=== PATIENT | male | born 1940 | race Caucasian/White ===

== ENCOUNTER 2016-03-04 00:08 | Emergency (ER) ==
[2016-03-04 00:08] VITALS: BMI 28.2
[2016-03-04 00:17] VITALS: BP 132/75; TEMP 97.6
--- NOTE | 2016-03-04 01:05 | ED.PDOC ---
General ED Provider: Dr. BASILIO CHANDRA-ER Chief Complaint: Foreign Body in Ear Stated Complaint: i have a piece of paper stuck in my ear Time Seen by Physician: 00:10 Mode of Arrival: Walk-In Information Source: Patient, Family Exam Limitations: No limitations Primary Care Provider: HIRA PARKER Nursing and Triage Documentation Reviewed and Agree: Yes EENT Complaint Exam - Ear Complaint/Exam Onset/Duration: one hour Symptoms Are: Still present Timing: Constant Initial Severity: Mild Current Severity: Mild Character: Reports: Dull pain Aggravating: Reports: Foreign body Alleviating: Reports: None Associated Signs and Symptoms: Denies: Ear trauma, Ear swelling, Discharge, Fever, Hearing loss, Bleeding, Sore throat, Headache, URI symptoms, Foreign body sensation, Rash, Pain to external ear, Pain to external face Ear Surgical History: None Vesicles to External Pinna: No Vesicles to Tragus: No External Canal: Normal Material in Canal: Present: Foreign body Differential Diagnoses: Foreign Body Review of Systems - Review Of Systems Constitutional: Reports: No symptoms Eyes: Reports: No symptoms Ears, Nose, Mouth, Throat: Reports: Ear pain Respiratory: Reports: No symptoms Cardiac: Reports: No symptoms GI: Reports: No symptoms : Reports: No symptoms Musculoskeletal: Reports: No symptoms Skin: Reports: No symptoms Neurological: Reports: No symptoms Endocrine: Reports: No symptoms Hematologic/Lymphatic: Reports: No symptoms All Other Systems: Reviewed and Negative Past Medical History - Past Medical History Endocrine: Reports: DM 2, Dyslipidemia Cardiovascular: Reports: Hypertension, CHF, A-Fib Respiratory: Reports: COPD Hematological: Reports: Anemia Gastrointestinal: Reports: GERD Genitourinary: Reports: None Neuro/Psych: Reports: Depression Musculoskeletal: Reports: Arthritis, Joint Pain, Gout Cancer: Reports: None - Surgical History General Surgical History: Reports: None - Family History Family History: Reports: None - Social History Smoking Status: Former smoker Hx Substance Use: No Alcohol Screening: None Lives: With family - Immunizations Tetanus Shot up to Date: Yes Physical Exam - Physical Exam Appearance: Well-appearing, No pain distress, Well-nourished Eyes: VISHAL, EOMI, Conjunctiva clear ENT: Ears normal (noted paper f.b in left ext canal), Nose normal, Oropharynx normal Neck: Supple Respiratory: Airway patent, Breath sounds clear, Breath sounds equal, Respirations nonlabored Cardiovascular: RRR GI/: Soft, Nontender, No masses, Bowel sounds normal, No Organomegaly Musculoskeletal: Normal strength, ROM intact, No edema, No calf tenderness Skin: Warm, Dry, Normal color Neurological: Sensation intact, Motor intact, Reflexes intact, Cranial nerves intact, Alert, Oriented Psychiatric: Affect appropriate, Mood appropriate Procedures - Foreign Body Removal Location of Foreign Object: left ext canal Foreign Object: paper Type of Anesthesia: None Irrigation: No Skin Incised: No Instruments Used: Yes: Forceps Foreign Body Identified and Removed: Yes Re-Evaluation - Re-Evaluation Time of Re-Evaluation: 01:05 Status: Improved Vital Signs Stable: Yes Pain Level: 0 Appearance: NAD Lungs: Clear Skin: Warm and Dry Neuro: Alert and Oriented X3 CV: RRR Critical Care Note - Critical Care Note Total Time (mins): 0 Course - Course Vital Signs: Temp Pulse Resp BP Pulse Ox 03/04/16 00:09 97.6 F 71 16 132/75 96 Departure - Departure Time of Disposition: 01:05 Disposition: HOME SELF-CARE Discharge Problem: Foreign body in ear Instructions: Ear Foreign Body (ED) Condition: Good Pt referred to PMD for follow-up: Yes Additional Instructions: rtn prn Allergies/Adverse Reactions: Allergies No Known Allergies Allergy (Verified 03/04/16 00:17) Home Medications: Ambulatory Orders Atorvastatin Calcium 40 mg PO DAILY 10/08/12 Digoxin 0.125 mg PO DAILY 10/08/12 Pantoprazole Sodium [Protonix] 40 mg PO BID 10/08/12 Rivaroxaban [Xarelto] 20 mg PO DAILY 10/08/12 Sotalol HCl [Sotalol] 80 mg PO BID 10/08/12 Cetirizine HCl [Zyrtec] 10 mg PO DAILY 03/11/13 Sitagliptin Phos/Metformin HCl [Janumet 50-1,000 mg Tablet] 1 each PO BID Levothyroxine Sodium [Synthroid] 150 mcg PO DAILY 06/02/14 [place]-3 Acid Ethyl Esters [Lovaza] 1 cap PO BID 06/03/15 Allopurinol 100 mg PO DAILY #30 tablet 06/08/15 Alprazolam [Xanax] 0.5 mg PO BID #60 tablet 06/08/15 Diltiazem HCl [Cardizem] 60 mg PO Q8HR #90 tablet 06/08/15 Furosemide [Lasix Tab] 40 mg PO BIDAC #60 tablet 06/08/15 Disposition Discussed With: Patient, Family
== END 2016-03-04 01:10 | disposition home or self-care (01) ==
LOC: ED 00:08
DX: T16.2XXA Foreign body in left ear, initial encounter (principal); X58.XXXA Exposure to other specified factors, initial encounter
CPT/HCPCS: 99282

== ENCOUNTER 2016-06-20 14:00 | Outpatient (RCR) ==
--- NOTE | 2016-06-07 15:51 | RS.OPPTEV2 ---
Date of Note: 06/07/16 Visit #: 1 Date of Evaluation: 06/07/16 Payer Source: MEDICARE Treatment Diagnosis: Low back pain, Degenerative Disc Disease, Sciatica History of Condition/Mechanism of Injury:: Patient reports a history of back problems for over twenty years. States this year pain has been worse. Reports no known injuries or reason for increased pain. Prior Level of Function.....Patient was independent with: ADL's, Self Care, Work /Vocation, Caregiving, Ambulation/Mobility, Community Integration/Access Functional Limitations: Sleep, ADL's, Reaching, Pushing, Pulling, Lifting, Carrying, Standing, Bending, Ambulation, Community Access/Integration Current Subjective/complaints:: Patient reports having a long history of low back pain. States for some reason, it has been worse this year. States he received an injection in the arm and just finished a steroid pack. Reports the injection and the steroid have helped decrease his pain. States pain has been in across the low back, into the buttocks, sides of the legs, and down. States pain never goes past the knees. He denies any weakness of numbness in the LE' s. Reports walking and standing causes him the most pain. He has been walking with a walking stick, which he feels helps him. Reports when he sits, he has to change positions frequently. States he gets a little relief when sitting in a recliner with his legs elevated. States he was told years ago that his back is a mess. He wants to avoid surgery. 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 States he has difficulty working with the horses. Reports having to lift 50# bags of feed. Medical History Medical History: Diabetes, Arthritis Smoking Status: Never smoker Diagnostic Testing/Imaging:: none recent Hx Home Medications: not given Patient's Goals: His goal is to get relief of low back and LE pain. Pain Assessment - Pain Description Pain Location: low back and into bilateral LE's. Current Pain Intensity: 8/10 Worst Pain Intensity: 10/10 Functional Outcome Measure Oswestry LBP: 62 - G Codes & Severity Modifier G Codes & Modifier: Mobility current CL. Mobility goal CJ Source of G Code score: Oswestry LBP scale Observation - Observation Posture: Forward Head, Rounded Shoulders, Increased Thoracic Kyphosis, Decreased Lumbar Lordosis, Posterior Pelvic Tilt Gait - Gait Pattern Gait Comments: Ambulates independently with a walking stick, without significant gait deviation. - ROM Lumbar Flexion: Hand reach to patellae Sidebending to Left: Reach to Mid-thigh Sidebending to Right: Reach to Mid-thigh Lumbar Spine ROM Limitations: Soft Tissue Tightness Comments: Lumbar extension to ~20 degrees past neutral with increased reports of pain. Bilateral LE AROM is WFL's. - Strength Trunk Rotation: 4 Good Comments: Bilateral LE 4+ to 5/5 throughout. - Special Tests HARLAN Test: Negative Left, Negative Right SLR Test: Negative Left, Negative Right Seated Dural Stretch Test: Negative Right, Positive Left, Positive Right SI Joint Compression: Negative Palpation Comments:: Patient reports no significant tenderness along the lumbar paraspinals. Demonstrates moderate muscle guarding along the lumbar paraspinals. Sensation - Sensation Right Lower Extremity: Intact/Normal Left Lower Extremity: Intact/Normal Additional Comments: Additional Comments: Left leg longer in long sitting and supine. (Patient states as a child he would have to have one shoe built up). Right SLR to 35 degrees in supine, Left SLR to 40-45 degrees. Interventions - Exercise/Activities/Manual Therapy Exercises/Activities: NA Manual Therapy: NA - Charges Total Direct Minutes: 45 mins Total Treatment Time: 45 mins Procedures billed for this date of service:: STEVEN [facility] Assessment Assessment: Patient presents to therapy with a diagnosis of low back pain. He demonstrates moderate increased muscle tone along the lumbar paraspinals. Reports difficulty tolerating standing and walking due to pain. Reports back pain and LE radiating symptoms. Presents with possibly an actual leg length descrepancy and does demonstrate an imbalance of hamstring flexibility. He will benefit from stretching exercies and progressed stability exercises to reduce his pain and increase his level of function. Patient Education: Education of diagnosis, Body/Joint mechanics, Activity Modification, Education of Plan of Care Rehab Potential: Good Short Term Goals Goal #1: Pt independent in basic HEP. Goal to be met by: 06/21/16 Goal #2: SLR bilaterally to 50 degrees. Goal to be met by: 06/21/16 Goal #3: LE pain localized to the low back. Goal to be met by: 06/21/16 Assisted Goals Goal #1: Pt knows HEP and to continue ex's to maintain functional level at D/C. Goal to be met by: 07/07/16 Goal #2: Score on Oswestry LBP scale improved to 38. Goal to be met by: 07/07/16 Goal #3: Pt to tolerate standing and walking as needed with minimal low back pain. Goal to be met by: 07/07/16 Goal #4: Pt to demonstrate understanding of back safety and proper body mechanics. Goal to be met by: 07/07/16 Plan - Treatment to be Provided Procedures: Therapeutic Exercises, Therapeutic Activity, Patient Education Modalities: Electrical Stimulation, Ultrasound/Phonophoresis, Cryotherapy, Hot Packs - Treatment Plan Frequency: 3 X week Duration: 3 weeks ORDER # VISITS AND/OR THROUGH DATE: 07/07/16 - Treatment Code (1) Low back pain Qualifiers: Chronicity: unspecified Back pain laterality: unspecified Sciatica presence: with sciatica Sciatica laterality: bilateral sciatica Qualified Description: Low back pain with bilateral sciatica, unspecified back pain laterality, unspecified chronicity Qualifier Code(s): (M54.42) Lumbago with sciatica, left side, (M54.41) Lumbago with sciatica, right side (2) Lumbar degenerative disc disease Comments: M51.36
--- NOTE | 2016-06-09 13:10 | RS.OPPTDN ---
Subjective Date of Note: 06/09/16 Visit #: 2 Date of Evaluation: 06/07/16 Payer Source: MEDICARE Treatment Diagnosis: Low back pain, Degenerative Disc Disease, Sciatica Current Subjective/complaints:: Patient reports pain across S-I joint with left side greater than right. Reports pain radiates at times from left S-I joint around to the left hip. Pain Assessment - Pain Description Pain Location: low back and into bilateral LE's. Current Pain Intensity: 8/10 Other Comments regarding Pain:: Reports pain decreased following treatment in mild to mod range. - Treatment Modality: US with ES (Comb.) Parameters/Method Applied: [id number] with US at 1.5w/cm2 and Estim to 18p.v. to the bilateral lumbar paraspinals and S-I joints. Patient Position: Right Sidelying - Heat/Cryotherapy Treatment: Hot Pack ([id number] to the low back and hips prior to USCOM and EX. Patient in supine. ) Interventions - Exercise/Activities/Manual Therapy Exercises/Activities: [id number] Assisted stretching of the bilateral hamstrings, SKTC, and piriformis. Reveiwed dx, body mechanics, safety, and HEP. Patient given copies of exercises. Total minutes of Exercise: 15mins Manual Therapy: NA HOME EXERCISE PROGRAM: HS, piriformis, and SKTC stretching. - Charges Total Direct Minutes: 29mins Total Treatment Time: 49mins Procedures billed for this date of service:: HP, USCOM, EX Assessment: Patient responded well to treamtent and appears motivated to progress with HEP. Patient Education: Education of diagnosis, Body/Joint mechanics, Home Exercise Program Patient demonstrates compliance with HEP?: Yes Short Term Goals Goal #1: Pt independent in basic HEP. Goal to be met by: 06/21/16 Progress towards Goal:: Progressing Goal #2: SLR bilaterally to 50 degrees. Goal to be met by: 06/21/16 Goal #3: LE pain localized to the low back. Goal to be met by: 06/21/16 Fdc Goals Goal #1: Pt knows HEP and to continue ex's to maintain functional level at D/C. Goal to be met by: 07/07/16 Progress towards goal: Progressing Goal #2: Score on Oswestry LBP scale improved to 38. Goal to be met by: 07/07/16 Goal #3: Pt to tolerate standing and walking as needed with minimal low back pain. Goal to be met by: 07/07/16 Progress towards goal: Progressing Goal #4: Pt to demonstrate understanding of back safety and proper body mechanics. Goal to be met by: 07/07/16 Plan PLAN OF CARE EXPIRES ON:: 07/07/16 ORDER # VISITS AND/OR THROUGH DATE: 07/07/16 PLAN: Continue Plan of Care
--- NOTE | 2016-06-12 13:18 | RS.OPPTDN ---
Subjective Date of Note: 06/12/16 Visit #: 3 Date of Evaluation: 06/07/16 Payer Source: MEDICARE Treatment Diagnosis: Low back pain, Degenerative Disc Disease, Sciatica Current Subjective/complaints:: Patient reports last treatment reduced pain and he was able to be more mobilie around his home. States he has some muscle soreness in LE's which he believes is due to starting exercise. Pain Assessment - Pain Description Pain Location: low back and into bilateral LE's. Current Pain Intensity: moderate, does not rate on 0-10 scale - Treatment Modality: US with ES (Comb.) Parameters/Method Applied: [id number] with US at 1.5w/cm2 and Estim to 18-19 p.v. to the bilateral lower lumbar paraspinals and S-I joints. Patient Position: Right Sidelying - Heat/Cryotherapy Treatment: Hot Pack ([id number] to lowback and hips prior to USCOM and EX. Patient in supine with LE's elevated. ) Interventions - Exercise/Activities/Manual Therapy Exercises/Activities: [id number] Assisted stretching of the bilateral hamstrings, SKTC, and piriformis. Reveiwed HEP and advised patient to continue stretching exercise with no additions. Total minutes of Exercise: 10mins Manual Therapy: NA HOME EXERCISE PROGRAM: HS, piriformis, and SKTC stretching. - Charges Total Direct Minutes: 24mins Total Treatment Time: 44mins Procedures billed for this date of service:: HP, USCOM, EX Assessment: Patient reporting good response to treatment. He will need to continue flexibility exercises and progress to trunk stability when tolerated. Patient Education: Body/Joint mechanics, Home Exercise Program, Activity Modification Patient demonstrates compliance with HEP?: Yes Short Term Goals Goal #1: Pt independent in basic HEP. Goal to be met by: 06/21/16 Progress towards Goal:: Progressing Goal #2: SLR bilaterally to 50 degrees. Goal to be met by: 06/21/16 Goal #3: LE pain localized to the low back. Goal to be met by: 06/21/16 Malt House Operator Goals Goal #1: Pt knows HEP and to continue ex's to maintain functional level at D/C. Goal to be met by: 07/07/16 Progress towards goal: Progressing Goal #2: Score on Oswestry LBP scale improved to 38. Goal to be met by: 07/07/16 Goal #3: Pt to tolerate standing and walking as needed with minimal low back pain. Goal to be met by: 07/07/16 Progress towards goal: Progressing Goal #4: Pt to demonstrate understanding of back safety and proper body mechanics. Goal to be met by: 07/07/16 Progress towards goal: Progressing Plan PLAN OF CARE EXPIRES ON:: 07/07/16 ORDER # VISITS AND/OR THROUGH DATE: 07/07/16 PLAN: Continue Plan of Care (Continue modalities and progressive exercise to reduce pain and increase functional activity level.)
--- NOTE | 2016-06-14 14:32 | RS.OPPTDN ---
Subjective Date of Note: 06/14/16 Visit #: 4 Date of Evaluation: 06/07/16 Payer Source: MEDICARE Treatment Diagnosis: Low back pain, Degenerative Disc Disease, Sciatica Current Subjective/complaints:: Patient reports lowback and S-I region pain continues to improve. Now reports discomfort at lateral hip joints. States he is working on HEP and continues to walk with cane. Pain Assessment - Pain Description Pain Location: low back and into bilateral LE's. Current Pain Intensity: moderate, does not rate on 0-10 scale - Treatment Modality: US with ES (Comb.) Parameters/Method Applied: [id number] US at 1.5w/cm2 and Estim at 17p.v. to the bilateral lower lumbar paraspinals, S-I joints, and out to piriformis insertion at lateral hips. Patient in side-lying and changes sides midway through treatment. - Heat/Cryotherapy Treatment: Hot Pack ([id number] to the lowback and hips prior to USCOM and EX. Patient in supine. ) Interventions - Exercise/Activities/Manual Therapy Exercises/Activities: Discussed HEP. Advised patient to rest when he gets home and resume exercise in the afternoon. Manual Therapy: NA HOME EXERCISE PROGRAM: HS, piriformis, and SKTC stretching. - Charges Total Direct Minutes: 14mins Total Treatment Time: 34mins Procedures billed for this date of service:: HP, USCOM Assessment: Patient with increased discomfort at the lateral hips. He will need to rest and resume gentle stretching in afternoon. Patient Education: Home Exercise Program Patient demonstrates compliance with HEP?: Yes Short Term Goals Goal #1: Pt independent in basic HEP. Goal to be met by: 06/21/16 Progress towards Goal:: Progressing Goal #2: SLR bilaterally to 50 degrees. Goal to be met by: 06/21/16 Goal #3: LE pain localized to the low back. Goal to be met by: 06/21/16 Title Curator Goals Goal #1: Pt knows HEP and to continue ex's to maintain functional level at D/C. Goal to be met by: 07/07/16 Progress towards goal: Progressing Goal #2: Score on Oswestry LBP scale improved to 38. Goal to be met by: 07/07/16 Goal #3: Pt to tolerate standing and walking as needed with minimal low back pain. Goal to be met by: 07/07/16 Progress towards goal: Progressing Goal #4: Pt to demonstrate understanding of back safety and proper body mechanics. Goal to be met by: 07/07/16 Progress towards goal: Progressing Plan PLAN OF CARE EXPIRES ON:: 07/07/16 ORDER # VISITS AND/OR THROUGH DATE: 07/07/16 PLAN: Continue Plan of Care (Continue modalities and progress exercise next session as tolerated.)
--- NOTE | 2016-06-16 12:09 | RS.OPPTDN ---
Subjective Date of Note: 06/16/16 Visit #: 5 Date of Evaluation: 06/07/16 Payer Source: MEDICARE Treatment Diagnosis: Low back pain, Degenerative Disc Disease, Sciatica Current Subjective/complaints:: Patient reports the muscle soreness in his legs from exercising is improving.He also reports doing his stretches 3x/day. Pain Assessment - Pain Description Pain Location: low back and into bilateral LE's. Current Pain Intensity: /10 - Treatment Modality: US with ES (Comb.) Parameters/Method Applied: US @ 1.5 w/cm2,e-stim @ 15-16pv x 20 mins. total,(10 mins. each side). Treatment Area: lumbar/lateral aspect of each hip - Heat/Cryotherapy Treatment: Hot Pack (20 mins. prior to USCOM,and exercises) Interventions - Exercise/Activities/Manual Therapy Exercises/Activities: 20 mins.SKTC,hamstring stretches,piriformis stretches,HEP review/body mechanics education. Total minutes of Exercise: 20 Manual Therapy: NA Total minutes of Manual Therapy: 0 HOME EXERCISE PROGRAM: HS, piriformis, and SKTC stretching. - Charges Total Direct Minutes: 20 Total Treatment Time: 40 Procedures billed for this date of service:: hp,USCOM,ex 1 Assessment: Patient reports relief after treatment today,has improved rolling to L and R with les report of back pain.He reports relief when sleeping on his back if knees are supported/flexed on pillow.He is compliant to HEP.He enters / exits clinic today without assistive device. Patient Education: Education of diagnosis, Body/Joint mechanics, Home Exercise Program, Home Safety, Activity Modification, Education of Plan of Care Patient demonstrates compliance with HEP?: Yes Short Term Goals Goal #1: Pt independent in basic HEP. Goal to be met by: 06/21/16 Progress towards Goal:: Progressing Goal #2: SLR bilaterally to 50 degrees. Goal to be met by: 06/21/16 Progress towards Goal:: Progressing Goal #3: LE pain localized to the low back. Goal to be met by: 06/21/16 (still in hips,thighs today) Icer Hand Goals Goal #1: Pt knows HEP and to continue ex's to maintain functional level at D/C. Goal to be met by: 07/07/16 Progress towards goal: Progressing Goal #2: Score on Oswestry LBP scale improved to 38. Goal to be met by: 07/07/16 Goal #3: Pt to tolerate standing and walking as needed with minimal low back pain. Goal to be met by: 07/07/16 Progress towards goal: Progressing Goal #4: Pt to demonstrate understanding of back safety and proper body mechanics. Goal to be met by: 07/07/16 Progress towards goal: Progressing Plan PLAN OF CARE EXPIRES ON:: 07/07/16 ORDER # VISITS AND/OR THROUGH DATE: 07/07/16 PLAN: Continue Plan of Care
--- NOTE | 2016-06-20 15:02 | RS.OPPTDN ---
Subjective Date of Note: 06/20/16 Visit #: 6 Date of Evaluation: 06/07/16 Payer Source: MEDICARE Treatment Diagnosis: Low back pain, Degenerative Disc Disease, Sciatica Current Subjective/complaints:: Patient reports he is sleeping better,but his legs and hips are bothering him more today. Pain Assessment - Pain Description Pain Location: low back and into bilateral LE's. Current Pain Intensity: 7/10 - Heat/Cryotherapy Treatment: Hot Pack (20 mins. to lumbar prior to manual therapy.) Interventions - Exercise/Activities/Manual Therapy Exercises/Activities: HEP review while on moist heat. Total minutes of Exercise: 0 Manual Therapy: 30 mins. deep tissue massage to paraspinals. Total minutes of Manual Therapy: 30 HOME EXERCISE PROGRAM: HS, piriformis, and SKTC stretching. - Charges Total Direct Minutes: 30 Total Treatment Time: 50 Procedures billed for this date of service:: hp,manual therapy 2 Assessment: Reports relief after manual therapy today.He continues to be complaint to HEP 3x/day.He reports no tenderness upon deep pressure application to the paraspinals today. Patient Education: Education of diagnosis, Body/Joint mechanics, Home Exercise Program, Home Safety, Activity Modification, Education of Plan of Care Patient demonstrates compliance with HEP?: Yes Short Term Goals Goal #1: Pt independent in basic HEP. Goal to be met by: 06/21/16 Progress towards Goal:: Progressing Goal #2: SLR bilaterally to 50 degrees. Goal to be met by: 06/21/16 Progress towards Goal:: Progressing Goal #3: LE pain localized to the low back. Goal to be met by: 06/21/16 (still in hips,thighs today) Supervisor [employer] Assembly Goals Goal #1: Pt knows HEP and to continue ex's to maintain functional level at D/C. Goal to be met by: 07/07/16 Progress towards goal: Partially Met Goal #2: Score on Oswestry LBP scale improved to 38. Goal to be met by: 07/07/16 Goal #3: Pt to tolerate standing and walking as needed with minimal low back pain. Goal to be met by: 07/07/16 Progress towards goal: Progressing Goal #4: Pt to demonstrate understanding of back safety and proper body mechanics. Goal to be met by: 07/07/16 Progress towards goal: Progressing Plan PLAN OF CARE EXPIRES ON:: 07/07/16 ORDER # VISITS AND/OR THROUGH DATE: 07/07/16 PLAN: Continue Plan of Care
== END 2016-06-25 ==
PROVIDERS: ATTEND Orthopaedic Surgery
DX: M51.16 Intervertebral disc disorders with radiculopathy, lumbar region (principal)

== ENCOUNTER 2016-07-06 09:00 | Outpatient (RCR) ==
--- NOTE | 2016-06-27 14:18 | RS.OPPTDN ---
Subjective Date of Note: 06/27/16 Visit #: 7 Date of Evaluation: 06/07/16 Payer Source: MEDICARE Treatment Diagnosis: Low back pain, Degenerative Disc Disease, Sciatica Current Subjective/complaints:: Patient admits pain to both hips and low back at the spine. He says he is faithful with performing stretches 3 times per day. He says he believes PT is helping. Pain Assessment - Pain Description Pain Location: low back and into bilateral LE's. Current Pain Intensity: "not too bad" - Treatment Modality: US with ES (Comb.) Parameters/Method Applied: continuous @1.5 w/cm2 and 15-17 pk volts x 10 mins to the R hip and 10 to the bilateral lumbar paraspinals Patient Position: Left Sidelying - Heat/Cryotherapy Treatment: Hot Pack (mid to low back in supine x 20) Interventions - Exercise/Activities/Manual Therapy Exercises/Activities: Passive stretching of SKTC, Piriformis, Fig 4, HS, Lower trunk rotation x 4 bilaterally. Total minutes of Exercise: 16 Manual Therapy: na HOME EXERCISE PROGRAM: HS, piriformis, and SKTC stretching. - Charges Total Direct Minutes: 36 Total Treatment Time: 56 Procedures billed for this date of service:: hp, u/s with estim, ex Assessment: Patient is improving with less back and hip pain and pain that is localizing to the lumbar spine. No pain exists beyond the hips distally. He is consistent with HEP and able to eleanor increased stretching in the department. Limitation seen with hip ER bilaterally. Patient Education: Education of diagnosis, Body/Joint mechanics, Home Exercise Program, Home Safety, Activity Modification, Education of Plan of Care Patient demonstrates compliance with HEP?: Yes Short Term Goals Goal #1: Pt independent in basic HEP. Goal to be met by: 06/21/16 Progress towards Goal:: Progressing Goal #2: SLR bilaterally to 50 degrees. Goal to be met by: 06/21/16 Progress towards Goal:: Progressing Goal #3: LE pain localized to the low back. Goal to be met by: 06/21/16 (still in hips,thighs today) Progress towards Goal:: Progressing Inspector Hairspring Goals Goal #1: Pt knows HEP and to continue ex's to maintain functional level at D/C. Goal to be met by: 07/07/16 Progress towards goal: Partially Met Goal #2: Score on Oswestry LBP scale improved to 38. Goal to be met by: 07/07/16 Goal #3: Pt to tolerate standing and walking as needed with minimal low back pain. Goal to be met by: 07/07/16 Progress towards goal: Progressing Goal #4: Pt to demonstrate understanding of back safety and proper body mechanics. Goal to be met by: 07/07/16 Progress towards goal: Progressing Plan PLAN OF CARE EXPIRES ON:: 07/07/16 ORDER # VISITS AND/OR THROUGH DATE: 07/07/16 PLAN: Progress Exercises
--- NOTE | 2016-06-30 12:04 | RS.OPPTDN ---
Subjective Date of Note: 06/30/16 Visit #: 8 Date of Evaluation: 06/07/16 Payer Source: MEDICARE Treatment Diagnosis: Low back pain, Degenerative Disc Disease, Sciatica Current Subjective/complaints:: Patient says that his back has been feeling better with therapy, but c/o stiffness today related to the damp, cool weather. States he had severe cramping to both legs last night (hamstrings) that awakened him. Pain Assessment - Pain Description Pain Location: low back and into bilateral LE's. Current Pain Intensity: "not too bad" - Treatment Modality: US with ES (Comb.) Parameters/Method Applied: continuous @ 1.5 w/cm2 and 13 pk volts x 16 mins bilateral lumbar paraspinals and hips Patient Position: Right Sidelying - Heat/Cryotherapy Treatment: Hot Pack (mid to low back in supine x 20 mins) Interventions - Exercise/Activities/Manual Therapy Exercises/Activities: Passive stretching of SKTC, Piriformis, Fig 4, HS, Lower trunk rotation x 3 bilaterally. Pillow squeezes, isometric hip abd/flexion, and bridging 2/10. Total minutes of Exercise: 17 Manual Therapy: na HOME EXERCISE PROGRAM: HS, piriformis, and SKTC stretching. - Charges Total Direct Minutes: 33 Total Treatment Time: 53 Procedures billed for this date of service:: hp, u/s with estim, ex Assessment: Patient has been having less pain to his hips and back pain is centralized to the lumbar spine, however, he continues with bilateral hamstring cramping. Patient Education: Education of diagnosis, Body/Joint mechanics, Home Exercise Program, Home Safety, Activity Modification, Education of Plan of Care Patient demonstrates compliance with HEP?: Yes Short Term Goals Goal #1: Pt independent in basic HEP. Goal to be met by: 06/21/16 Progress towards Goal:: Progressing Goal #2: SLR bilaterally to 50 degrees. Goal to be met by: 06/21/16 Progress towards Goal:: Progressing Goal #3: LE pain localized to the low back. Goal to be met by: 06/21/16 (still in hips,thighs today) Progress towards Goal:: Progressing Marketing Communications Manager Goals Goal #1: Pt knows HEP and to continue ex's to maintain functional level at D/C. Goal to be met by: 07/07/16 Progress towards goal: Partially Met Goal #2: Score on Oswestry LBP scale improved to 38. Goal to be met by: 07/07/16 Goal #3: Pt to tolerate standing and walking as needed with minimal low back pain. Goal to be met by: 07/07/16 Progress towards goal: Progressing Goal #4: Pt to demonstrate understanding of back safety and proper body mechanics. Goal to be met by: 07/07/16 Progress towards goal: Progressing Plan PLAN OF CARE EXPIRES ON:: 07/07/16 ORDER # VISITS AND/OR THROUGH DATE: 07/07/16 PLAN: Progress Exercises
--- NOTE | 2016-07-04 11:53 | RS.OPPTDN ---
Subjective Date of Note: 07/04/16 Visit #: 9 Date of Evaluation: 06/07/16 Payer Source: MEDICARE Treatment Diagnosis: Low back pain, Degenerative Disc Disease, Sciatica Current Subjective/complaints:: Patient reports the pain is elevated in the low back today,none in the hips at this time. Pain Assessment - Pain Description Pain Location: low back and into bilateral LE's. Pain Description: Tightness, Dull, Aching Current Pain Intensity: 10 - Treatment Modality: US with ES (Comb.) Parameters/Method Applied: 15 mins. with US @ 1.5 w/cm2,continuous @ 13 pv to lumbar/SI borders. Patient Position: Left Sidelying (20 mins. prior to US/combo and exercises) - Heat/Cryotherapy Treatment: Hot Pack (20 mins.in supine prior to US/combo and exercises) Interventions - Exercise/Activities/Manual Therapy Exercises/Activities: Passive stretching of SKTC, Piriformis, Fig 4, HS.HEP review. Total minutes of Exercise: 15 Manual Therapy: na Total minutes of Manual Therapy: 0 HOME EXERCISE PROGRAM: HS, piriformis, and SKTC stretching. - Charges Total Direct Minutes: 30 Total Treatment Time: 50 Procedures billed for this date of service:: hp,US/combo,ex 1 Assessment: Patient reports relief immediately after treatment with initial standing.We discussed removing the L orthotic in his shoe for short durations due to leg length discrepancy (L LE is longer then R LE) to see if this affects his back pain.He understands if this elevates his pain ,return to using the orthotics in both shoes. Patient Education: Education of diagnosis, Body/Joint mechanics, Home Exercise Program, Home Safety, Activity Modification, Education of Plan of Care Short Term Goals Goal #1: Pt independent in basic HEP. Goal to be met by: 06/21/16 Progress towards Goal:: Progressing Goal #2: SLR bilaterally to 50 degrees. Goal to be met by: 06/21/16 Progress towards Goal:: Progressing Goal #3: LE pain localized to the low back. 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 Goal to be met by: 07/07/16 Progress towards goal: Partially Met Goal #2: Score on Oswestry LBP scale improved to 38. Goal to be met by: 07/07/16 Goal #3: Pt to tolerate standing and walking as needed with minimal low back pain. Goal to be met by: 07/07/16 Progress towards goal: Progressing Goal #4: Pt to demonstrate understanding of back safety and proper body mechanics. Goal to be met by: 07/07/16 Progress towards goal: Progressing Plan PLAN OF CARE EXPIRES ON:: 07/07/16 ORDER # VISITS AND/OR THROUGH DATE: 07/07/16 PLAN: Continue Plan of Care
--- NOTE | 2016-07-06 10:55 | RS.OPPTDN ---
Subjective Date of Note: 07/06/16 Date of Evaluation: 06/07/16 Payer Source: MEDICARE Treatment Diagnosis: Low back pain, Degenerative Disc Disease, Sciatica Current Subjective/complaints:: Patient reports sleeping better,but feels the PT sessions are only giving him temporary relief.He understands to continue HEP and is aware of D/C plan. Pain Assessment - Pain Description Pain Location: low back and into bilateral LE's. Pain Description: Tightness, Dull, Aching Current Pain Intensity: 09/04 - Treatment Modality: US with ES (Comb.) Parameters/Method Applied: 15 mins. @1.5 w/cm2,continuous mode,and 13 pv of e- stim to lumbar. Patient Position: Right Sidelying - Heat/Cryotherapy Treatment: Hot Pack (20 mins. prior to modalities.) Interventions - Exercise/Activities/Manual Therapy Exercises/Activities: HEP review while receiving modalities. Total minutes of Exercise: 0 Manual Therapy: na Total minutes of Manual Therapy: 0 HOME EXERCISE PROGRAM: HS, piriformis, and SKTC stretching. - Charges Total Direct Minutes: 15 Total Treatment Time: 35 Procedures billed for this date of service:: hp,us/combo Assessment: Patient has no significant change,reports the low back pain seems to be slightly better,but the hips are still rather painful.He understands the D /C plan due to no significant change.He has an appt. @ pain management clinic on 07-07-16. Patient Education: Body/Joint mechanics, Home Exercise Program, Home Safety, Activity Modification, Education of Plan of Care Short Term Goals Goal #1: Pt independent in basic HEP. Goal to be met by: 06/21/16 Progress towards Goal:: Progressing Goal #2: SLR bilaterally to 50 degrees. Goal to be met by: 06/21/16 Progress towards Goal:: No Change Goal #3: LE pain localized to the low back. Goal to be met by: 06/21/16 (localized today,but inconsistent) Progress towards Goal:: Progressing Custodial Goals Goal #1: Pt knows HEP and to continue ex's to maintain functional level at D/C. Goal to be met by: 07/07/16 Progress towards goal: Partially Met Goal #2: Score on Oswestry LBP scale improved to 38. Goal to be met by: 07/07/16 Progress towards goal: No Change Goal #3: Pt to tolerate standing and walking as needed with minimal low back pain. Goal to be met by: 07/07/16 Progress towards goal: Progressing Goal #4: Pt to demonstrate understanding of back safety and proper body mechanics. Goal to be met by: 07/07/16 Progress towards goal: Progressing Plan PLAN OF CARE EXPIRES ON:: 07/07/16 ORDER # VISITS AND/OR THROUGH DATE: 07/07/16 PLAN: Plan for Discharge
--- NOTE | 2016-08-08 14:40 | RS.OPPTDC ---
Date of Discharge: 07/04/16 Date of Evaluation: 06/07/16 Number of Visits: 9 Treatment Diagnosis: Low back pain, Degenerative Disc Disease, Sciatica Current Complaints/Gains: Patient reports sleeping better, but feels the therapy is temporary relief only. Pain Assessment - Pain Description Pain Location: low back and into bilateral LE's. Pain Description: Tightness, Dull, Aching Current Pain Intensity: 7/10 Functional Outcome Measure Oswestry LBP: 62 - G Codes & Severity Modifier G Codes & Modifier: Mob goal CJ. Mob D/C CL Source of G Code score: Oswestry LBP scale Interventions - Exercise/Activities/Manual Therapy Exercises/Activities: NA Manual Therapy: na HOME EXERCISE PROGRAM: HS, piriformis, and SKTC stretching. - Objective Findings Observations,measurements,etc.: SLR 45 degrees bilaterally. LE strength 4+ to 5/ 5. - Charges Total Direct Minutes: NA Total Treatment Time: NA Procedures billed for this date of service:: NA Assessment Assessment: Patient with reports of improved sleeping, but feels therapy has only provided temporary relief of symptoms. He continues to rate pain 7/10 on last visit. Further therapy not indicated as no lasting benefits are reported. Short Term Goals Goal #1: Pt independent in basic HEP. Goal to be met by: 06/21/16 Progress towards Goal:: Met Goal #2: SLR bilaterally to 50 degrees. Goal to be met by: 06/21/16 Progress towards Goal:: Not Met Goal #3: LE pain localized to the low back. Goal to be met by: 06/21/16 (localized today,but inconsistent) Progress towards Goal:: Not Met Comments:: not consistently localized [facility] Goals Goal #1: Pt knows HEP and to continue ex's to maintain functional level at D/C. Goal to be met by: 07/07/16 Progress towards goal: Partially Met Goal #2: Score on Oswestry LBP scale improved to 38. Goal to be met by: 07/07/16 Progress towards goal: Not Met Goal #3: Pt to tolerate standing and walking as needed with minimal low back pain. Goal to be met by: 07/07/16 Progress towards goal: Not Met Goal #4: Pt to demonstrate understanding of back safety and proper body mechanics. Goal to be met by: 07/07/16 Progress towards goal: Met Plan Reason for Discharge:: Lack of Progress
== END 2016-07-26 ==
PROVIDERS: ATTEND Orthopaedic Surgery
DX: M51.36 Other intervertebral disc degeneration, lumbar region (principal); M54.40 Lumbago with sciatica, unspecified side; G89.29 Other chronic pain

== ENCOUNTER 2016-07-31 14:20 | Emergency (ER) ==
[2016-07-31 14:20] VITALS: BMI 28.2
[2016-07-31 14:23] VITALS: BP 154/96; TEMP 98.8
[2016-07-31] MEDS ORDERED: CARDIZEM PO STA (14:32)
--- NOTE | 2016-07-31 14:40 | ED.PDOC ---
General ED Provider: Dr. JENNIFER HERNANDEZ JR Chief Complaint: Hypertension Stated Complaint: had bp at pain management of 132/108 and they told him to come be seen. also complains of shortness of air and nosebleeds[ End ]98.8 20 94 154/96 10/10 CONGESTED HAVING CRYING SPELLS Time Seen by Physician: 14:40 Mode of Arrival: Walk-In Information Source: Patient Exam Limitations: No limitations Primary Care Provider: HIRA PARKER Nursing and Triage Documentation Reviewed and Agree: No Review of Systems - Review Of Systems Constitutional: Reports: Malaise, Weakness Eyes: Reports: No symptoms Ears, Nose, Mouth, Throat: Reports: No symptoms Respiratory: Reports: Cough, Short of air Cardiac: Reports: Lightheadedness GI: Reports: No symptoms : Reports: No symptoms Musculoskeletal: Reports: Back pain Skin: Reports: No symptoms Neurological: Reports: Emotional problems (CRYING SPELLS) Endocrine: Reports: No symptoms Hematologic/Lymphatic: Reports: No symptoms All Other Systems: Other Past Medical History - Past Medical History Endocrine: Reports: DM 2, Dyslipidemia, Other (GOUT) Cardiovascular: Reports: CAD, Hypertension, CHF, A-Fib Respiratory: Reports: COPD Hematological: Reports: Anemia Gastrointestinal: Reports: GERD Genitourinary: Reports: None Neuro/Psych: Reports: Anxiety, Depression Musculoskeletal: Reports: Arthritis, Joint Pain, Gout Cancer: Reports: None - Surgical History General Surgical History: Reports: None, Cholecystectomy, Orthopedic (LEFT knee replacement, 2 broken arms), Other ( RIGHT CAROTID) - Family History Family History: Reports: None - Social History Smoking Status: Former smoker Hx Substance Use: No Alcohol Screening: None Physical Exam - Physical Exam Appearance: Well-appearing Ill-appearing: Mild Pain Distress: Mild Eyes: VISHAL, EOMI, Conjunctiva clear ENT: Ears normal, Nose normal, Oropharynx normal Neck: Supple Respiratory: Airway patent, Breath sounds diminished Cardiovascular: RRR, Pulses normal, No rub, No murmur GI/: Soft, Nontender, No masses, Bowel sounds normal, No Organomegaly Musculoskeletal: Normal strength, ROM intact, No edema, No calf tenderness (LOW BACK TNDERNESS COMPLAINS OF DECREASSED STRENGHTH) Critical Care Note - Critical Care Note Total Time (mins): 0 Course - Course Orders, Labs, Meds: Orders Category Date Time Status Diltiazem HCl [Cardizem] MEDS 07/31/16 14:32 Discontinued 60 mg PO ONCE STA CHEST, 2 VIEWS PA & LAT Stat RADS 07/31/16 14:48 Completed Medications Discontinued Medications Generic Name Dose Route Start Last Admin Trade Name Huong PRN Reason Stop Dose Admin Diltiazem HCl 60 mg 07/31/16 14:32 07/31/16 14:47 Cardizem PO 07/31/16 14:33 60 mg ONCE STA Administration Vital Signs: Temp Pulse Resp BP Pulse Ox 07/31/16 14:20 98.8 F 111 H 20 154/96 H 94 L EFRA Risk Score EFRA Risk Score: Risk Score Odds of by 30D 0 0.1 (0.1-0.2) 1 0.3 (0.2-0.3) 2 0.4 (0.3-0.5) 3 0.7 (0.6-0.9) 4 1.2 (1.0-1.5) 5 2.2 (1.9-2.6) 6 3.0 (2.5-3.6) 7 4.8 (3.8-6.1) Departure - Departure Time of Disposition: 15:28 Disposition: HOME SELF-CARE Discharge Problem: Pneumonia Qualifiers: Pneumonia type: due to unspecified organism Laterality: unspecified laterality Lung location: unspecified part of lung Qualifier Code: (J18.9) Pneumonia, unspecified organism Instructions: Pneumonia (ED) Condition: Good Pt referred to PMD for follow-up: Yes Additional Instructions: ANTIBIOTIC UNTIL GONE CALL PMD TOMORROW FOR FOLLOW UP RETURN IF SHORT OF BREATH, IF FEVER OVER 101.0, IF WORSENING DISCUSS CRYING SPELLS WITH PMD REVIEW BLOOD PRESSURE TAKE FOUR CARDIZEM A DAY AND CHECK YOUR BLOOD PRESSURE TWICE A DAY AND RECORD LEVELS Prescriptions: Diltiazem HCl [Cardizem] 60 mg PO QID #120 tablet Doxycycline Monohydrate [Monodox] 100 mg PO BID #20 capsule Allergies/Adverse Reactions: Allergies acetaminophen [From [place]] Adverse Reaction (Verified 07/31/16 14:23) hydrocodone [From [place]] Adverse Reaction (Verified 07/31/16 14:23) Home Medications: Ambulatory Orders Atorvastatin Calcium 40 mg PO DAILY 10/08/12 Digoxin 0.125 mg PO DAILY 10/08/12 Pantoprazole Sodium [Protonix] 40 mg PO BID 10/08/12 Rivaroxaban [Xarelto] 20 mg PO DAILY 10/08/12 Sotalol HCl [Sotalol] 80 mg PO BID 10/08/12 Cetirizine HCl [Zyrtec] 10 mg PO DAILY 03/11/13 Sitagliptin Phos/Metformin HCl [Janumet 50-1,000 mg Tablet] 1 each PO BID Levothyroxine Sodium [Synthroid] 150 mcg PO DAILY 06/02/14 Rhododendron-3 Acid Ethyl Esters [Lovaza] 1 cap PO BID 06/03/15 Allopurinol 100 mg PO DAILY #30 tablet 06/08/15 Alprazolam [Xanax] 0.5 mg PO BID #60 tablet 06/08/15 Diltiazem HCl [Cardizem] 60 mg PO Q8HR #90 tablet 06/08/15 Furosemide [Lasix Tab] 40 mg PO BIDAC #60 tablet 06/08/15 Diltiazem HCl [Cardizem] 60 mg PO QID #120 tablet 07/31/16 Doxycycline Monohydrate [Monodox] 100 mg PO BID #20 capsule 07/31/16
--- NOTE | 2016-07-31 15:20 | DI ---
EXAM: Two views of the chest. History: Cough and congestion. Comparison: Chest radiograph 07/10/2015 Findings: Heart size is normal. Interval development of interstitial thickening. No definite pleu ral fluid and no pneumothorax. No acute osseous abnormalities. Impression: Interval development of interstitial thickening could represent edema and/or pneumonia.
== END 2016-07-31 16:51 | disposition home or self-care (01) ==
LOC: ED 14:20
DX: J18.9 Pneumonia, unspecified organism (principal); I10 Essential (primary) hypertension; R45.83 Excessive crying of child, adolescent or adult; Z79.899 Other long term (current) drug therapy
CPT/HCPCS: 99283

== ENCOUNTER 2017-01-21 15:52 | Inpatient (IN) ==
[2017-01-21 16:12] LABS: BASOPHILS # (AUTO) 0.1 K/uL (0-0.2); BASOPHILS % (AUTO) 0.4 % (0.0-3.0); EOSINOPHILS # (AUTO) 0.1 K/ul (0.0-0.7); EOSINOPHILS % (AUTO) 0.8 % (0.0-7.0); HEMATOCRIT 37.6 % (42.0-52.0); HEMOGLOBIN 12.4 g/dl (14.0-18.0); IMMATURE GRANULOCYTE % (AUTO) 1.2 % (0.0-5.0); LYMPHOCYTES # (AUTO) 3.7 K/uL (0.60-3.4); MEAN CORPUSCULAR HEMOGLOBIN 27.7 pg (27.0-31.0); MEAN CORPUSCULAR VOLUME 83.9 fl (80.0-94.0); MONOCYTES # (AUTO) 1.2 K/uL (0.4-2.0); MONOCYTES % (AUTO) 10.3 (0-10); NEUTROPHILS # (AUTO) 6.5 K/ul (2.0-6.9); NEUTROPHILS % (AUTO) 55.3; PLATELET COUNT 305 10^3/uL (140-440); RED BLOOD COUNT 4.48 10^6/ul (4.70-6.10); WHITE BLOOD COUNT 11.68 K/ul (4.2-10.2)
--- NOTE | 2017-01-21 16:42 | CT ---
EXAM: CT Head HISTORY: Facial numbness COMPARISON: 04/15/2012 TECHNIQUE: CT head performed without contrast FINDINGS: There is no mass effect, midline shift, or intracranial hemmorhage. Moreau white differenti ation is preserved. There is no extra-axial collection. The ventricles, sulci, and basal cisterns a re patent and symmetric. Small focus of encephalomalacia right parietal region. There is chronic isch emic disease of the white matter and cerebral volume loss. There is no depressed calvarial fracture. The mastoid air cells are clear. The visualized paranasal sinuses are clear. There are intracranial atherosclerotic calcifications. IMPRESSION: 1. No acute intracranial abnormality. 2. 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 Small focus of encephaloma lacia right parietal region.
[2017-01-21 16:49] LABS: ALANINE AMINOTRANSFERASE 16 U/L (12-78); ALBUMIN 3.9 g/dL (3.4-5.0); ALBUMIN/GLOBULIN RATIO 0.91; ALKALINE PHOSPHATASE 115 U/L (56-119); ANION GAP 21.4; ASPARTATE AMINO TRANSFERASE 21 U/L (15-37); BILIRUBIN,TOTAL 0.72 mg/dL (0.00-1.20); BLOOD UREA NITROGEN 24 mg/dL (7-18); BUN/CREATININE RATIO 19.35; CALCIUM 7.4 mg/dL (8.2-10.2); CARBON DIOXIDE 21 mmol/L (23-31); CHLORIDE 101 mmol/L (98-107); CREATINE KINASE 282 U/L; CREATININE 1.24 mg/dL (0.60-1.10); GLUCOSE 137 mg/dL (82-115); POTASSIUM 4.4 mmol/L (3.5-5.1); SODIUM 139 mmol/L (136-145); TOTAL PROTEIN 8.2 g/dL (5.8-8.1)
[2017-01-21 16:51] LABS: CREATINE KINASE MB 3.1 ng/ml (0.0-3.6)
[2017-01-21] MEDS ORDERED: DECADRON 4 MG/ML SDV IM STA (16:56)
[2017-01-21] MEDS ORDERED: DUONEB NEB STA (17:29)
--- NOTE | 2017-01-21 17:33 | ED.PDOC ---
General ED Provider: Dr. ALANA ESPARZA Chief Complaint: Non-specific Complaint Stated Complaint: Came with , says his ears are numb, feels like closed. says ever since he is been diagnosed with CHF , he feels like this on and off. no chest pain, has some shortness of breath. Time Seen by Physician: 17:31 Mode of Arrival: Walk-In Information Source: Patient Primary Care Provider: HIRA HERRERA Nursing and Triage Documentation Reviewed and Agree: Yes Neurological Complaint Exam - Weakness Complaint/Exam Last Known Well: ears numb Onset: Gradual Symptoms Are: Still present Timing: Constant Episodes Lasting: Days Initial Severity: Mild Current Severity: Moderate Character: Reports: Weak Aggravating: Reports: None Alleviating: Reports: None Associated Signs and Symptoms: Denies: Nausea, Vomiting, Diaphoresis, Tinnitus, Chest pain, Short of air, Palpitations, Unsteady gait, GI blood loss, Visual changes, Decreased oral intake, Change in medication, Change in diet, OTC meds, Loss of balance Related History: Similar episode Cardiac Risk Factors: Reports: Hypertension, CHF, CAD CVA Risk Factors: Reports: Hypertension, CAD Related Surgical History: Reports: None JVD Present: No Carotid Bruit Present: No Rectal Heme Positive: No Nystagmus Present: No Gag Reflex Present: Yes Meningeal Signs Positive: No Focal Weakness: Present: None Focal Sensory Loss: Present: None Gait: Normal [id number]: Normal Findings Romberg Test Positive: No Babinski Sign: Negative Right, Negative Left Differential Diagnoses: Metabolic abnormalities, Other (Tia.) Quality Indicators for AMI: EKG in 10min. Review of Systems - Review Of Systems Constitutional: Reports: Malaise, Weakness Eyes: Reports: No symptoms Ears, Nose, Mouth, Throat: Reports: No symptoms Respiratory: Reports: Short of air Cardiac: Reports: No symptoms GI: Reports: No symptoms : Reports: No symptoms Musculoskeletal: Reports: No symptoms Skin: Reports: No symptoms Neurological: Reports: No symptoms Endocrine: Reports: No symptoms Hematologic/Lymphatic: Reports: No symptoms All Other Systems: Reviewed and Negative Past Medical History - Past Medical History Previously Healthy: Yes Endocrine: Reports: DM 2, Dyslipidemia, Other (GOUT) Cardiovascular: Reports: CAD, Hypertension, CHF, A-Fib Respiratory: Reports: COPD Hematological: Reports: Anemia Gastrointestinal: Reports: GERD Genitourinary: Reports: None Neuro/Psych: Reports: Anxiety, Depression Musculoskeletal: Reports: Arthritis, Joint Pain, Gout Cancer: Reports: None - Surgical History General Surgical History: Reports: None, Cholecystectomy, Orthopedic (LEFT knee replacement, 2 broken arms), Other ( RIGHT CAROTID) - Family History Family History: Reports: None - Social History Smoking Status: Former smoker Hx Substance Use: No Alcohol Screening: None Physical Exam - Physical Exam Appearance: Well-appearing, No pain distress, Well-nourished Eyes: VISHAL, EOMI, Conjunctiva clear ENT: Ears normal, Nose normal, Oropharynx normal Respiratory: Airway patent, Breath sounds clear, Breath sounds equal, Respirations nonlabored Cardiovascular: RRR, Pulses normal, No rub, No murmur GI/: Soft, Nontender, No masses, Bowel sounds normal, No Organomegaly Musculoskeletal: Normal strength, ROM intact, No edema, No calf tenderness Skin: Warm, Dry, Normal color Neurological: Sensation intact, Motor intact, Reflexes intact, Cranial nerves intact, Alert, Oriented Psychiatric: Affect appropriate, Mood appropriate Interpretation - Radiology Interpretation Radiology Interpretation By: Radiologist Radiology Results: Negative Exam Interpreted: CT Scan Physician Notification - Case Discussed Time of Notification: 18:38 (Dr herrera) Critical Care Note - Critical Care Note Total Time (mins): 0 Course - Course Hematology/Chemistry: 01/21/17 16:00 01/21/17 16:00 Orders, Labs, Meds: Lab Review 01/21/17 01/21/17 01/21/17 16:00 16:00 16:00 WBC 11.68 H RBC 4.48 L Hgb 12.4 L Hct 37.6 L MCV 83.9 MCH 27.7 MCHC 33.0 RDW Coeff of Jennifer 16.6 H Plt Count 305 Immature Gran % (Auto) 1.2 Neut % (Auto) 55.3 Lymph % (Auto) 32.0 [place] % (Auto) 10.3 H Eos % (Auto) 0.8 Baso % (Auto) 0.4 Immature Gran # (Auto) 0.1 Neut # 6.5 Lymph # 3.7 H [place] # 1.2 Eos # 0.1 Baso # 0.1 Puncture Site O2 Saturation ABG pH ABG pCO2 ABG pO2 ABG HCO3 ABG Total CO2 ABG Base Excess Stuart Test FiO2 % Sodium 139 Potassium 4.4 Chloride 101 Carbon Dioxide 21 L Anion Gap 21.4 BUN 24 H Creatinine 1.24 H Estimated GFR (MDRD) 57.00 BUN/Creatinine Ratio 19.35 Glucose 137 H Calcium 7.4 L Total Bilirubin 0.72 AST 21 ALT 16 Alkaline Phosphatase 115 Total Creatine Kinase 282 CK-MB (CK-2) 3.1 CK-MB (CK-2) % 1.88408 Troponin I < 0.0100 B-Natriuretic Peptide 209 H Total Protein 8.2 H Albumin 3.9 Globulin 4.3 Albumin/Globulin Ratio 0.91 Digoxin 01/21/17 01/21/17 16:00 17:29 WBC RBC Hgb Hct MCV MCH MCHC RDW Coeff of Jennifer Plt Count Immature Gran % (Auto) Neut % (Auto) Lymph % (Auto) [place] % (Auto) Eos % (Auto) Baso % (Auto) Immature Gran # (Auto) Neut # Lymph # [place] # Eos # Baso # Puncture Site Rrad O2 Saturation 96.0 ABG pH 7.474 H ABG pCO2 31.5 L ABG pO2 74.0 L ABG HCO3 23.2 ABG Total CO2 24 ABG Base Excess 0 Stuart Test + FiO2 % 21.0 Sodium Potassium Chloride Carbon Dioxide Anion Gap BUN Creatinine Estimated GFR (MDRD) BUN/Creatinine Ratio Glucose Calcium Total Bilirubin AST ALT Alkaline Phosphatase Total Creatine Kinase CK-MB (CK-2) CK-MB (CK-2) % Troponin I B-Natriuretic Peptide Total Protein Albumin Globulin Albumin/Globulin Ratio Digoxin 0.45 L Orders Category Date Time Status ABG DRAW REQUEST Stat CARDIO 01/21/17 17:29 Completed EKG-(ED ONLY) Stat CARDIO 01/21/17 16:07 Completed NEBULIZER TREATMENT Stat CARDIO 01/21/17 17:29 Completed ABG Stat LAB 01/21/17 17:29 Completed B-TYPE NATRIURETIC PEPTIDE Stat LAB 01/21/17 16:00 Completed CBC W/ AUTO DIFF Stat LAB 01/21/17 16:00 Completed COMPREHENSIVE METABOLIC PANEL Stat LAB 01/21/17 16:00 Completed CREATINE KINASE Stat LAB 01/21/17 16:00 Completed DIGOXIN Stat LAB 01/21/17 16:00 Completed TROPONIN I Stat LAB 01/21/17 16:00 Completed UA [URINALYSIS C & S IF INDICATED] Stat LAB 01/21/17 18:35 Uncollected Dexamethasone 4 mg/ml Inj [Decadron 4 mg/ml Sdv] MEDS 01/21/17 16:56 Discontinued 4 mg IM ONCE STA Ipratropium/Albuterol Neb [Duoneb] MEDS 01/21/17 17:29 Discontinued 1 vial NEB ONCE STA CT HEAD W/O CONTRAST Stat RADS 01/21/17 16:07 Completed CXR [CHEST, 1V AP ONLY] Stat RADS 01/21/17 17:23 Taken Medications Discontinued Medications Generic Name Dose Route Start Last Admin Trade Name Huong MOSQUERAN Reason Stop Dose Admin Albuterol/Ipratropium 1 vial 01/21/17 17:29 01/21/17 17:55 Duoneb NEB 01/21/17 17:30 1 vial ONCE STA Administration Dexamethasone Sodium Phosphate 4 mg 01/21/17 16:56 01/21/17 17:09 Decadron 4 Mg/Ml Sdv IM 01/21/17 16:57 4 mg ONCE STA Administration Vital Signs: Temp Pulse Resp BP Pulse Ox 01/21/17 15:54 98.6 F 87 20 134/98 H 93 L Departure - Departure Time of Disposition: 18:38 Disposition: PLACED OBSERVATION Discharge Problem: Acute on chronic heart failure Qualifiers: Heart failure type: systolic Qualified Code(s): I50.23 - Acute on chronic systolic (congestive) heart failure Instructions: Heart Failure (ED) Condition: Stable Pt referred to PMD for follow-up: No Allergies/Adverse Reactions: Allergies hydrocodone [From [place]] Adverse Reaction (Verified 01/21/17 16:02) Home Medications: Ambulatory Orders Allopurinol 100 mg PO DAILY 10/10/16 Alprazolam [Xanax] 0.5 mg PO BID 10/10/16 Aspirin [Aspirin EC] 81 mg PO BEDTIME 10/10/16 Atorvastatin Calcium [Lipitor] 40 mg PO DAILY 10/10/16 Cetirizine HCl [Zyrtec] 10 mg PO DAILY 10/10/16 Digoxin 125 mcg PO DAILY 10/10/16 Furosemide [Lasix Tab] 40 mg PO QDAC 10/10/16 Hydroxyzine HCl [Atarax] 25 mg PO TID 10/10/16 Levothyroxine Sodium [Synthroid] 125 mcg PO DAILY 10/10/16 Lisinopril [Zestril] 5 mg PO DAILY 10/10/16 Metformin HCl 500 mg PO BEDTIME 10/10/16 Pantoprazole Sodium [Protonix] 40 mg PO BIDAC 10/10/16 Potassium Chloride [K-Dur] 20 meq PO DAILY 10/10/16 Rivaroxaban [Xarelto] 20 mg PO DAILY 10/10/16 Sitagliptin Phosphate [Januvia] 100 mg PO DAILY 10/10/16 Metoprolol Tartrate [Lopressor] 50 mg PO BID #60 tablet 10/12/16 Ca/D3/Mag Ox/Zinc/Heading Matcher And Assembler/Fausto/Bor [Calcium 600+D3 Plus Caplet] 1 each PO DAILY Cholecalciferol (Vitamin D3) [Vitamin D3] 1,000 unit PO DAILY 01/21/17 Diltiazem HCl [Cardizem] 60 mg PO Q12HR 01/21/17 Doxycycline Monohydrate 100 mg PO BID 01/21/17 Gabapentin [Neurontin] 100 mg PO Q8HR PRN 01/21/17 Metronidazole [Flagyl] 500 mg PO TID 01/21/17 Disposition Discussed With: Patient, Family
[2017-01-21 18:06] LABS: ABG BASE EXCESS 0 (-2.0-2.0); ABG HCO3 23.2 (22.0-26.0); ABG PCO2 31.5 mmHg (35-45); ABG PH 7.474 (7.35-7.45); ABG TCO2 24 (22.0-28.0)
[2017-01-21] MEDS ORDERED: TYLENOL PO PRN (18:39)
[2017-01-21] MEDS ORDERED: NEURONTIN PO PRN (18:41)
[2017-01-21 20:42] VITALS: BMI 29.5
[2017-01-21] MEDS ORDERED: CARDIZEM ONE (20:55)
[2017-01-21] MEDS ORDERED: DOXYCYCLINE HYCLATE ONE (20:57)
[2017-01-21] MEDS ORDERED: NON-FORMULARY MEDICATION (Doxycycline Monohydrate [Doxycycline Monohydrate] 100 MG) PO SCH (21:00)
[2017-01-21] MEDS: ATARAX PO SCH (21:03)
[2017-01-21] MEDS: LOPRESSOR PO SCH (21:03)
[2017-01-21] MEDS: XANAX PO SCH (21:03)
[2017-01-21] MEDS: GLUCOPHAGE PO SCH (21:03)
[2017-01-21] MEDS: ASPIRIN EC PO SCH (21:04)
[2017-01-21] MEDS: SODIUM CHLORIDE 1,000 ML IV SCH (21:04)
[2017-01-21] MEDS: CARDIZEM PO SCH (21:12)
[2017-01-21] MEDS: DUONEB NEB SCH (23:07)
[2017-01-22 01:50] LABS: TROPONIN I 0.012 ng/ml (0.0000-0.4000)
[2017-01-22 01:53] LABS: CREATINE KINASE MB 2.6 ng/ml (0.0-3.6)
[2017-01-22] MEDS: DUONEB NEB SCH ×4 (05:12→23:27)
[2017-01-22 05:22] LABS: BASOPHILS % (AUTO) 0.2 % (0.0-3.0); HEMATOCRIT 33.2 % (42.0-52.0); IMMATURE GRANULOCYTE % (AUTO) 0.7 % (0.0-5.0); LYMPHOCYTES # (AUTO) 0.9 K/uL (0.60-3.4); LYMPHOCYTES % (AUTO) 9.4 (10.0-50.0); MEAN CORPUSCULAR HEMOGLOBIN 27.5 pg (27.0-31.0); MEAN CORPUSCULAR HGB CONC 33.1 (31.8-35.4); MONOCYTES # (AUTO) 0.3 K/uL (0.4-2.0); MONOCYTES % (AUTO) 3.4 (0-10); NEUTROPHILS # (AUTO) 8.2 K/ul (2.0-6.9); NEUTROPHILS % (AUTO) 86.3; PLATELET COUNT 273 10^3/uL (140-440); WHITE BLOOD COUNT 9.48 K/ul (4.2-10.2)
[2017-01-22 05:33] LABS: ALBUMIN 3.3 g/dL (3.4-5.0); ALBUMIN/GLOBULIN RATIO 0.94; ANION GAP 17.7; BILIRUBIN,TOTAL 0.42 mg/dL (0.00-1.20); BUN/CREATININE RATIO 21.78; CREATININE 1.01 mg/dL (0.60-1.10); POTASSIUM 3.7 mmol/L (3.5-5.1); TOTAL PROTEIN 6.8 g/dL (5.8-8.1)
[2017-01-22] MEDS: PROTONIX PO SCH ×2 (05:37→17:54)
[2017-01-22] MEDS: LASIX TAB PO SCH (05:37)
[2017-01-22 06:04] LABS: BILIRUBIN,URINE Negative (NEGATIVE); KETONES,URINE Negative (NEGATIVE); LEUKOCYTE ESTERASE ,URINE Negative (NEGATIVE); NITRITE,URINE Negative (NEGATIVE); PH,URINE 6.5 (5-9); PROTEIN,URINE Negative (NEGATIVE); URINE, BLOOD Negative (NEGATIVE)
[2017-01-22 06:07] LABS: ADD URINE MICROSCOPIC NO
--- NOTE | 2017-01-22 07:27 | DI ---
EXAM: CHEST FRONTAL VIEW HISTORY: Cough. COMPARISON: 07/31/2016 FINDINGS: Heart size and mediastinum remain within normal limits. Lungs are free of infiltrate. No consolidation or pleural fluid. There is no pneumothorax or acute bony finding. IMPRESSION: Findings within normal limits.
[2017-01-22] MEDS ORDERED: DECADRON 4 MG/ML SDV IM STA (08:02)
[2017-01-22] MEDS: KEFLEX PO SCH ×3 (08:46→20:53)
[2017-01-22] MEDS: SYNTHROID PO SCH ×2 (08:46)
[2017-01-22] MEDS: XARELTO PO SCH (08:47)
[2017-01-22] MEDS: LOPRESSOR PO SCH ×2 (08:47→20:53)
[2017-01-22] MEDS: K-DUR PO SCH (08:47)
[2017-01-22] MEDS: ATARAX PO SCH ×3 (08:47→20:54)
[2017-01-22] MEDS: ZYLOPRIM PO SCH (08:47)
[2017-01-22] MEDS: VITAMIN D PO SCH (08:47)
[2017-01-22] MEDS: ZESTRIL PO SCH (08:48)
[2017-01-22] MEDS: ZYRTEC PO SCH (08:48)
[2017-01-22] MEDS: CARDIZEM PO SCH ×2 (08:48→20:53)
[2017-01-22] MEDS: JANUVIA PO SCH (08:48)
[2017-01-22] MEDS: LIPITOR PO SCH (08:48)
[2017-01-22] MEDS: LANOXIN PO SCH (08:48)
[2017-01-22] MEDS: XANAX PO SCH ×2 (08:57→20:53)
[2017-01-22] MEDS: CALCIUM 500 + VIT D 200 MG TABLET PO SCH (08:57)
[2017-01-22] MEDS ORDERED: NON-FORMULARY MEDICATION (Atorvastatin Calcium [Lipitor] 40 MG) PO SCH ×22 (09:00)
[2017-01-22] MEDS ORDERED: DOXYCYCLINE HYCLATE PO SCH (09:00)
[2017-01-22] MEDS ORDERED: NON-FORMULARY MEDICATION (Cholecalciferol (Vitamin D3) [Vitamin D3] 1,000 UNIT) PO SCH ×22 (09:00)
[2017-01-22] MEDS ORDERED: NON-FORMULARY MEDICATION (Rivaroxaban [Xarelto] 20 MG) PO SCH (09:00)
[2017-01-22] MEDS ORDERED: NON-FORMULARY MEDICATION (Sitagliptin Phosphate 100 MG) PO SCH (09:00)
[2017-01-22] MEDS ORDERED: NON-FORMULARY MEDICATION (Levothyroxine Sodium [Synthroid] 125 MCG) PO SCH ×22 (09:00)
[2017-01-22] MEDS ORDERED: [UNRECOGNIZED DRUG - OTHER] PO SCH (09:00)
[2017-01-22 10:11] LABS: CREATINE KINASE 296 U/L
[2017-01-22 10:16] LABS: CREATINE KINASE MB 3.1 ng/ml (0.0-3.6)
--- NOTE | 2017-01-22 10:39 | PN ---
DATE OF SERVICE: 01/21/17 ADMIT NOTE SUBJECTIVE: Herman came to the Emergency Room with complaint of bilateral ear numbness and nonspecific complaint. While he was coming he was on the phone and something made him very angry. He was mildly short of breath according to him. He denied any exertional chest discomfort and there was no symptoms of CHF. REVIEW OF SYSTEMS: CONSTITUTIONAL: No night sweats. No fatigue, malaise, lethargy. No fever or chills. HEENT: Eyes: No visual changes. No eye pain. No eye discharge. ENT: No runny nose. No epistaxis. No sinus pain. No sore throat. No odynophagia. No congestion. RESPIRATORY: No cough, no congestion. No hemoptysis. Mild shortness of breath. CARDIOVASCULAR: No angina symptoms. No CHF symptoms. No atypical chest pain for CAD. No palpitations. No orthopnea. GASTROINTESTINAL: No abdominal pain. No nausea or vomiting. No diarrhea or constipation. No hematemesis. No hematochezia. GENITOURINARY: No urgency. No frequency. No dysuria. No hematuria. No obstructive symptoms. No discharge. No pain. No significant abnormal bleeding. MUSCULOSKELETAL: No musculoskeletal pain; no joint swelling. NEUROLOGICAL: No headache. No neck pain. No syncope. No seizures. No dizziness. PSYCHIATRIC: Not anxious. No depression. No suicidal thoughts. No homicidal thoughts. SKIN: No rash. No lesions. No wounds. ENDOCRINE: No unexplained weight loss. No weight gain. HEMATOLOGIC/LYMPHATIC: No anemia. No purpura. No petechiae. No prolonged or excessive bleeding. No palpable lymph nodes. PHYSICAL EXAMINATION: GENERAL: The patient is oriented to time, place and person. HEENT: Head normocephalic, atraumatic. Eyes: Extraocular muscles are intact. Pupils are equal, round and reactive to light and accommodation. Ears: No lesions. Nose appeared normal. Throat: No exudate or erythema. NECK: Supple. No JVD, no carotid bruit. No lymphadenopathy or thyromegaly. LUNGS: Clear to auscultation. Percussion note normal. Chest symmetrical. HEART: S1, S2, no S3. No murmurs. No cyanosis or clubbing. No ascites. Pulses: Dorsalis pedis and posterior tibial pulses +1 to +2 both sides. ABDOMEN: Soft. Nontender. Bowel sounds active. No CVA tenderness. No mass felt. EXTREMITIES: No edema. Full range of motion of all extremities, equal. NEUROLOGIC: No focal deficit. Cranial nerves II through XII are grossly intact. No headache, no double vision or headache. SKIN: Not dry. Intact. Turgor - normal. LYMPHATIC: No palpable lymph nodes/no lymphedema. MUSCULOSKELETAL: Normal joints with no swelling. Muscle tone is normal. LABS: ABG, CMP and CBC all within acceptable range. BNP was close to 200. PLAN: 1. The patient wanted to come home. Was admitted to observation 2. Telemetry 3. Continuation of all his medications. CONDITION: Stable. TIME SPENT: More than 30 minutes. Plan and coordination of the patient's care discussed in the presence of nurse. LAYLA
--- NOTE | 2017-01-22 11:03 | PCM.PROG ---
Attending Provider: ATTENDING PROVIDER: Dr. HIRA PARKER This patient is seen with Aurelia Shirley, Nurse Practitioner. DATE OF SERVICE: 01/22/17 SUBJECTIVE: This 77 year old WHITE/ M was hospitalized 01/21/17. The patient is sitting on the side of the bed, is alert and in no distress. No facial tingling today. REVIEW OF SYSTEMS: CONSTITUTIONAL: No night sweats. No fatigue, malaise, lethargy. No fever or chills. HEENT: Eyes: No visual changes. No eye pain. No eye discharge. ENT: No runny nose. No epistaxis. No sinus pain. No odynophagia. No congestion. RESPIRATORY: Cough. No congestion. No hemoptysis. No shortness of breath. CARDIOVASCULAR: No angina symptoms. No CHF symptoms. No atypical chest pain for CAD. No palpitations. No orthopnea.. GASTROINTESTINAL: No abdominal pain. No nausea or vomiting. No diarrhea or constipation. No hematemesis. No hematochezia. GENITOURINARY: No urgency. No frequency. No dysuria. No hematuria. No obstructive symptoms. No discharge. No pain. No significant abnormal bleeding. MUSCULOSKELETAL: No musculoskeletal pain; no joint swelling. NEUROLOGICAL: Awake, alert, oriented to time, place and person. No headache. No neck pain. No syncope. No seizures. No dizziness. PSYCHIATRIC: Not anxious. No depression. No suicidal thoughts. No homicidal thoughts. SKIN: No rash. No lesions. No wounds. ENDOCRINE: No unexplained weight loss. No weight gain. HEMATOLOGIC/LYMPHATIC: No anemia. No purpura. No petechiae. No prolonged or excessive bleeding. No palpable lymph nodes. PHYSICAL EXAMINATION: GENERAL: The patient is awake, alert and oriented, sitting in bed in no distress. VITAL SIGNS: Temperature 97.8 F, Pulse 74, Respiratory Rate 16, BP 121/76, Pulse Ox 91% HEENT: Head normocephalic, atraumatic. Eyes: Extraocular muscles are intact. Pupils are equal, round and reactive to light and accommodation. Ears: No lesions. Nose appeared normal. Throat: No exudate or erythema. NECK: Supple. No JVD, no carotid bruit. No lymphadenopathy or thyromegaly. LUNGS: Diminished breath sounds bilaterally. Clear to auscultation. Percussion note normal. Chest symmetrical. HEART: Irregular heart rate. S1, S2, no S3. No murmurs. No cyanosis or clubbing. No ascites. Pulses: Dorsalis pedis and posterior tibial pulses +1 to +2 both sides. ABDOMEN: Soft. Non-tender. Bowel sounds active. No CVA tenderness. No mass felt. EXTREMITIES: No edema. Full range of motion of all extremities, equal. NEUROLOGIC: No focal deficit. Cranial nerves II through XII are grossly intact. No headache, no double vision or headache. SKIN: Not dry. Intact. Turgor-normal. LYMPHATIC: No palpable lymph nodes/no lymphedema. MUSCULOSKELETAL: Normal joints with no swelling. Muscle tone is normal. LAB REVIEW: 01/22/17 04:37 01/22/17 04:37 01/22/17 05:30: Urine Color Yellow, Urine Clarity Clear, Urine pH 6.5, Ur Specific [place] 1.010, Urine Protein Negative, Urine Glucose (UA) 2+, Urine Ketones Negative, Urine Blood Negative, Urine Nitrite Negative, Urine Bilirubin Negative, Urine Urobilinogen 0.2, Ur Leukocyte Esterase Negative 01/22/17 04:37: Sodium 139, Potassium 3.7, Chloride 103, Carbon Dioxide 22 L, Anion Gap 17.7, BUN 22 H, Creatinine 1.01, Estimated GFR (MDRD) 72.00, BUN/ Creatinine Ratio 21.78, Glucose 255 H D, Calcium 7.0 L, Total Bilirubin 0.42, AST 14 L, ALT 15, Alkaline Phosphatase 104, Total Protein 6.8, Albumin 3.3 L, Globulin 3.5, Albumin/Globulin Ratio 0.94 01/22/17 04:37: WBC 9.48, RBC 4.00 L, Hgb 11.0 L, Hct 33.2 L, MCV 83.0, MCH 27.5 , MCHC 33.1, RDW Coeff of Jennifer 16.0 H, Plt Count 273, Immature Gran % (Auto) 0.7 , Neut % (Auto) 86.3, Lymph % (Auto) 9.4 L, [place] % (Auto) 3.4, Eos % (Auto) 0.0 , Baso % (Auto) 0.2, Immature Gran # (Auto) 0.1, Neut # 8.2 H, Lymph # 0.9, [place] # 0.3 L, Eos # 0.0, Baso # 0.0 01/22/17 01:12: Total Creatine Kinase 273, CK-MB (CK-2) 2.6, CK-MB (CK-2) % 0.57926, Troponin I 0.0120 ASSESSMENT: 1. Acute bronchitis 2. COPD 3. Congestive heart failure 4. Atrial fibrillation PLAN: 1. Check to see when patient had last carotid scan 2. Check to see when last echo was done 3. 1 cc Decadron today 4. Hold Doxycycline 5. Keflex 500 mg t.i.d. Plan and coordination of the patient's care discussed in the presence of [place] Superintendent and nurse. CONDITION: Stable SCRIBED BY: KE HOOD Label Sewer scribed while in presence of service performed by Dr. Parker/Aurelia Shirley APRN on 01/22/17 ([id number])
[2017-01-22] MEDS: GLUCOPHAGE PO SCH (20:53)
[2017-01-22] MEDS: ASPIRIN EC PO SCH (20:53)
[2017-01-23 04:51] LABS: BASOPHILS % (AUTO) 0.2 % (0.0-3.0); EOSINOPHILS % (AUTO) 0.1 % (0.0-7.0); HEMATOCRIT 32.6 % (42.0-52.0); HEMOGLOBIN 10.8 g/dl (14.0-18.0); IMMATURE GRANULOCYTE % (AUTO) 0.8 % (0.0-5.0); LYMPHOCYTES # (AUTO) 1.2 K/uL (0.60-3.4); LYMPHOCYTES % (AUTO) 8.7 (10.0-50.0); MEAN CORPUSCULAR HEMOGLOBIN 27.9 pg (27.0-31.0); MEAN CORPUSCULAR HGB CONC 33.1 (31.8-35.4); MEAN CORPUSCULAR VOLUME 84.2 fl (80.0-94.0); MONOCYTES # (AUTO) 1.1 K/uL (0.4-2.0); MONOCYTES % (AUTO) 7.8 (0-10); NEUTROPHILS # (AUTO) 11.3 K/ul (2.0-6.9); NEUTROPHILS % (AUTO) 82.4; PLATELET COUNT 273 10^3/uL (140-440); RED BLOOD COUNT 3.87 10^6/ul (4.70-6.10); WHITE BLOOD COUNT 13.71 K/ul (4.2-10.2)
[2017-01-23] MEDS: DUONEB NEB SCH ×2 (05:01→11:17)
[2017-01-23 05:15] LABS: ALBUMIN 3.4 g/dL (3.4-5.0); ALBUMIN/GLOBULIN RATIO 1.03; ANION GAP 18.7; BILIRUBIN,TOTAL 0.23 mg/dL (0.00-1.20); CALCIUM 7.5 mg/dL (8.2-10.2); POTASSIUM 3.7 mmol/L (3.5-5.1); TOTAL PROTEIN 6.7 g/dL (5.8-8.1)
[2017-01-23] MEDS: SYNTHROID PO SCH ×2 (05:52)
[2017-01-23] MEDS: LASIX TAB PO SCH (05:52)
[2017-01-23] MEDS: PROTONIX PO SCH (05:52)
[2017-01-23] MEDS: KEFLEX PO SCH (05:52)
[2017-01-23] MEDS: SODIUM CHLORIDE 1,000 ML IV SCH (05:53)
[2017-01-23] MEDS ORDERED: DECADRON 4 MG/ML SDV IM STA (07:57)
--- NOTE | 2017-01-23 09:22 | CM.DICTOOL ---
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 MARVIN LAST VITALS Temp Pulse Resp BP Pulse Ox 97.5 F L 89 17 136/83 96 01/23/17 05:40 01/23/17 05:40 01/23/17 05:40 01/23/17 05:40 01/23/17 05:40 ACTIVE MEDICATIONS Allopurinol (Zyloprim) 100 mg PO DAILY [facility] Last Admin: 01/22/17 08:47 Dose: 100 mg Alprazolam (Xanax) 0.5 mg PO BID [facility] Last Admin: 01/22/17 20:53 Dose: 0.5 mg Aspirin (Aspirin Ec) 81 mg PO BEDTIME [facility] Last Admin: 01/22/17 20:53 Dose: 81 mg Atorvastatin Calcium (Lipitor) 40 mg PO DAILY [facility] Last Admin: 01/22/17 08:48 Dose: 40 mg Calcium/Vitamin D (Calcium 500 + Vit D 200 Mg Tablet) 1 each PO DAILY [facility] Last Admin: 01/22/17 08:57 Dose: 1 each Cetirizine HCl (Zyrtec) 10 mg PO DAILY [facility] Last Admin: 01/22/17 08:48 Dose: 10 mg Cholecalciferol (Vitamin D) 1,000 unit PO DAILY [facility] Last Admin: 01/22/17 08:47 Dose: 1,000 unit Digoxin (Lanoxin) 125 mcg PO DAILY [facility] Last Admin: 01/22/17 08:48 Dose: 125 mcg Diltiazem HCl (Cardizem) 60 mg PO Q12HR [facility] Last Admin: 01/22/17 20:53 Dose: 60 mg Doxycycline Hyclate (Doxycycline Hyclate) 100 mg PO BID [facility] Furosemide (Lasix Tab) 40 mg PO QDAC [facility] Last Admin: 01/23/17 05:52 Dose: 40 mg Gabapentin (Neurontin) 100 mg PO Q8HR PRN PRN Reason: Joint Pain Hydroxyzine HCl (Atarax) 25 mg PO TID [facility] Last Admin: 01/22/17 20:54 Dose: 25 mg Levothyroxine Sodium (Synthroid) 125 mcg PO QDAC [facility] Last Admin: 01/23/17 05:52 Dose: 125 mcg Lisinopril (Zestril) 5 mg PO DAILY [facility] Last Admin: 01/22/17 08:48 Dose: 5 mg Metformin HCl (Glucophage) 500 mg PO BEDTIME [facility] Last Admin: 01/22/17 20:53 Dose: 500 mg Metoprolol Tartrate (Lopressor) 50 mg PO BID [facility] Last Admin: 01/22/17 20:53 Dose: 50 mg Pantoprazole Sodium (Protonix) 40 mg PO BIDAC [facility] Last Admin: 01/23/17 05:52 Dose: 40 mg Potassium Chloride (K-Dur) 20 meq PO DAILY [facility] Last Admin: 01/22/17 08:47 Dose: 20 meq Rivaroxaban (Xarelto) 20 mg PO DAILY [facility] Last Admin: 01/22/17 08:47 Dose: 20 mg Sitagliptin Phosphate (Januvia) 100 mg PO DAILY [facility] Last Admin: 01/22/17 08:48 Dose: 100 mg ALLERGIES hydrocodone [From [place]] Adverse Reaction (Verified 01/21/17 16:02) NEW PRESCRIPTIONS: PHENERGAN WITH CODEINE 6.25/10/5 TAKE 5 ML BY MOUTH EVERY 6 HOURS NEEDED-- COUGH KEFLEX 500 MG, TAKE ONE CAPSULE BY MOUTH EVERY 8 HOURS FOR 7 DAYS PREDNISONE 10 MG, TAKE ONE TABLET BY MOUTH TWICE DAILY WITH FOOD FOR 5 DAYS SMOKING: FORMER SMOKER DISEASE SPECIFIC EDUCATION: CONGESTIVE HEART FAILURE BRONCHITIS HOME MEDICATIONS NEW PRESCRIPTIONS FOLLOW UP LAB REVIEW: 01/23/17 04:45 01/23/17 04:45 01/23/17 04:45: Sodium 143, Potassium 3.7, Chloride 105, Carbon Dioxide 23, Anion Gap 18.7, BUN 22 H, Creatinine 1.00, Estimated GFR (MDRD) 73.00, BUN/ Creatinine Ratio 22.00, Glucose 223 H, Calcium 7.5 L, Total Bilirubin 0.23, AST 11 L, ALT 13, Alkaline Phosphatase 106, Total Protein 6.7, Albumin 3.4, Globulin 3.3, Albumin/Globulin Ratio 1.03 01/23/17 04:45: WBC 13.71 H, RBC 3.87 L, Hgb 10.8 L, Hct 32.6 L, MCV 84.2, MCH 27.9, MCHC 33.1, RDW Coeff of Jennifer 16.5 H, Plt Count 273, Immature Gran % (Auto) 0.8, Neut % (Auto) 82.4, Lymph % (Auto) 8.7 L, [place] % (Auto) 7.8, Eos % (Auto) 0.1, Baso % (Auto) 0.2, Immature Gran # (Auto) 0.1, Neut # 11.3 H, Lymph # 1.2, [place] # 1.1, Eos # 0.0, Baso # 0.0 01/22/17 09:18: Total Creatine Kinase 296, CK-MB (CK-2) 3.1, CK-MB (CK-2) % 1.85860, Troponin I < 0.0100 PLAN: DISCHARGE HOME TODAY RETURN TO SEE DR. WIGGINS IN HIS OFFICE ON 01/30/17 AT 3:15 P.M. RESUME YOUR HOME MEDICATIONS PER LIST PROVIDED BY THE NURSING STAFF NEW PRESCRIPTIONS PHENERGAN WITH CODEINE 6./11/30 TAKE 5 ML BY MOUTH EVERY 6 HOURS NEEDED-- COUGH KEFLEX 500 MG, TAKE ONE CAPSULE BY MOUTH EVERY 8 HOURS FOR 7 DAYS PREDNISONE 10 MG, TAKE ONE TABLET BY MOUTH TWICE DAILY WITH FOOD FOR 5 DAYS ACTIVITY GET PLENTY OF REST AT HOME. GRADUALLY INCREASE YOUR ACTIVITY LEVEL ACCORDING TO YOUR TOLERATION DIET HEALTHY HEART SUMMARY THE PATIENT IS ALERT AND ORIENTED X3. HE CURRENTLY RESIDES AT HOME WITH HIS SPOUSE. SHE AND HIS SON ARE SUPPORTIVE OF MR. STACK'S NEEDS WHEN NECESSARY. HOWEVER, HE IS INDEPENDENT WITH ADL'S. HE HAS EXISTING OXYGEN AT HOME FOR USE. HE DOES NOT REQUIRE ASSISTANCE WITH AMBULATING, HOMEMAKING OR HOME HEALTH CARE. HE DESIRES TO RETURN TO HIS HOME AT DISCHARGE. CURRENT CODE STATUS: FULL CODE ALICIA HOGAN APRN HIRA PARKER M.D.
[2017-01-23] MEDS: LANOXIN PO SCH (09:33)
[2017-01-23] MEDS: JANUVIA PO SCH (09:33)
[2017-01-23] MEDS: LIPITOR PO SCH (09:33)
[2017-01-23] MEDS: XARELTO PO SCH (09:33)
[2017-01-23] MEDS: LOPRESSOR PO SCH (09:33)
[2017-01-23] MEDS: K-DUR PO SCH (09:33)
[2017-01-23] MEDS: CARDIZEM PO SCH (09:33)
[2017-01-23] MEDS: ZESTRIL PO SCH (09:34)
[2017-01-23] MEDS: ZYLOPRIM PO SCH (09:34)
[2017-01-23] MEDS: CALCIUM 500 + VIT D 200 MG TABLET PO SCH (09:34)
[2017-01-23] MEDS: ZYRTEC PO SCH (09:34)
[2017-01-23] MEDS: VITAMIN D PO SCH (09:34)
[2017-01-23] MEDS: ATARAX PO SCH (09:34)
[2017-01-23] MEDS: XANAX PO SCH (09:40)
--- NOTE | 2017-01-23 10:31 | PCM.PROG ---
Attending Provider: ATTENDING PROVIDER: Dr. HIRA PARKER This patient is seen with Aurelia Shirley, Nurse Practitioner. DATE OF SERVICE: 01/23/17 SUBJECTIVE: This 77 year old WHITE/ M was hospitalized 01/21/17. The patient is sitting in bed, alert. He stated he did not sleep much and is ready to go home. REVIEW OF SYSTEMS: CONSTITUTIONAL: No night sweats. No fatigue, malaise, lethargy. No fever or chills. HEENT: Eyes: No visual changes. No eye pain. No eye discharge. ENT: No runny nose. No epistaxis. No sinus pain. No odynophagia. No congestion. RESPIRATORY: Cough with clear sputum. No congestion. No hemoptysis. No shortness of breath. CARDIOVASCULAR: No angina symptoms. No CHF symptoms. No atypical chest pain for CAD. No palpitations. No orthopnea.. GASTROINTESTINAL: No abdominal pain. No nausea or vomiting. No diarrhea or constipation. No hematemesis. No hematochezia. GENITOURINARY: No urgency. No frequency. No dysuria. No hematuria. No obstructive symptoms. No discharge. No pain. No significant abnormal bleeding. MUSCULOSKELETAL: No musculoskeletal pain; no joint swelling. NEUROLOGICAL: Awake, alert, oriented to time, place and person. No headache. No neck pain. No syncope. No seizures. No dizziness. PSYCHIATRIC: Not anxious. No depression. No suicidal thoughts. No homicidal thoughts. SKIN: No rash. No lesions. No wounds. ENDOCRINE: No unexplained weight loss. No weight gain. HEMATOLOGIC/LYMPHATIC: No anemia. No purpura. No petechiae. No prolonged or excessive bleeding. No palpable lymph nodes. PHYSICAL EXAMINATION: GENERAL: The patient is awake, alert and oriented, lying/sitting in bed in no distress. VITAL SIGNS: Temperature 97.5 F, Pulse 89, Respiratory Rate 17, BP 136/83, Pulse Ox 96% HEENT: Head normocephalic, atraumatic. Eyes: Extraocular muscles are intact. Pupils are equal, round and reactive to light and accommodation. Ears: No lesions. Nose appeared normal. Throat: No exudate or erythema. NECK: Supple. No JVD, no carotid bruit. No lymphadenopathy or thyromegaly. LUNGS: Diminished breath sounds, equal and clear. Percussion note normal. Chest symmetrical. HEART: Irregular heart rate. S1, S2, no S3. No murmurs. No cyanosis or clubbing. No ascites. Pulses: Dorsalis pedis and posterior tibial pulses +1 to +2 both sides. ABDOMEN: Soft. Non-tender. Bowel sounds active. No CVA tenderness. No mass felt. EXTREMITIES: No edema. Full range of motion of all extremities, equal. NEUROLOGIC: No focal deficit. Cranial nerves II through XII are grossly intact. No headache, no double vision or headache. SKIN: Not dry. Intact. Turgor-normal. LYMPHATIC: No palpable lymph nodes/no lymphedema. MUSCULOSKELETAL: Normal joints with no swelling. Muscle tone is normal. LAB REVIEW: 01/23/17 04:45 01/23/17 04:45 01/23/17 04:45: Sodium 143, Potassium 3.7, Chloride 105, Carbon Dioxide 23, Anion Gap 18.7, BUN 22 H, Creatinine 1.00, Estimated GFR (MDRD) 73.00, BUN/ Creatinine Ratio 22.00, Glucose 223 H, Calcium 7.5 L, Total Bilirubin 0.23, AST 11 L, ALT 13, Alkaline Phosphatase 106, Total Protein 6.7, Albumin 3.4, Globulin 3.3, Albumin/Globulin Ratio 1.03 01/23/17 04:45: WBC 13.71 H, RBC 3.87 L, Hgb 10.8 L, Hct 32.6 L, MCV 84.2, MCH 27.9, MCHC 33.1, RDW Coeff of Jennifer 16.5 H, Plt Count 273, Immature Gran % (Auto) 0.8, Neut % (Auto) 82.4, Lymph % (Auto) 8.7 L, [place] % (Auto) 7.8, Eos % (Auto) 0.1, Baso % (Auto) 0.2, Immature Gran # (Auto) 0.1, Neut # 11.3 H, Lymph # 1.2, [place] # 1.1, Eos # 0.0, Baso # 0.0 01/22/17 09:18: Total Creatine Kinase 296, CK-MB (CK-2) 3.1, CK-MB (CK-2) % 1.27129, Troponin I < 0.0100 ASSESSMENT: 1. Acute bronchitis 2. COPD 3. Congestive heart failure 4. Atrial fibrillation PLAN: 1. 1 cc Decadron before discharge 2. Keflex 500 mg t.i.d. for 7 days 3. Prednisone 10 mg b.i.d. 4. Discharge home today 5. Will see in office next week with Dr. Parker/Aurelia Shirley APRN 6. D/C IV fluids 7. D/C telemetry Plan and coordination of the patient's care discussed in the presence of [employer] and nurse. CONDITION: Stable SCRIBED BY: KE HOOD Operator Helper scribed while in presence of service performed by Dr. Parker/Aurelia Shirley APRN on 01/23/17 ([id number])
[2017-01-23 11:18] VITALS: BP 110/66; TEMP 97.4
--- NOTE | 2017-01-23 14:37 | PN ---
DATE OF SERVICE: 01/23/17 SUBJECTIVE: The patient was hospitalized with acute bronchitis/sinusitis. The patient has nonspecific complaints. He was ruled out to have any neurological problems. CT scan was normal. The patient is up and about feeling a lot better. He has been coughing dry cough. The patient is going to be discharged on antibiotics and steroids. His cardiovascular status is stable. The patient was seen and examined with Nurse Practitioner. TIME SPENT: More than 30 minutes. Plan and coordination of the patient's care discussed in the presence of nurse. LAYLA
--- NOTE | 2017-01-23 14:38 | PN ---
The patient admitted on 01/21/17: Level 5 01/22/17: Intermediate 01/23/17: D as in discharge MTDD
--- NOTE | 2017-01-23 14:49 | HP ---
DATE OF SERVICE: 01/22/17 (ADMITTED 01/21) HISTORY OF PRESENT ILLNESS: This is a 77-year-old white male who came into the emergency room complaining of his ears feeling numb, his face tingling. He has been short of breath off and on but has not had any chest pain. He does have a history of atrial fibrillation and CHF. PAST MEDICAL HISTORY: Degenerative joint disease sees Dr. Valerio every 1 to 2 months for pain management Right sciatica History of CHF Atrial fibrillation on Xarelto Restless leg disease Diabetes mellitus Type 2 Anxiety disorder Atherosclerotic heart disease Dyslipidemia Obesity History of gout PAST SURGICAL HISTORY: Right carotid endarterectomy 09/2015 Left knee replacement Cholecystectomy REVIEW OF SYSTEMS: CONSTITUTIONAL: Positive for malaise and weakness. No night sweats. No fever or chills. HEENT: Eyes: No visual changes. No eye pain. No eye redness. No eye discharge. ENT: No runny nose. No epistaxis. No sinus pain. No sore throat. No odynophagia. No ear pain. No congestion. RESPIRATORY: Mild cough, no congestion. No hemoptysis. Mild shortness of breath in no distress. CARDIOVASCULAR: No angina symptoms. No CHF symptoms. No atypical chest pain for CAD. No palpitations. No orthopnea. No leg edema. GASTROINTESTINAL: No abdominal pain. No nausea or vomiting. No diarrhea or constipation. No hematemesis. No hematochezia. GENITOURINARY: No urgency. No frequency. No dysuria. No hematuria. No obstructive symptoms. No discharge. No pain. No significant abnormal bleeding. MUSCULOSKELETAL: No joint swelling or redness. Positive for chronic back pain. NEUROLOGICAL: Positive for facial tingling and numbness. No headache. No neck pain. No syncope. No seizures. No dizziness. PSYCHIATRIC: Not anxious. No depression. No suicidal thoughts. No homicidal thoughts. SKIN: Rash on back currently taking Doxycycline from Dr. Zuñiga. No lesions. No wounds. ENDOCRINE: No unexplained weight loss. No weight gain. HEMATOLOGIC/LYMPHATIC: No anemia. No purpura. No petechiae. No prolonged or excessive bleeding. No palpable lymph nodes. PERSONAL/FAMILY/SOCIAL HISTORY: The patient is a nonsmoker, denies any alcohol or illicit drug use, lives with his [place]. He is retired. MEDICATIONS: Allopurinol 100 mg daily Xanax 0.4 b.i.d. Aspirin 81 mg daily Lipitor 40 mg daily Zyrtec 10 mg daily Digoxin 125 mcg daily Lasix 40 mg daily Atarax 25 mg p.o. t.i.d. p.r.n. Synthroid 125 mcg daily Zestril 5 mg daily Metformin 500 mg at bedtime Protonix 40 mg b.i.d. Potassium 20 mEq daily Xarelto 20 mg daily Januvia 100 mg daily Lopressor 50 mg b.i.d. Cardizem 60 mg b.i.d. Doxycycline for rash 100 mg b.i.d. Neurontin 100 mg q.8hr Flagyl 500 mg t.i.d. for rash ALLERGIES: HYDROCODONE PHYSICAL EXAMINATION: HEENT: Head normocephalic, atraumatic. Eyes: Extraocular muscles are intact. Pupils are equal, round and reactive to light and accommodation. Ears: No lesions. Nose appeared normal. Throat: No exudate or erythema. NECK: Supple. No JVD, no carotid bruit. No lymphadenopathy or thyromegaly. LUNGS: Clear to auscultation. Percussion note normal. Chest symmetrical. HEART: Regular rate and rhythm. S1, S2, no S3. No murmurs, clicks or rubs. No cyanosis or clubbing. No ascites. Pulses: Dorsalis pedis and posterior tibial pulses +1 to +2 both sides. ABDOMEN: Soft. Nontender. Bowel sounds active times four quadrants. No CVA tenderness. No hepatosplenomegaly. EXTREMITIES: No edema. Full range of motion of all extremities, equal. NEUROLOGIC: No focal deficit. Cranial nerves II through XII are grossly intact. No headache, no double vision or headache. SKIN: [place], warm and dry. Intact. Turgor - normal. LYMPHATIC: No palpable lymph nodes/no lymphedema. MUSCULOSKELETAL: No edema. No calf tenderness. Normal joints with no swelling. Muscle tone is normal. Negative Desi's sign. LABS: White count 11.68, hemoglobin 12.4, hematocrit 37.6, platelets 305. Sodium 139, potassium 4.4, chloride 101, BUN 24, creatinine 1.24, calcium 7.4, AST 21, ALT 16, alkaline phosphatase 115, total CK 282. Troponin less than 0.01, BNP 209, total protein 8.2. ABGs 02 saturation 96, pH 7.474, pc02 31.5, p02 74, bicarb 23.2, total c02 24, base excess of 0. FI02 of 21%. Digoxin 0.45. CT scan showed normal pulmonary changes, cardiomegaly. ASSESSMENT: 1. POSSIBLE ACUTE ON CHRONIC HEART FAILURE 2. COPD WITH ACUTE BRONCHITIS 3. HISTORY OF ATRIAL FIBRILLATION 4. CORONARY ARTERY DISEASE 5. DYSLIPIDEMIA PLAN: 1. Will admit 2. Continue home medications 3. NS at 30 cc/hr 4. Continue Lasix 5. Routine telemetry 6. CBC, CMP daily 7. Pulse ox 8. Oxygen as needed 9. Chest x-ray TIME SPENT: More than 70 minutes. MTDD
--- NOTE | 2017-01-23 15:23 | PN ---
DATE OF SERVICE: 01/22/17 SUBJECTIVE: 77 year old white male hospitalized with possibility of upper respiratory tract infection with nonspecific complaints. The patient's cardiovascular status seems to be stable. That was what he was worried about. REVIEW OF SYSTEMS: CONSTITUTIONAL: No night sweats. No fatigue, malaise, lethargy. No fever or chills. HEENT: Eyes: No visual changes. No eye pain. No eye discharge. ENT: No runny nose. No epistaxis. No sinus pain. No sore throat. No odynophagia. No congestion. RESPIRATORY: No cough, no congestion. No hemoptysis. No shortness of breath. CARDIOVASCULAR: No angina symptoms. No CHF symptoms. No atypical chest pain for CAD. No palpitations. No orthopnea. GASTROINTESTINAL: No abdominal pain. No nausea or vomiting. No diarrhea or constipation. No hematemesis. No hematochezia. GENITOURINARY: No urgency. No frequency. No dysuria. No hematuria. No obstructive symptoms. No discharge. No pain. No significant abnormal bleeding. MUSCULOSKELETAL: No musculoskeletal pain; no joint swelling. NEUROLOGICAL: No headache. No neck pain. No syncope. No seizures. No dizziness. PSYCHIATRIC: Not anxious. No depression. No suicidal thoughts. No homicidal thoughts. SKIN: No rash. No lesions. No wounds. ENDOCRINE: No unexplained weight loss. No weight gain. HEMATOLOGIC/LYMPHATIC: No anemia. No purpura. No petechiae. No prolonged or excessive bleeding. No palpable lymph nodes. PHYSICAL EXAMINATION: VITAL SIGNS: Temperature 97.8, pulse 74, respiratory rate 16, blood pressure 120 /76, oxygen saturation 91. HEENT: Head normocephalic, atraumatic. Eyes: Extraocular muscles are intact. Pupils are equal, round and reactive to light and accommodation. Ears: No lesions. Nose appeared normal. Throat: No exudate or erythema. NECK: Supple. No JVD, no carotid bruit. No lymphadenopathy or thyromegaly. LUNGS: Clear to auscultation. Percussion note normal. Chest symmetrical. HEART: S1, S2, no S3. No murmurs. No cyanosis or clubbing. No ascites. Pulses: Dorsalis pedis and posterior tibial pulses +1 to +2 both sides. ABDOMEN: Soft. Nontender. Bowel sounds active. No CVA tenderness. No mass felt. EXTREMITIES: No edema. Full range of motion of all extremities, equal. NEUROLOGIC: No focal deficit. Cranial nerves II through XII are grossly intact. No headache, no double vision or headache. SKIN: Not dry. Intact. Turgor - normal. LYMPHATIC: No palpable lymph nodes/no lymphedema. MUSCULOSKELETAL: Normal joints with no swelling. Muscle tone is normal. ASSESSMENT: 1. Bronchitis/sinusitis type of clinically picture seems to be resolving. 2. Cardiovascular status stable. CONDITION: Stable. TIME SPENT: More than 30 minutes. Plan and coordination of the patient's care discussed in the presence of nurse. LAYLA
--- NOTE | 2017-01-25 10:49 | DS ---
DATE OF SERVICE: 01/23/17 FINAL DIAGNOSIS: 1. ACUTE ON CHRONIC CHF 2. ACUTE BRONCHITIS 3. COPD 4. LVEF 25%, ECHO 10/12/16 5. ATRIAL FIBRILLATION ON XARELTO 6. CAD 7. 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 HYPERTENSION 9. DYSLIPIDEMIA 10. COPD 11. DIABETES MELLITUS, TYPE 2 12. HYPOTHYROIDISM 13. GOUTY 14. CHRONIC BACK PAIN/SCIATICA 15. DEGENERATIVE DISC DISEASE - LUMBAR 16. GERD 17. ANXIETY/DEPRESSION 18. ARTHRITIS 19. LEFT FOREARM FRACTURE AND PINNING 20. TOTAL LEFT KNEE ARTHROPLASTY 21. CHOLECYSTECTOMY 22. RIGHT CAROTID ENDARTERECTOMY, DR. MARVIN DISCHARGE INSTRUCTIONS: Followup appointment: Return to see Dr. Ferguson in his office on 01/30/17 at 3:15 p.m. Resume your home medications as per list provided by nursing staff. MEDICATIONS AT DISCHARGE: Allopurinol 100 mg p.o. daily SANDIE Xanax 0.5 mg p.o. b.i.d. SANDIE Aspirin 81 mg p.o. bedtime SANDIE Lipitor 40 mg p.o. daily [facility] Calcium/Vitamin D one each p.o. daily SANDIE Zyrtec 10 mg p.o. daily SANDIE Vitamin D 1000 unit p.o. daily SANDIE Lanoxin 325 mcg p.o. daily SANDIE Cardizem 60 mg p.o. q.12hr SANDIE Doxycycline 100 mg p.o. b.i.d. SANDIE Lasix 40 mg p.o. q.d a.c. SNADIE Neurontin 100 mg p.o. q.8hr p.r.n. Atarax 25 mg p.o. t.i.d. SANDIE Synthroid 125 mcg p.o. q.d a.c. SANDIE Zestril 5 mg p.o. daily SANDIE Glucophage 500 mg p.o. bedtime SANDIE Lopressor 50 mg p.o. b.i.d. SANDIE Protonix 40 mg p.o. b.i.d. a.c. SANDIE K-Dur 20 mEq p.o. daily SANDIE Xarelto 20 mg p.o. daily SANDIE Januvia 100 mg p.o. daily [facility] NEW PRESCRIPTIONS: Phenergan with Codeine 6.25/10/5 take 5 mL by mouth every 6 hours as needed - cough Keflex 500 mg take one capsule by mouth every 8 hours for 7 days Prednisone 10 mg take one tablet by mouth twice daily with food for 5 days DIET INSTRUCTIONS: Healthy Heart ACTIVITY: Get plenty of rest at home. Gradually increase your activity level according to your toleration. SMOKING: Former smoker DISEASE SPECIFIC EDUCATION: Congestive heart failure Bronchitis Home medications New prescriptions Follow up HOSPITAL COURSE: This 77-year-old white male presented to the emergency room. He had been experiencing a worsening cough for the past couple of days, mild shortness of breath which is chronic for him. He stated he had went to [employer] on Sunday, was feeling fine and while eating lunch after [employer] started experiencing some facial numbness and tingling. He then came to the emergency room. CT of the brain was normal with changes associated with aging. Chest x- ray showed COPD and possible bronchitis. There was no signs or symptoms of CHF. He had no leg edema. He does have poor cardiac output with an ejection fraction of 25%. Carotid ultrasound was done during his hospital stay for which showed less than 50% stenosis bilaterally. He is currently on Xarelto for his history of atrial fib. He was admitted, placed on routine telemetry orders, given Keflex p.o. and Decadron for his bronchitis type symptoms. His labs and vital signs have been fine. Today, on day of discharge, temperature 97.5, heart rate 89, respirations 17, BP 136/83, pulse ox 96%. Labs have also been steady. He does have chronic anemia with hemoglobin of 10.8, hematocrit 32.6, white count 13 due to steroids, BUN 22, creatinine 1.0, sodium 143, potassium 3.7. Telemetry did show consistent atrial fibrillation off and on which is a normal finding for him. He had no medication changes except with the addition of Keflex and Prednisone for the bronchitis. His rate is controlled with Digoxin and Cardizem. He last had an echo in September of 2016. He has not experienced any facial numbness or tingling since after admission. Anxiety was discussed with him in detail. He does have some anxiety about his poor cardiac output. This was discussed with him. Again, he is in stable condition and will be discharged home on antibiotics. We will followup with him in the office. TIME SPENT: More than 60 minutes. LAYLA
== END 2017-01-23 12:35 | disposition home or self-care (01) | DRG 292 ==
LOC: ED 15:52 → MEDSURG B 19:41
PROVIDERS: ADMIT Internal Medicine; ATTEND Internal Medicine
DX: I50.23 Acute on chronic systolic (congestive) heart failure (principal); J44.0 Chronic obstructive pulmonary disease with (acute) lower respiratory infection; J20.9 Acute bronchitis, unspecified; R20.0 Anesthesia of skin; R53.1 Weakness; R06.02 Shortness of breath; I48.91 Unspecified atrial fibrillation; E11.9 Type 2 diabetes mellitus without complications; I10 Essential (primary) hypertension; R93.1 Abnormal findings on diagnostic imaging of heart and coronary circulation; I25.10 Atherosclerotic heart disease of native coronary artery without angina pectoris; I65.22 Occlusion and stenosis of left carotid artery; E78.5 Hyperlipidemia, unspecified; E03.9 Hypothyroidism, unspecified; M10.9 Gout, unspecified; M54.30 Sciatica, unspecified side; G89.29 Other chronic pain; M51.36 Other intervertebral disc degeneration, lumbar region; K21.9 Gastro-esophageal reflux disease without esophagitis; F41.8 Other specified anxiety disorders; M19.90 Unspecified osteoarthritis, unspecified site; Z79.01 Long term (current) use of anticoagulants; Z79.84 Long term (current) use of oral hypoglycemic drugs
CPT/HCPCS: 36415; 80053; 80162; 81001; 82550; 82553; 82803; 83880; 84484; 85025; 93005; 93010; 94640; 96374; 99284

== ENCOUNTER 2017-01-27 02:12 | Emergency (ER) ==
[2017-01-27 02:23] VITALS: BMI 26.9
[2017-01-27] MEDS ORDERED: XOPENEX 0.63 MG NEB STA (02:43)
[2017-01-27 02:45] LABS: BASOPHILS # (AUTO) 0.1 K/uL (0-0.2); BASOPHILS % (AUTO) 0.3 % (0.0-3.0); EOSINOPHILS # (AUTO) 0.1 K/ul (0.0-0.7); EOSINOPHILS % (AUTO) 0.4 % (0.0-7.0); HEMATOCRIT 37.1 % (42.0-52.0); HEMOGLOBIN 12.3 g/dl (14.0-18.0); IMMATURE GRANULOCYTE % (AUTO) 2.1 % (0.0-5.0); LYMPHOCYTES # (AUTO) 2.1 K/uL (0.60-3.4); LYMPHOCYTES % (AUTO) 11.5 (10.0-50.0); MEAN CORPUSCULAR HEMOGLOBIN 27.8 pg (27.0-31.0); MEAN CORPUSCULAR HGB CONC 33.2 (31.8-35.4); MEAN CORPUSCULAR VOLUME 83.9 fl (80.0-94.0); MONOCYTES % (AUTO) 5.5 (0-10); NEUTROPHILS # (AUTO) 14.7 K/ul (2.0-6.9); NEUTROPHILS % (AUTO) 80.2; PLATELET COUNT 345 10^3/uL (140-440); RED BLOOD COUNT 4.42 10^6/ul (4.70-6.10); WHITE BLOOD COUNT 18.31 K/ul (4.2-10.2)
[2017-01-27 02:57] LABS: ABG BASE EXCESS -4 (-2.0-2.0); ABG HCO3 20 (22.0-26.0); ABG PCO2 29.1 mmHg (35-45); ABG PH 7.445 (7.35-7.45); ABG TCO2 21 (22.0-28.0)
[2017-01-27] MEDS ORDERED: ALBUTEROL 0.042% NEB NEB STA (02:57)
[2017-01-27 03:03] LABS: ALBUMIN 3.4 g/dL (3.4-5.0); ALBUMIN/GLOBULIN RATIO 0.92; ANION GAP 20.7; BILIRUBIN,TOTAL 0.62 mg/dL (0.00-1.20); CALCIUM 7.7 mg/dL (8.2-10.2); CREATININE 1.2 mg/dL (0.60-1.10); POTASSIUM 4.7 mmol/L (3.5-5.1); TOTAL PROTEIN 7.1 g/dL (5.8-8.1)
[2017-01-27] MEDS ORDERED: SOLU-MEDROL 40 MG IVP STA (03:12)
[2017-01-27 03:39] LABS: TROPONIN I 1.127 ng/ml (0.0000-0.4000)
--- NOTE | 2017-01-27 03:39 | CT ---
Exam: CT of the chest without contrast History: Shortness of breath Technique: [address] of the chest without intravenous contrast FINDINGS: The lung windows show bilateral multilobar central ground-glass opacity with superimposed interlobular septal thickening. No consolidative opacities. Small right and trace left pleural flui d. Atherosclerotic calcification of the aorta and coronary arteries. No pathologic lymph node enlar gement or abundance. No acute findings of the chest wall soft tissues or bony thorax. No acute find ings of the upper abdomen. Impression: 1. Ground-glass infiltrates and interlobular septal thickening are nonspecific but usually represent edema. There are no consolidative opacities.
[2017-01-27 03:40] LABS: CREATINE KINASE MB 11.4 ng/ml (0.0-3.6)
--- NOTE | 2017-01-27 03:51 | ED.PDOC ---
General ED Provider: Dr. BASILIO CHANDRA-ER Chief Complaint: Shortness of Air Stated Complaint: im sob and im coughing up blood Time Seen by Physician: 02:20 Mode of Arrival: Wheelchair Information Source: Patient, Family Exam Limitations: No limitations Primary Care Provider: HIRA HERRERA Nursing and Triage Documentation Reviewed and Agree: Yes Respiratory Complaint Exam - Shortness of Air Complaint/Exam Onset/Duration: 24 hrs Symptoms Are: Still present Timing: Constant Initial Severity: Mild Current Severity: Moderate Aggravating: Reports: None Alleviating: Reports: Oxygen Associated Signs and Symptoms: Reports: Cough, Labored breathing. Denies: Wheezing, Chest pain with cough, Chest pain, Fever, Chills, Diaphoresis, Nasal congestion, Dizziness, Calf pain, Calf swelling, Edema, Rapid breathing, Decreased intake Related History: Reports: Similar episode History of Healthcare-Acquired Pneumonia: No Cardiac Risk Factors: Reports: CAD, Diabetes, Hypertension, CHF Pseudomonas Risk Factors: Reports: Chronic Lung Disease Tuberculosis Risk Factors: Reports: Chronic Resp. Faliure Recent Stress Test: No Recent Echo/LV Function: Yes Respiratory Distress: Mild Stridor Present: No Tracheal Deviation: No Subcutaneous Emphysema: No Accessory Muscle Use: No Retractions: Not Present Diminished Breath Sounds: No Prolonged Expiratory Phase: No Unable to Speak Full Sentences: No Fatigue: Yes Leg Swelling: No Desi's Sign Present: No Grunting Respirations: No Kussmaul Respirations: No Differential Diagnoses: CHF, Pulmonary Edema, COPD Exacerbation, SC, Pneumonia Quality Indicator For Non-Traumatic Chest Pain/Syncope: EKG Performed Review of Systems - Review Of Systems Constitutional: Reports: No symptoms Eyes: Reports: No symptoms Ears, Nose, Mouth, Throat: Reports: No symptoms Respiratory: Reports: Cough, Short of air Cardiac: Reports: No symptoms GI: Reports: No symptoms : Reports: No symptoms Musculoskeletal: Reports: No symptoms Skin: Reports: No symptoms Neurological: Reports: No symptoms Endocrine: Reports: No symptoms Hematologic/Lymphatic: Reports: No symptoms All Other Systems: Reviewed and Negative Past Medical History - Past Medical History Previously Healthy: Yes Endocrine: Reports: DM 2, Dyslipidemia, Other (GOUT) Cardiovascular: Reports: CAD, Hypertension, CHF, A-Fib Respiratory: Reports: COPD Hematological: Reports: Anemia Gastrointestinal: Reports: GERD Genitourinary: Reports: None Neuro/Psych: Reports: Anxiety, Depression Musculoskeletal: Reports: Arthritis, Joint Pain, Gout Cancer: Reports: None - Surgical History General Surgical History: Reports: None, Cholecystectomy, Orthopedic (LEFT knee replacement, 2 broken arms), Other ( RIGHT CAROTID) - Family History Family History: Reports: None - Social History Smoking Status: Former smoker Hx Substance Use: No Alcohol Screening: None - Immunizations Tetanus Shot up to Date: Yes Physical Exam - Physical Exam Appearance: Well-appearing, No pain distress, Well-nourished Eyes: VISHAL, EOMI, Conjunctiva clear ENT: Ears normal, Nose normal, Oropharynx normal Neck: Supple Respiratory: Crackles Cardiovascular: RRR, Pulses normal, No rub, No murmur GI/: Soft Musculoskeletal: Normal strength, ROM intact, No edema, No calf tenderness Skin: Warm Neurological: Sensation intact Psychiatric: Affect appropriate, Mood appropriate, Anxious Interpretation - Radiology Interpretation Radiology Interpretation By: Radiologist Radiology Results: Positive Exam Interpreted: CT Scan - EKG Interpretation Time of EKG #1: 03:51 Rate: Normal Rhythm: Sinus Ectopy: None Sanderson: Left Re-Evaluation - Re-Evaluation Time of Re-Evaluation: 04:03 Status: Unchanged Vital Signs Stable: Yes Pain Level: 0 Appearance: NAD Lungs: Clear Skin: Warm and Dry Neuro: Alert and Oriented X3 CV: RRR Physician Notification - Case Discussed Physician Notified: dr herrera--notified--asked for transfer to [facility] Time of Notification: 03:58 Physician Notified: dr novak accepted in transfer to [facility] Time of Notification: 04:04 Critical Care Note - Critical Care Note Total Time (mins): 30 Course - Course Hematology/Chemistry: 01/27/17 02:35 01/27/17 02:35 Orders, Labs, Meds: Lab Review 01/27/17 01/27/17 01/27/17 02:03 02:35 02:35 WBC 18.31 H RBC 4.42 L Hgb 12.3 L Hct 37.1 L MCV 83.9 MCH 27.8 MCHC 33.2 RDW Coeff of Jennifer 16.7 H Plt Count 345 Immature Gran % (Auto) 2.1 Neut % (Auto) 80.2 Lymph % (Auto) 11.5 Fleming % (Auto) 5.5 Eos % (Auto) 0.4 Baso % (Auto) 0.3 Immature Gran # (Auto) 0.4 Neut # 14.7 H Lymph # 2.1 Fleming # 1.0 Eos # 0.1 Baso # 0.1 D-Dimer (Manual) Puncture Site O2 Saturation ABG pH ABG pCO2 ABG pO2 ABG HCO3 ABG Total CO2 ABG Base Excess Stuart Test FiO2 % Sodium 137 Potassium 4.7 Chloride 104 Carbon Dioxide 17 L Anion Gap 20.7 BUN 30 H Creatinine 1.20 H Estimated GFR (MDRD) 59.00 BUN/Creatinine Ratio 25.00 Glucose 242 H Calcium 7.7 L Total Bilirubin 0.62 AST 42 H ALT 63 Alkaline Phosphatase 119 Total Creatine Kinase 191 CK-MB (CK-2) 11.4 H* CK-MB (CK-2) % 5.60555 Troponin I 1.1270 H* B-Natriuretic Peptide Total Protein 7.1 Albumin 3.4 Globulin 3.7 Albumin/Globulin Ratio 0.92 TSH 01/27/17 01/27/17 01/27/17 02:35 02:35 02:35 WBC RBC Hgb Hct MCV MCH MCHC RDW Coeff of Jennifer Plt Count Immature Gran % (Auto) Neut % (Auto) Lymph % (Auto) Fleming % (Auto) Eos % (Auto) Baso % (Auto) Immature Gran # (Auto) Neut # Lymph # Fleming # Eos # Baso # D-Dimer (Manual) 389.40 Puncture Site O2 Saturation ABG pH ABG pCO2 ABG pO2 ABG HCO3 ABG Total CO2 ABG Base Excess Stuart Test FiO2 % Sodium Potassium Chloride Carbon Dioxide Anion Gap BUN Creatinine Estimated GFR (MDRD) BUN/Creatinine Ratio Glucose Calcium Total Bilirubin AST ALT Alkaline Phosphatase Total Creatine Kinase CK-MB (CK-2) CK-MB (CK-2) % Troponin I B-Natriuretic Peptide 1216 H Total Protein Albumin Globulin Albumin/Globulin Ratio TSH 1.530 01/27/17 02:41 WBC RBC Hgb Hct MCV MCH MCHC RDW Coeff of Jennifer Plt Count Immature Gran % (Auto) Neut % (Auto) Lymph % (Auto) Fleming % (Auto) Eos % (Auto) Baso % (Auto) Immature Gran # (Auto) Neut # Lymph # Fleming # Eos # Baso # D-Dimer (Manual) Puncture Site Lb O2 Saturation 99.0 ABG pH 7.445 ABG pCO2 29.1 L ABG pO2 111.0 H ABG HCO3 20 L ABG Total CO2 21 L ABG Base Excess -4 L Stuart Test + FiO2 % 21.0 Sodium Potassium Chloride Carbon Dioxide Anion Gap BUN Creatinine Estimated GFR (MDRD) BUN/Creatinine Ratio Glucose Calcium Total Bilirubin AST ALT Alkaline Phosphatase Total Creatine Kinase CK-MB (CK-2) CK-MB (CK-2) % Troponin I B-Natriuretic Peptide Total Protein Albumin Globulin Albumin/Globulin Ratio TSH Orders Category Date Time Status ABG DRAW REQUEST Stat CARDIO 01/27/17 02:41 Ordered EKG-(ED ONLY) Stat CARDIO 01/27/17 02:39 Ordered NEBULIZER TREATMENT Stat CARDIO 01/27/17 02:43 Ordered NEBULIZER TREATMENT Stat CARDIO 01/27/17 02:58 Ordered IV [ED IV/MEDIPORT/POWERPORT] .ONCE EMERGENCY 01/27/17 02:57 Active ARTERIAL BLOOD GAS [ABG] Stat LAB 01/27/17 02:41 Completed BLOOD CULTURE (ED ONLY) Stat LAB 01/27/17 03:52 Received BNP [B-TYPE NATRIURETIC PEPTIDE] Stat LAB 01/27/17 02:35 Completed CBC W/ AUTO DIFF Stat LAB 01/27/17 02:35 Completed CK [CREATINE KINASE] Stat LAB 01/27/17 02:03 Completed CMP [COMPREHENSIVE METABOLIC PANEL] Stat LAB 01/27/17 02:35 Completed D-DIMER Stat LAB 01/27/17 02:35 Completed FLU A & B RAPID TEST [RAPID FLU A/B] Stat LAB 01/27/17 03:35 Ordered TROPONIN I Stat LAB 01/27/17 02:03 Completed TSH [THYROID STIMULATING HORMONE] Stat LAB 01/27/17 02:35 Completed 0.9 % Sodium Chloride [Saline Flush] MEDS 01/27/17 02:57 Ordered 1 syr IVF PRN PRN Albuterol Sulfate 0.042% Neb [Albuterol 0.042% Neb] MEDS 01/27/17 02:57 Discontinued 1 vial NEB ONCE STA Levalbuterol HCl [Xopenex 0.63 mg] MEDS 01/27/17 02:43 Discontinued 1 vial NEB ONCE STA Methylprednisolone Sod Succ/Pf [Solu-Medrol 40 mg] MEDS 01/27/17 03:12 Discontinued [address]P ONCE STA CT CHEST W/O CONTRAST Stat RADS 01/27/17 02:41 Completed Medications Generic Name Dose Route Start Last Admin Trade Name Freq PRN Reason Stop Dose Admin Sodium Chloride 1 syr 01/27/17 02:57 01/27/17 03:43 Saline Flush IVF 1 syr PRN PRN Administration To flush IV Discontinued Medications Generic Name Dose Route Start Last Admin Trade Name Huong PRN Reason Stop Dose Admin Albuterol Sulfate 1 vial 01/27/17 02:57 01/27/17 03:25 Albuterol 0.042% Neb NEB 01/27/17 02:58 1 vial ONCE STA Administration Levalbuterol HCl 1 vial 01/27/17 02:43 01/27/17 03:12 Xopenex 0.63 Mg NEB 01/27/17 02:44 1 vial ONCE STA Administration Methylprednisolone Sodium Succinate 40 mg 01/27/17 03:12 01/27/17 03:43 Solu-Medrol 40 Mg IVP 01/27/17 03:13 40 mg ONCE STA Administration Vital Signs: Temp Pulse Resp BP Pulse Ox 01/27/17 03:53 94 H 23 112/80 91 L 01/27/17 02:15 97.8 F 92 H 24 104/67 88 L Departure - Departure Time of Disposition: 04:04 Disposition: TSF SHORT-TRM HOSP Discharge Problem: Congestive heart failure (CHF) Qualifiers: Congestive heart failure type: unspecified congestive heart failure type Congestive heart failure chronicity: acute on chronic Qualified Code(s): I50.9 - Heart failure, unspecified Instructions: Heart Failure (ED) Condition: Stable Pt referred to PMD for follow-up: Yes Allergies/Adverse Reactions: Allergies hydrocodone [From [place]] Adverse Reaction (Verified 01/27/17 02:23) Rash Home Medications: Ambulatory Orders Allopurinol 100 mg PO DAILY 10/10/16 Alprazolam [Xanax] 0.5 mg PO BID 10/10/16 Aspirin [Aspirin EC] 81 mg PO BEDTIME 10/10/16 Atorvastatin Calcium [Lipitor] 40 mg PO DAILY 10/10/16 Cetirizine HCl [Zyrtec] 10 mg PO DAILY 10/10/16 Digoxin 125 mcg PO DAILY 10/10/16 Furosemide [Lasix Tab] 40 mg PO QDAC 10/10/16 Hydroxyzine HCl [Atarax] 25 mg PO TID 10/10/16 Levothyroxine Sodium [Synthroid] 125 mcg PO DAILY 10/10/16 Lisinopril [Zestril] 5 mg PO DAILY 10/10/16 Metformin HCl 500 mg PO BEDTIME 10/10/16 Pantoprazole Sodium [Protonix] 40 mg PO BIDAC 10/10/16 Potassium Chloride [K-Dur] 20 meq PO DAILY 10/10/16 Rivaroxaban [Xarelto] 20 mg PO DAILY 10/10/16 Sitagliptin Phosphate [Januvia] 100 mg PO DAILY 10/10/16 Metoprolol Tartrate [Lopressor] 50 mg PO BID #60 tablet 10/12/16 Ca/D3/Mag Ox/Zinc/[employer]/Fausto/Bor [Calcium 600+D3 Plus Caplet] 1 each PO DAILY Cholecalciferol (Vitamin D3) [Vitamin D3] 1,000 unit PO DAILY 01/21/17 Diltiazem HCl [Cardizem] 60 mg PO Q12HR 01/21/17 Gabapentin [Neurontin] 100 mg PO Q8HR PRN 01/21/17 Albuterol Sulfate [Proventil Hfa] 6.7 gm IH Q6H PRN #1 hfa.aer.ad 01/23/17 Cephalexin [Keflex] 500 mg PO Q8HR #21 capsule 01/23/17 Prednisone 10 mg PO BIDWM #10 tablet 01/23/17 Transfer Form Completed: Yes Disposition Discussed With: Patient, Family
[2017-01-27] MEDS ORDERED: ROCEPHIN 1 GM in SODIUM CHLORIDE 50 ML IV STA (04:05)
[2017-01-27] MEDS ORDERED: ROCEPHIN ONE (04:08)
[2017-01-27 04:45] VITALS: BP 118/78; TEMP 98
== END 2017-01-27 04:40 | disposition short-term general hospital (02) ==
LOC: ED 02:12
DX: I50.9 Heart failure, unspecified (principal); I25.10 Atherosclerotic heart disease of native coronary artery without angina pectoris; I10 Essential (primary) hypertension; E11.9 Type 2 diabetes mellitus without complications; E78.5 Hyperlipidemia, unspecified; D64.9 Anemia, unspecified; J44.9 Chronic obstructive pulmonary disease, unspecified; R06.02 Shortness of breath; R04.2 Hemoptysis; Z79.899 Other long term (current) drug therapy
CPT/HCPCS: 36415; 80053; 82550; 82553; 82803; 83880; 84443; 84484; 85025; 85379; 87040; 93005; 93010; 94640; 96361; 96365; 96366; 96375; 99285

== ENCOUNTER 2017-02-21 11:01 | Outpatient (CLI) | END 2017-02-21 11:02 | disposition home or self-care (01) | LOC: AMBL 11:01 | PROVIDERS: ATTEND Internal Medicine | DX: R53.1 Weakness (principal); R20.0 Anesthesia of skin; R42 Dizziness and giddiness; I48.91 Unspecified atrial fibrillation; I50.9 Heart failure, unspecified; E11.9 Type 2 diabetes mellitus without complications ==

== ENCOUNTER 2017-02-22 19:52 | Outpatient (CLI) | END 2017-02-22 19:53 | disposition short-term general hospital (02) | LOC: AMBL 19:52 | PROVIDERS: ATTEND Family Medicine | DX: R20.0 Anesthesia of skin (principal); R25.1 Tremor, unspecified; R41.0 Disorientation, unspecified; I48.91 Unspecified atrial fibrillation ==

== ENCOUNTER 2017-03-27 21:52 | Inpatient (IN) ==
--- NOTE | 2017-03-27 22:35 | CT ---
EXAM: CT head without contrast. HISTORY: Dizziness. PROCEDURE: Contiguous axial CT images of the head without contrast with coronal and sagittal reforma ts. FINDINGS: Comparison made with CT of 01/21/2017. There is diffuse cerebral atrophy. The ventricles a nd basal cisterns are normal in size and configuration. No evidence of mass or midline shift. No in tracranial hemorrhage or evidence of new large vessel infarct. Redemonstrated is a small focal area o f encephalomalacia in the right parietal lobe. There are chronic small vessel ischemic changes in th e white matter. No extra-axial fluid collection. There is mucosal thickening in the right maxillary sinus. The mastoid air cells are well-aerated and normal in appearance. Impression: Stable CT head compared with CT of 01/21/2017. No intracranial hemorrhage or evidence of new large vessel infarct. Right parietal encephalomalacia. Chronic small vessel ischemic changes. Diffuse cerebral atrophy. Paranasal sinusitis.
--- NOTE | 2017-03-27 23:17 | ED.PDOC ---
General ED Provider: Dr. BASILIO CHANDRA-ER Chief Complaint: Dizziness Stated Complaint: had numbness and dizziness at home that resolved since he came here--had similar episode at [facility] and found mag to be low-- Time Seen by Physician: 21:55 Mode of Arrival: Wheelchair Information Source: Patient Exam Limitations: No limitations Primary Care Provider: HIRA HERRERA Nursing and Triage Documentation Reviewed and Agree: Yes Reviewed sepsis parameters & appropriate labs ordered?: Yes System Inflammatory Response Syndrome: Not Applicable Sepsis Protocol: For patient's 13 years and over: Temp is 96.8 and below OR 101 and greater Pulse >90 BPM Resp >20/minute Acutely Altered Mental Status Are patient's symptoms suggestive of a new infection, such as: -Pneumonia -Skin, Soft Tissue -Endocarditis -UTI -Bone, Joint Infection -Implantable Device -Acute Abdominal Infection -Wound Infection -Meningitis -Blood Stream Catheter Infection -Unknown Neurological Complaint Exam - Altered Mental Status Complaint/Exam Current Mental Status: Confusion Onset: Sudden Symptoms Are: Resolved Initial Severity: Mild Current Severity: Mild Eye Deviation Present: No Character: Reports: Lethargy Aggravating: Reports: None Alleviating: Reports: Spontaneous resolution Associated Signs and Symptoms: Reports: Dizziness Related History: Reports: Similar episode Cardiac Risk Factors: Reports: Hypertension, Diabetes CVA Risk Factors: Reports: Diabetes, Hypertension Related Surgical History: Reports: None Carotid Bruit Present: No Nystagmus Present: No Gag Reflex Present: Yes Meningeal Signs Positive: Yes Focal Weakness: Present: None Focal Sensory Loss: Present: None Gait: Normal [id number]: Normal Findings Romberg Test Positive: No Babinski Sign: Negative Right, Negative Left Heel to Toe Normal: Yes Signs of Injury: Present: Normal findings Thrombolytics Considered: No Differential Diagnoses: Metabolic Disorder Review of Systems - Review Of Systems Constitutional: Reports: No symptoms Eyes: Reports: No symptoms Ears, Nose, Mouth, Throat: Reports: No symptoms Respiratory: Reports: No symptoms Cardiac: Reports: No symptoms GI: Reports: No symptoms : Reports: No symptoms Musculoskeletal: Reports: No symptoms Skin: Reports: No symptoms Neurological: Reports: Tingling, Weakness Endocrine: Reports: No symptoms Hematologic/Lymphatic: Reports: No symptoms All Other Systems: Reviewed and Negative Past Medical History - Past Medical History Previously Healthy: Yes Endocrine: Reports: DM 2, Dyslipidemia, Other (GOUT) Cardiovascular: Reports: CAD, Hypertension, CHF, A-Fib Respiratory: Reports: COPD Hematological: Reports: Anemia Gastrointestinal: Reports: GERD Genitourinary: Reports: None Neuro/Psych: Reports: Anxiety, Depression Musculoskeletal: Reports: Arthritis, Joint Pain, Gout Cancer: Reports: None - Surgical History General Surgical History: Reports: None, Cholecystectomy, Orthopedic (LEFT knee replacement, 2 broken arms), Other ( RIGHT CAROTID) - Family History Family History: Reports: None - Social History Smoking Status: Former smoker Hx Substance Use: No Alcohol Screening: None - Immunizations Tetanus Shot up to Date: No (unsure) Physical Exam - Physical Exam Appearance: Well-appearing, No pain distress, Well-nourished Eyes: VISHAL, EOMI, Conjunctiva clear ENT: Ears normal, Nose normal, Oropharynx normal Neck: Supple Respiratory: Airway patent, Breath sounds clear, Breath sounds equal, Respirations nonlabored Cardiovascular: RRR, Pulses normal, No rub, No murmur GI/: Soft, Nontender, No masses, Bowel sounds normal, No Organomegaly Musculoskeletal: Normal strength, ROM intact, No edema, No calf tenderness Skin: Warm, Dry, Normal color Neurological: Sensation intact, Alert, Oriented Psychiatric: Affect appropriate Interpretation - Radiology Interpretation Radiology Interpretation By: Radiologist Radiology Results: Negative Exam Interpreted: CT Scan - EKG Interpretation Time of EKG #1: 23:17 Rate: Normal Rhythm: Other Ectopy: None Reddick: NL ST Segment: Normal Interpretation: afib Re-Evaluation - Re-Evaluation Time of Re-Evaluation: 23:19 Status: Improved Vital Signs Stable: Yes Pain Level: 0 Appearance: NAD Lungs: Clear Skin: Warm and Dry Neuro: Alert and Oriented X3 CV: RRR Physician Notification - Case Discussed Physician Notified: dr herrera Time of Notification: 23:19 Critical Care Note - Critical Care Note Total Time (mins): 0 Course - Course Hematology/Chemistry: 03/27/17 22:20 03/27/17 22:20 Orders, Labs, Meds: Lab Review 03/27/17 03/27/17 03/27/17 22:16 22:20 22:20 WBC 11.27 H RBC 3.66 L Hgb 10.4 L Hct 31.2 L MCV 85.2 MCH 28.4 MCHC 33.3 RDW Coeff of Jennifer 15.9 H Plt Count 261 Immature Gran % (Auto) 1.4 Neut % (Auto) 60.5 Lymph % (Auto) 23.7 Graves % (Auto) 10.9 H Eos % (Auto) 3.1 Baso % (Auto) 0.4 Immature Gran # (Auto) 0.2 Neut # 6.8 Lymph # 2.7 Graves # 1.2 Eos # 0.4 Baso # 0.0 Sodium 137 Potassium 3.6 Chloride 99 Carbon Dioxide 24 Anion Gap 17.6 BUN 14 Creatinine 1.11 H Estimated GFR (MDRD) 64.00 BUN/Creatinine Ratio 12.61 Glucose 120 H Calcium 6.9 L Magnesium < 0.7 L* Total Bilirubin 0.8 AST 17 ALT 12 Alkaline Phosphatase 115 Total Creatine Kinase 157 CK-MB (CK-2) 1.4 CK-MB (CK-2) % 0.48258 Troponin I < 0.0100 Total Protein 7.0 Albumin 3.2 L Globulin 3.8 Albumin/Globulin Ratio 0.84 TSH 2.672 Influenza A (Rapid) Negative by naat Influenza B (Rapid) Negative by naat Orders Category Date Time Status EKG-(ED ONLY) Stat CARDIO 03/27/17 22:11 Completed CBC W/ AUTO DIFF Stat LAB 03/27/17 22:20 Completed COMPREHENSIVE METABOLIC PANEL Stat LAB 03/27/17 22:20 Completed CREATINE KINASE Stat LAB 03/27/17 22:20 Completed FLU A/B MOLECULAR Stat LAB 03/27/17 22:16 Completed MAGNESIUM Stat LAB 03/27/17 22:20 Completed MOLECULAR GROUP A STREP Stat LAB 03/27/17 22:16 Completed THYROID STIMULATING HORMONE Stat LAB 03/27/17 22:20 Completed TROPONIN I Stat LAB 03/27/17 22:[address] HEAD W/O CONTRAST Stat RADS 03/27/17 22:11 Completed Vital Signs: Temp Pulse Resp BP Pulse Ox 03/27/17 21:54 98 F 109 H 20 112/62 96 Departure - Departure Time of Disposition: 23:19 Disposition: HOME SELF-CARE Discharge Problem: Hypomagnesemia Condition: Fair Pt referred to PMD for follow-up: Yes IPMP verified?: No Allergies/Adverse Reactions: Allergies hydrocodone [From [place]] Adverse Reaction (Verified 03/27/17 21:58) Rash Home Medications: Ambulatory Orders Allopurinol 100 mg PO DAILY 10/10/16 Alprazolam [Xanax] 0.5 mg PO BID 10/10/16 Aspirin [Aspirin EC] 81 mg PO BEDTIME 10/10/16 Atorvastatin Calcium [Lipitor] 40 mg PO DAILY 10/10/16 Cetirizine HCl [Zyrtec] 10 mg PO DAILY 10/10/16 Digoxin 125 mcg PO DAILY 10/10/16 Furosemide [Lasix Tab] 40 mg PO QDAC 10/10/16 Levothyroxine Sodium [Synthroid] 125 mcg PO DAILY 10/10/16 Lisinopril [Zestril] 5 mg PO DAILY 10/10/16 Metformin HCl 500 mg PO BEDTIME 10/10/16 Pantoprazole Sodium [Protonix] 40 mg PO BIDAC 10/10/16 Potassium Chloride [K-Dur] 20 meq PO DAILY 10/10/16 Rivaroxaban [Xarelto] 20 mg PO DAILY 10/10/16 Sitagliptin Phosphate [Januvia] 100 mg PO DAILY 10/10/16 Ca/D3/Mag Ox/Zinc/[employer]/Fausto/Bor [Calcium 600+D3 Plus Caplet] 1 each PO DAILY Cholecalciferol (Vitamin D3) [Vitamin D3] 1,000 unit PO DAILY 01/21/17 Diltiazem HCl [Cardizem] 60 mg PO Q12HR 01/21/17 Gabapentin [Neurontin] 100 mg PO Q8HR PRN 01/21/17 Albuterol Sulfate [Proventil Hfa] 6.7 gm IH Q6H PRN #1 hfa.aer.ad 01/23/17 Carvedilol [Coreg] 12.5 mg PO BID 03/27/17 Fluticasone Propionate [Flonase] 1 spray NS DAILY 03/27/17 Meclizine HCl 12.5 mg PO TID PRN 03/27/17 Metronidazole [Flagyl] 500 mg PO DIRECTED PRN 03/27/17 Mometasone/Formoterol [Dulera 200 Mcg/5 Mcg Inhaler] 2 puff INH BID 03/27/17 Olopatadine HCl 30.5 gm NS DAILY 03/27/17 Ondansetron HCl [Zofran] 4 mg PO Q8H PRN 03/27/17 Disposition Discussed With: Patient, Family
[2017-03-27] MEDS ORDERED: ANTIVERT PO PRN (23:23)
[2017-03-27] MEDS ORDERED: ZOFRAN TAB PO PRN (23:23)
[2017-03-27] MEDS ORDERED: PROAIR HFA IH PRN (23:23)
[2017-03-27] MEDS ORDERED: NEURONTIN PO PRN (23:23)
[2017-03-27] MEDS ORDERED: MAGNESIUM SULFATE 2 GM in PREMIX 100 ML D5W 2 BAG IV STA (23:28)
[2017-03-27] MEDS ORDERED: MAGNESIUM SULFATE 200 ML IV ONE (23:39)
[2017-03-28] MEDS: XANAX PO SCH ×3 (00:47→20:38)
[2017-03-28] MEDS: GLUCOPHAGE PO SCH ×2 (00:47→20:38)
[2017-03-28 01:37] VITALS: BMI 26.7
[2017-03-28] MEDS: PROTONIX PO SCH ×2 (05:49→16:57)
[2017-03-28] MEDS: SYNTHROID PO SCH ×2 (05:49)
[2017-03-28] MEDS: LASIX TAB PO SCH (05:49)
--- NOTE | 2017-03-28 08:22 | PCM.PROG ---
Attending Provider: ATTENDING PROVIDER: Dr. HIRA PARKER DATE OF SERVICE: 03/28/17 SUBJECTIVE: This 77 year old WHITE/ M was hospitalized 03/27/17 with low magnesium level with face numbness. Magnesium level has gone up to 1.1 Getting IV Magnesium. REVIEW OF SYSTEMS: CONSTITUTIONAL: No night sweats. No fatigue, malaise, lethargy. No fever or chills. HEENT: Eyes: No visual changes. No eye pain. No eye discharge. ENT: No runny nose. No epistaxis. No sinus pain. No odynophagia. No congestion. RESPIRATORY: No cough, no congestion. No hemoptysis. No shortness of breath. CARDIOVASCULAR: No angina symptoms. No CHF symptoms. No atypical chest pain for CAD. No palpitations. No orthopnea.. GASTROINTESTINAL: No abdominal pain. No nausea or vomiting. No diarrhea or constipation. No hematemesis. No hematochezia. GENITOURINARY: No urgency. No frequency. No dysuria. No hematuria. No obstructive symptoms. No discharge. No pain. No significant abnormal bleeding. MUSCULOSKELETAL: No musculoskeletal pain; no joint swelling. NEUROLOGICAL: Awake, alert, oriented to time, place and person. No headache. No neck pain. No syncope. No seizures. No dizziness. PSYCHIATRIC: Not anxious. No depression. No suicidal thoughts. No homicidal thoughts. SKIN: No rash. No lesions. No wounds. ENDOCRINE: No unexplained weight loss. No weight gain. HEMATOLOGIC/LYMPHATIC: No anemia. No purpura. No petechiae. No prolonged or excessive bleeding. No palpable lymph nodes. PHYSICAL EXAMINATION: GENERAL: The patient is awake, alert and oriented, lying/sitting in bed in no distress. VITAL SIGNS: Temperature 97.8 F, Pulse 98, Respiratory Rate 16, BP 120/68, Pulse Ox 97% HEENT: Head normocephalic, atraumatic. Eyes: Extraocular muscles are intact. Pupils are equal, round and reactive to light and accommodation. Ears: No lesions. Nose appeared normal. Throat: No exudate or erythema. NECK: Supple. No JVD, no carotid bruit. No lymphadenopathy or thyromegaly. LUNGS: Clear to auscultation. Percussion note normal. Chest symmetrical. HEART: S1, S2, no S3. No murmurs. No cyanosis or clubbing. No ascites. Pulses: Dorsalis pedis and posterior tibial pulses +1 to +2 both sides. ABDOMEN: Soft. Non-tender. Bowel sounds active. No CVA tenderness. No mass felt. EXTREMITIES: No edema. Full range of motion of all extremities, equal. NEUROLOGIC: No focal deficit. Cranial nerves II through XII are grossly intact. No headache, no double vision or headache. SKIN: Warm and dry. Intact. Turgor-normal. LYMPHATIC: No palpable lymph nodes/no lymphedema. MUSCULOSKELETAL: Normal joints with no swelling. Muscle tone is normal. LAB REVIEW: 03/28/17 04:00 03/28/17 04:00 03/28/17 04:00: Magnesium 1.1 L 03/28/17 04:00: Sodium 136, Potassium 3.1 L, Chloride 99, Carbon Dioxide 27, Anion Gap 13.1, BUN 12, Creatinine 0.89, Estimated GFR (MDRD) 83.00, BUN/ Creatinine Ratio 13.48, Glucose 107, Calcium 6.7 L, Total Bilirubin 0.8, AST 16 , ALT 10 L, Alkaline Phosphatase 116, Total Protein 7.1, Albumin 3.3 L, Globulin 3.8, Albumin/Globulin Ratio 0.87 03/28/17 04:00: WBC 10.31 H, RBC 3.55 L, Hgb 10.1 L, Hct 30.4 L, MCV 85.6, MCH 28.5, MCHC 33.2, RDW Coeff of Jennifer 15.8 H, Plt Count 253, Immature Gran % (Auto) 1.4, Neut % (Auto) 60.6, Lymph % (Auto) 22.3, [place] % (Auto) 10.9 H, Eos % (Auto ) 4.2, Baso % (Auto) 0.6, Immature Gran # (Auto) 0.1, Neut # 6.3, Lymph # 2.3, [place] # 1.1, Eos # 0.4, Baso # 0.1 ASSESSMENT: Please see below. Hypomagnesemia with symptoms History of atrial fibrillation Congestive heart failure Hypertension Dyslipidemia Anemia Low potassium level PLAN: Continue Magnesium supplement Potassium 20meq twice a day Plan and coordination of the patient's care discussed in the presence of Assessment Director and nurse. CONDITION: Stable SCRIBED BY: Giovanni BROUSSARD scribed while in presence of service performed by Dr. HIRA PARKER on 03/28/17 ([id number])
[2017-03-28] MEDS: FLONASE NAS SCH (08:42)
[2017-03-28] MEDS: JANUVIA PO SCH (08:42)
[2017-03-28] MEDS: ZYLOPRIM PO SCH (08:43)
[2017-03-28] MEDS: ZESTRIL PO SCH (08:43)
[2017-03-28] MEDS: ZYRTEC PO SCH (08:43)
[2017-03-28] MEDS: K-DUR PO SCH ×3 (08:43→16:57)
[2017-03-28] MEDS: CARDIZEM PO SCH ×2 (08:43→20:38)
[2017-03-28] MEDS: VITAMIN D PO SCH (08:43)
[2017-03-28] MEDS: LANOXIN PO SCH (08:44)
[2017-03-28] MEDS: OLOPATADINE HCL 30.5 GM NS SCH (08:44)
[2017-03-28] MEDS: COREG PO SCH ×2 (08:44→16:57)
[2017-03-28] MEDS ORDERED: NON-FORMULARY MEDICATION (Rivaroxaban [Xarelto] 20 MG) PO SCH (09:00)
[2017-03-28] MEDS ORDERED: K-DUR PO SCH (09:00)
[2017-03-28] MEDS ORDERED: MAG-OX PO SCH (09:00)
[2017-03-28] MEDS ORDERED: NON-FORMULARY MEDICATION (Sitagliptin Phosphate 100 MG) PO SCH (09:00)
[2017-03-28] MEDS ORDERED: NON-FORMULARY MEDICATION (Cholecalciferol (Vitamin D3) [Vitamin D3] 1,000 UNIT) PO SCH (09:00)
[2017-03-28] MEDS ORDERED: NON-FORMULARY MEDICATION (Atorvastatin Calcium [Lipitor] 40 MG) PO SCH (09:00)
[2017-03-28] MEDS ORDERED: NON-FORMULARY MEDICATION (Levothyroxine Sodium [Synthroid] 125 MCG) PO SCH (09:00)
[2017-03-28] MEDS ORDERED: XANAX PO SCH (09:00)
[2017-03-28] MEDS: NON-FORMULARY MEDICATION (Mometasone/Formoterol [Dulera 200 Mcg/5 Mcg Inhaler] 2 PUFF) INH SCH ×2 (09:28→20:37)
[2017-03-28] MEDS: ARTIFICIAL TEARS OPTH SOL OP PRN ×4 (09:28→20:37)
[2017-03-28] MEDS ORDERED: DECADRON 4 MG/ML SDV IM STA (11:47)
[2017-03-28] MEDS: HUMULIN R SUBCUT PRN ×3 (11:55→20:46)
[2017-03-28] MEDS: ZITHROMAX PO SCH (12:05)
--- NOTE | 2017-03-28 13:30 | RS.PTINEVL ---
Subjective - Patient information Date of Evaluation: 03/28/17 Date of Arrival on Unit: 03/27/17 Admitted From:: Home Diagnosis: hypomagnesium Usual Living Arrangement: With Spouse Living Arrangement Comments: pt states he has home health care at home Home Environment: House, Stairs (few), Rail Medical History: Hypertension, Diabetes, CHF, Arthritis Medical History Comments:: afib, gout, depression LATEX ALLERGY?: No Surgical History: Knee Replacement, Cholecystectomy Surgical History Comments:: R CEA Medications: see chart Subjective Information/ Patient Comments:: pt states his eyes feel like they have gravel in them. - Level of function Prior to this admission, the patient could do the following:: Independent ADL's , Independent Ambulation Abilities prior to this admission: pt amb with walking stick independently Current Level of Function: Partially Dependent Current Equipment Used at Home: glucometer, walking stick Interventions - Objective Patient Orientation: Person, Place, Time Current Interventions: Oxygen, Telemetry Range of Motion - ROM Right Upper Extremity AROM: WFL's Left Upper Extremity AROM: WFL's Right Lower Extremity AROM: WFL's Left Lower Extremity AROM: WFL's Muscle Strength - Muscle Strength Right Upper Extremity Strength: Mild Weakness (shld flex 4-/5, elbow flex/ext 4/ 5,) Left Upper Extremity Strength: Mild Weakness (shld flex 3+/5, elbow flex/ext 4-/ 5) Right Lower Extremity Strength: Mild Weakness (hip flex 4-/5, knee flex/ext 4/5 , ankle DF/PF 4/5) Left Lower Extremity Strength: Mild Weakness (hip flex 4-/5, knee flex/ext 4/5, ankle DF/PF 4/5) Sensation - Sensation Right Upper Extremity Sensation: Intact/Normal Left Upper Extremity Sensation: Intact/Normal Right Lower Extremity Sensation: Intact/Normal Left Lower Extremity Sensation: Intact/Normal Palpation Palpation Findings: None/Normal Balance - Sitting Balance and Reactions Static Sitting Balance: Normal Dynamic Sitting Balance: Good - Standing Balance and Reactions Static Standing Balance: Fair Dynamic Standing Balance: Poor Standing Equilibrium Reactions: Delayed Left, Delayed Right Standing Protective Reactions: Delayed Left, Delayed Right - Comments Balance Assessment Comments: Tinetti score 18/28 Functional Mobility - Bed Mobility Supine to Sit: Supervision Sit to Supine: Supervision - Transfers Sit to Stand: CGA Stand to Sit: CGA - Safety Awareness Safety Awareness: Fair Ambulation - Ambulation Assistive Device Used: Rolling Walker Orthotic/Prosthetic Device: No Distance: 80ft Assistance needed with Ambulation: CGA Quality of Ambulation: pt amb with O2 Gait Deviations: Forward posture, Short stride Ambulation Comments: pt amb with decreased step length, flexed posture, Factors Affecting Ambulation: Decreased Balance, Weakness, Limited Endurance, Limited Sensation Treatment time - Time with patient Total treatment time: 32 Patient Education - Education Patient Education: Activity Modification, Education of Plan of Care Teaching Recipient: Patient Teaching Methods: Discussion (Discussed with patient POC) Assessment - Assessment Problem List:: Decreased level of function, Requires training/education, Decreased safety/Risk of falls, Weakness, Pain limits previous level of function , Cognitive status limits abilities Rehab Potential: Good Further Therapy Indicated?: Yes Evaluation Complexity: HISTORY: Medium (chf, copd, dm, OA), EXAM OF BODY SYSTEMS : Medium (decreased strength, balance, endurance), CLINICAL PRESENTATION: Medium (evolving), CLINICAL DECISION MAKING: Medium Short Term Goals GOAL #1: pt demonstrate independence with bed mobility Goal to be met by: 03/30/17 GOAL #2: pt transfer sup to/from sit to/from stand SBA Goal to be met by: 03/30/17 GOAL #3: pt amb with rwx 100ft with CGA to SBA with no LOB Goal to be met by: 03/30/17 Gasket Inspector Goals GOAL #1: pt transfer sup to/from sit to/from stand independently Goal to be met by: 04/02/17 GOAL #2: pt amb with AAD functional household distances with supervision with no LOB Goal to be met by: 04/02/17 GOAL #3: pt with improved LE strength 4 to 4+/5 and independent with HEP Goal to be met by: 04/02/17 Plan Plan of Care: Therapeutic EX, Therapeutic Activity Other:: gait training Frequency of Treatment: 1-2 X day, as tolerated Duration of Treatment: 5 days Anticipated Discharge Destination: Home Has the Physician been added for Co-signature?: Yes
--- NOTE | 2017-03-28 15:29 | DI ---
EXAM: CHEST FRONTAL AND LATERAL VIEWS HISTORY: Congestive heart failure. COMPARISON: 01/21/2017 FINDINGS: Heart size within normal limits and stable. Lungs are mildly hyperinflated. Apical pleur al thickening is similar to that previously seen possibly related to apical fibrosis. No acute infilt rates are seen. No vascular congestion. There is no consolidation, visible pleural fluid or pneumot horax. Bones reveal no acute fracture. IMPRESSION: No acute cardiopulmonary process. Cannot exclude a component chronic obstructive pulm onary disease, correlate clinically.
[2017-03-28] MEDS: XARELTO PO SCH (16:56)
[2017-03-28] MEDS: LIPITOR PO SCH (20:37)
[2017-03-28] MEDS: ASPIRIN EC PO SCH (20:38)
[2017-03-29] MEDS: ARTIFICIAL TEARS OPTH SOL OP PRN ×2 (04:39→12:59)
[2017-03-29] MEDS: SYNTHROID PO SCH ×2 (05:49)
[2017-03-29] MEDS: LASIX TAB PO SCH (05:49)
[2017-03-29] MEDS: HUMULIN R SUBCUT PRN ×4 (05:49→21:53)
[2017-03-29] MEDS: PROTONIX PO SCH ×2 (05:49→17:17)
[2017-03-29] MEDS: TOBREX 0.3% OP SCH ×3 (08:35→20:21)
[2017-03-29] MEDS: DECADRON 4 MG/ML SDV IM SCH (08:36)
[2017-03-29] MEDS: CARDIZEM PO SCH ×2 (08:39→20:20)
[2017-03-29] MEDS: COREG PO SCH ×2 (08:39→17:17)
[2017-03-29] MEDS: FLONASE NAS SCH (08:40)
[2017-03-29] MEDS: JANUVIA PO SCH (08:41)
[2017-03-29] MEDS: K-DUR PO SCH ×3 (08:42→17:15)
[2017-03-29] MEDS: LANOXIN PO SCH (08:43)
[2017-03-29] MEDS: MAG-OX PO SCH ×3 (08:44→20:20)
[2017-03-29] MEDS: NON-FORMULARY MEDICATION (Mometasone/Formoterol [Dulera 200 Mcg/5 Mcg Inhaler] 2 PUFF) INH SCH ×2 (08:45→20:18)
[2017-03-29] MEDS: ZESTRIL PO SCH (08:46)
[2017-03-29] MEDS: VITAMIN D PO SCH (08:46)
[2017-03-29] MEDS: ZITHROMAX PO SCH (08:47)
[2017-03-29] MEDS: ZYRTEC PO SCH (08:48)
[2017-03-29] MEDS: ZYLOPRIM PO SCH (08:48)
[2017-03-29] MEDS ORDERED: ZITHROMAX PO SCH (09:00)
[2017-03-29] MEDS ORDERED: OLOPATADINE HCL 30.5 GM EACHEYE SCH (09:00)
[2017-03-29] MEDS: XANAX PO SCH ×2 (09:00→20:20)
[2017-03-29] MEDS: OLOPATADINE HCL 30.5 GM NS SCH ×2 (09:01→09:30)
--- NOTE | 2017-03-29 09:38 | PCM.PROG ---
Attending Provider: ATTENDING PROVIDER: Dr. HIRA PARKER This patient is seen with Aurelia Shirley, Nurse Practitioner. DATE OF SERVICE: 03/29/17 SUBJECTIVE: This 77 year old WHITE/ M was hospitalized 03/27/17. The patient is lying in bed, alert. The patient is still complaining of eye redness and drainage in the mornings. Magnesium has not increased from yesterday. REVIEW OF SYSTEMS: CONSTITUTIONAL: Weakness, No night sweats. No malaise, lethargy. No fever or chills. HEENT: Eyes: No visual changes. No eye pain. No eye discharge. ENT: No runny nose. No epistaxis. No sinus pain. No odynophagia. No congestion. RESPIRATORY: No cough, no congestion. No hemoptysis. Positive for shortness of breath as usual. CARDIOVASCULAR: No angina symptoms. No CHF symptoms. No atypical chest pain for CAD. No palpitations. No orthopnea.. GASTROINTESTINAL: No abdominal pain. No nausea or vomiting. No diarrhea or constipation. No hematemesis. No hematochezia. GENITOURINARY: No urgency. No frequency. No dysuria. No hematuria. No obstructive symptoms. No discharge. No pain. No significant abnormal bleeding. MUSCULOSKELETAL: No musculoskeletal pain; no joint swelling. NEUROLOGICAL: Awake, alert, oriented to time, place and person. No headache. No neck pain. No syncope. No seizures. No dizziness. PSYCHIATRIC: Not anxious. No depression. No suicidal thoughts. No homicidal thoughts. SKIN: No rash. No lesions. No wounds. ENDOCRINE: No unexplained weight loss. No weight gain. HEMATOLOGIC/LYMPHATIC: No anemia. No purpura. No petechiae. No prolonged or excessive bleeding. No palpable lymph nodes. PHYSICAL EXAMINATION: GENERAL: The patient is awake, alert and oriented, lying in bed in no distress. VITAL SIGNS: Temperature 97.1 F, Pulse 93, Respiratory Rate 20, BP 104/65, Pulse Ox 96% HEENT: Head normocephalic, atraumatic. Eyes: Extraocular muscles are intact. Pupils are equal, round and reactive to light and accommodation. Ears: No lesions. Nose appeared normal. Throat: No exudate or erythema. NECK: Supple. No JVD, no carotid bruit. No lymphadenopathy or thyromegaly. LUNGS: Diminished breath sounds with atrial fibrillation. Clear to auscultation. Percussion note normal. Chest symmetrical. HEART: Irregular heart rate consistent with atrial fibrillation. S1, S2, no S3. No murmurs. No cyanosis or clubbing. No ascites. Pulses: Dorsalis pedis and posterior tibial pulses +1 to +2 both sides. ABDOMEN: Soft. Non-tender. Bowel sounds active. No CVA tenderness. No mass felt. EXTREMITIES: No edema. Full range of motion of all extremities, equal. NEUROLOGIC: No focal deficit. Cranial nerves II through XII are grossly intact. No headache, no double vision or headache. SKIN: Not dry. Intact. Turgor-normal. LYMPHATIC: No palpable lymph nodes/no lymphedema. MUSCULOSKELETAL: Normal joints with no swelling. Muscle tone is normal. LAB REVIEW: 03/29/17 04:30 03/29/17 04:30 03/29/17 04:30: Magnesium 1.1 L 03/29/17 04:30: Sodium 137, Potassium 4.2, Chloride 101, Carbon Dioxide 22 L, Anion Gap 18.2, BUN 14, Creatinine 0.88, Estimated GFR (MDRD) 84.00, BUN/ Creatinine Ratio 15.90, Glucose 180 H, Calcium 7.2 L, Total Bilirubin 0.6, AST 14 L, ALT 11 L, Alkaline Phosphatase 118, Total Protein 7.0, Albumin 3.1 L, Globulin 3.9, Albumin/Globulin Ratio 0.79 03/29/17 04:30: WBC 9.35, RBC 3.62 L, Hgb 10.3 L, Hct 30.8 L, MCV 85.1, MCH 28.5 , MCHC 33.4, RDW Coeff of Jennifer 15.3 H, Plt Count 264, Immature Gran % (Auto) 1.0 , Neut % (Auto) 81.0, Lymph % (Auto) 11.0, [place] % (Auto) 6.8, Eos % (Auto) 0.1, Baso % (Auto) 0.1, Immature Gran # (Auto) 0.1, Neut # 7.6 H, Lymph # 1.0, [place] # 0.6, Eos # 0.0, Baso # 0.0 ASSESSMENT: Hypomagnesemia with symptoms History of atrial fibrillation Congestive heart failure Hypertension Dyslipidemia Anemia Low potassium level PLAN: 1. Tobramycin ophthalmic drops two drops t.i.d. 2. 1 cc Decadron daily 3. Mag Oxide 800 t.i.d. Plan and coordination of the patient's care discussed in the presence of Senior Research Fellow and nurse. CONDITION: Stable SCRIBED BY: KE HOOD National Coverage Specialist scribed while in presence of service performed by Dr. Parker/Aurelia Shirley APRN on 03/29/17 ([id number])
[2017-03-29] MEDS: XARELTO PO SCH (17:17)
[2017-03-29] MEDS: LIPITOR PO SCH (20:20)
[2017-03-29] MEDS: GLUCOPHAGE PO SCH (20:20)
[2017-03-29] MEDS: ASPIRIN EC PO SCH (20:20)
[2017-03-30 05:45] VITALS: BP 123/60; TEMP 97.8
[2017-03-30] MEDS: PROTONIX PO SCH (06:02)
[2017-03-30] MEDS: HUMULIN R SUBCUT PRN (06:02)
[2017-03-30] MEDS: SYNTHROID PO SCH ×2 (06:02)
[2017-03-30] MEDS: LASIX TAB PO SCH (06:02)
[2017-03-30] MEDS: COREG PO SCH (08:59)
[2017-03-30] MEDS: CARDIZEM PO SCH (08:59)
[2017-03-30] MEDS: XANAX PO SCH (08:59)
[2017-03-30] MEDS: K-DUR PO SCH ×2 (08:59→12:00)
[2017-03-30] MEDS: LANOXIN PO SCH (09:00)
[2017-03-30] MEDS: JANUVIA PO SCH (09:00)
[2017-03-30] MEDS: VITAMIN D PO SCH (09:01)
[2017-03-30] MEDS: ZYRTEC PO SCH (09:01)
[2017-03-30] MEDS: MAG-OX PO SCH (09:01)
[2017-03-30] MEDS: ZYLOPRIM PO SCH (09:02)
[2017-03-30] MEDS: ZESTRIL PO SCH (09:02)
[2017-03-30] MEDS: ZITHROMAX PO SCH (09:03)
[2017-03-30] MEDS: OLOPATADINE HCL 30.5 GM NS SCH (09:03)
[2017-03-30] MEDS: TOBREX 0.3% OP SCH (09:04)
[2017-03-30] MEDS: ARTIFICIAL TEARS OPTH SOL OP PRN (09:04)
[2017-03-30] MEDS: DECADRON 4 MG/ML SDV IM SCH (09:05)
[2017-03-30] MEDS: FLONASE NAS SCH (09:05)
[2017-03-30] MEDS: NON-FORMULARY MEDICATION (Mometasone/Formoterol [Dulera 200 Mcg/5 Mcg Inhaler] 2 PUFF) INH SCH (09:05)
--- NOTE | 2017-03-30 10:04 | PCM.PROG ---
Attending Provider: ATTENDING PROVIDER: Dr. HIRA PARKER This patient is seen with Aurelia Shirley, Nurse Practitioner. DATE OF SERVICE: 03/30/17 SUBJECTIVE: This 77 year old WHITE/ M was hospitalized 03/27/17. The patient is alert, lying in bed. Eye redness and drainage improved. No numbness or tingling. Magnesium level up to normal. The patient has been up and about and states he is ready to go home. REVIEW OF SYSTEMS: CONSTITUTIONAL: Weakness and fatigue. No night sweats. No malaise, lethargy. No fever or chills. HEENT: Eyes: No visual changes. No eye pain. No eye discharge. ENT: No runny nose. No epistaxis. No sinus pain. No odynophagia. No congestion. RESPIRATORY: No cough, no congestion. No hemoptysis. No shortness of breath. CARDIOVASCULAR: No angina symptoms. No CHF symptoms. No atypical chest pain for CAD. No palpitations. No orthopnea.. GASTROINTESTINAL: No abdominal pain. No nausea or vomiting. No diarrhea or constipation. No hematemesis. No hematochezia. GENITOURINARY: No urgency. No frequency. No dysuria. No hematuria. No obstructive symptoms. No discharge. No pain. No significant abnormal bleeding. MUSCULOSKELETAL: No musculoskeletal pain; no joint swelling. NEUROLOGICAL: Awake, alert, oriented to time, place and person. No headache. No neck pain. No syncope. No seizures. No dizziness. PSYCHIATRIC: Not anxious. No depression. No suicidal thoughts. No homicidal thoughts. SKIN: No rash. No lesions. No wounds. ENDOCRINE: No unexplained weight loss. No weight gain. HEMATOLOGIC/LYMPHATIC: No anemia. No purpura. No petechiae. No prolonged or excessive bleeding. No palpable lymph nodes. PHYSICAL EXAMINATION: GENERAL: The patient is awake, alert and oriented, lying in bed in no distress. VITAL SIGNS: Temperature 97.8 F, Pulse 80, Respiratory Rate 20, BP 123/60, Pulse Ox 99% HEENT: Head normocephalic, atraumatic. Eyes: Extraocular muscles are intact. Pupils are equal, round and reactive to light and accommodation. Ears: No lesions. Nose appeared normal. Throat: No exudate or erythema. NECK: Supple. No JVD, no carotid bruit. No lymphadenopathy or thyromegaly. LUNGS: Diminished breath sounds. Clear to auscultation. Percussion note normal. Chest symmetrical. HEART: Irregular heart rate. S1, S2, no S3. No murmurs. No cyanosis or clubbing. No ascites. Pulses: Dorsalis pedis and posterior tibial pulses +1 to +2 both sides. ABDOMEN: Soft. Non-tender. Bowel sounds active. No CVA tenderness. No mass felt. EXTREMITIES: No edema. Full range of motion of all extremities, equal. NEUROLOGIC: No focal deficit. Cranial nerves II through XII are grossly intact. No headache, no double vision or headache. SKIN: Not dry. Intact. Turgor-normal. LYMPHATIC: No palpable lymph nodes/no lymphedema. MUSCULOSKELETAL: Normal joints with no swelling. Muscle tone is normal. LAB REVIEW: 03/30/17 04:30 03/30/17 04:30 03/30/17 04:30: Sodium 139, Potassium 4.4, Chloride 103, Carbon Dioxide 21 L, Anion Gap 19.4, BUN 19 H, Creatinine 0.83, Estimated GFR (MDRD) 90.00, BUN/ Creatinine Ratio 22.89, Glucose 198 H, Calcium 7.8 L, Magnesium 1.6 L, Total Bilirubin 0.4, AST 13 L, ALT 12, Alkaline Phosphatase 109, Total Protein 7.1, Albumin 3.1 L, Globulin 4.0, Albumin/Globulin Ratio 0.78 03/30/17 04:30: WBC 15.24 H D, RBC 3.55 L, Hgb 10.1 L, Hct 30.4 L, MCV 85.6, MCH 28.5, MCHC 33.2, RDW Coeff of Jennifer 15.4 H, Plt Count 308, Immature Gran % ( Auto) 1.0, Neut % (Auto) 84.9, Lymph % (Auto) 9.3 L, [place] % (Auto) 4.6, Eos % ( Auto) 0.1, Baso % (Auto) 0.1, Immature Gran # (Auto) 0.2, Neut # 12.9 H, Lymph # 1.4, [place] # 0.7, Eos # 0.0, Baso # 0.0 ASSESSMENT: Hypomagnesemia with symptoms, resolved History of atrial fibrillation Congestive heart failure Hypertension Dyslipidemia Anemia Low potassium level, resolved Acute bilateral conjunctivitis, improving PLAN: 1. Discharge home. 2. Magnesium 800 mg daily. 3. Continue Tobramycin eye drops two drops t.i.d. times one week. 4. Home Health due to weakness. Plan and coordination of the patient's care discussed in the presence of Construction Project Manager and nurse. EDUCATION: The patient will have Home Health in the home setting for nursing assessment, PT /OT. The patient is agreeable. CONDITION: Stable SCRIBED BY: KE HOOD Kohinoor Operator scribed while in presence of service performed by Dr. Parker/Aurelia Shirley APRN on 03/30/17 ([id number])
--- NOTE | 2017-03-30 10:53 | CM.DICTOOL ---
ADMISSION: 03/27/17 23:27 DISCHARGE: 03/30/17 DATE OF SERVICE: 03/30/17 FINAL DIAGNOSIS HYPOMAGNESEMIA, REPLACED HYPOKALEMIA, REPLACED CONJUNCTIVITIS, TREATED COPD LVEF 25%, ECHO 10/12/16 ATRIAL FIBRILLATION, ON XARELTO CAD HYPERTENSION DYSLIPIDEMIA COPD ANEMIA DM, TYPE 2 HYPOTHYROIDISM GOUTY ARTHRITIS CHRONIC BACK PAIN/SCIATICA DEGENERATIVE DISC DISEASE - LUMBAR GERD ANXIETY/DEPRESSION ARTHRITIS LEFT FOREARM FRACTURE AND PINNING TOTAL LEFT KNEE ARTHROPLASTY CHOLECYSTECTOMY RIGHT CAROTID ENDARTERECTOMY, DR. MARVIN FORMER SMOKER NONE NOW LAST VITALS Temp Pulse Resp BP Pulse Ox 97.8 F 100 H 20 123/60 99 03/30/17 05:43 03/30/17 09:00 03/30/17 05:43 03/30/17 05:43 03/30/17 05:43 ACTIVE MEDICATIONS Albuterol Sulfate (Proventil Hfa) 6.7 gm IH Q6H PRN PRN Reason: Wheezing Allopurinol (Zyloprim) 100 mg PO DAILY [facility] Last Admin: 03/30/17 09:02 Dose: 100 mg Alprazolam (Xanax) 0.5 mg PO BID [facility] Last Admin: 03/30/17 08:59 Dose: 0.5 mg Aspirin (Aspirin Ec) 81 mg PO BEDTIME [facility] Last Admin: 03/29/17 20:20 Dose: 81 mg Atorvastatin Calcium (Lipitor) 40 mg PO BEDTIME [facility] Last Admin: 03/29/17 20:20 Dose: 40 mg Ca/D3/Mag Ox/Zinc/Wage Conciliator/Fausto/Bor (Calcium 60+D3 Plus Caplet 1 ea PO DAILY Carvedilol (Coreg) 12.5 mg PO BIDWM [facility] Last Admin: 03/30/17 08:59 Dose: 12.5 mg Cetirizine HCl (Zyrtec) 10 mg PO DAILY [facility] Last Admin: 03/30/17 09:01 Dose: 10 mg Cholecalciferol (Vitamin D) 1,000 unit PO DAILY [facility] Last Admin: 03/30/17 09:01 Dose: 1,000 unit Dexamethasone Sodium Phosphate (Decadron 4 Mg/Ml Sdv) 2 mg IM DAILY [facility] Last Admin: 03/30/17 09:05 Dose: 2 mg Digoxin (Lanoxin) 125 mcg PO DAILY [facility] Last Admin: 03/30/17 09:00 Dose: 125 mcg Diltiazem HCl (Cardizem) 60 mg PO Q12HR [facility] Last Admin: 03/30/17 08:59 Dose: 60 mg Fluticasone Propionate (Flonase) 1 spray RAO DAILY [facility] Last Admin: 03/30/17 09:05 Dose: 1 spray Furosemide (Lasix Tab) 40 mg PO QDAC [facility] Last Admin: 03/30/17 06:02 Dose: 40 mg Gabapentin (Neurontin) 100 mg PO Q8HR PRN PRN Reason: MODERATE PAIN Levothyroxine Sodium (Synthroid) 125 mcg PO QDAC [facility] Last Admin: 03/30/17 06:02 Dose: 125 mcg Lisinopril (Zestril) 5 mg PO DAILY [facility] Last Admin: 03/30/17 09:02 Dose: 5 mg Meclizine HCl (Antivert) 12.5 mg PO TID PRN PRN Reason: Dizziness Metformin HCl (Glucophage) 500 mg PO BEDTIME [facility] Last Admin: 03/29/17 20:20 Dose: 500 mg Mometasone/Formoterol [Dulera 200 Mcg/5 Mcg Inhaler] 2 puff INH BID [facility] Last Admin: 03/30/17 09:05 Dose: 2 puffs Olopatadine Hcl [Olopatadine Hcl] 30.5 gm NS DAILY [facility] Last Admin: 03/30/17 09:03 Dose: 30.5 gm Ondansetron HCl (Zofran Tab) 4 mg PO Q8H PRN PRN Reason: Nausea / Vomiting Pantoprazole Sodium (Protonix) 40 mg PO BIDAC [facility] Last Admin: 03/30/17 06:02 Dose: 40 mg Potassium Chloride (K-Dur) 20 meq PO TIDWM [facility] Last Admin: 03/30/17 08:59 Dose: 20 meq Rivaroxaban (Xarelto) 20 mg PO QPM [facility] Last Admin: 03/29/17 17:17 Dose: 20 mg Sitagliptin Phosphate (Januvia) 100 mg PO DAILY [facility] Last Admin: 03/30/17 09:00 Dose: 100 mg ALLERGIES hydrocodone [From [place]] Adverse Reaction (Verified 03/27/17 21:58) Rash NEW PRESCRIPTIONS: MAGNESIUM OXIDE 800 MG, TAKE ONE TABLET BY MOUTH DAILY FOR 30 DAYS TOBRAMYCIN (TOBREX 0.3%) APPLY TWO DROPS TO EACH EYE THREE TIMES DAILY FOR 7 DAYS SMOKING: FORMER SMOKER NONE NOW DISEASE SPECIFIC EDUCATION: HYPOMAGNESEMIA HYPOKALEMIA CONJUNCTIVITIS HOME MEDICATIONS NEW PRESCRIPTIONS PHYSICAL AND OCCUPATIONAL THERAPY IN THE OUTPATIENT SETTING USE OF ROLLING WALKER TO AMBULATE FOR SAFETY HOMEMAKING SERVICES FOLLOW UP LAB REVIEW: 03/30/17 04:30 03/30/17 04:30 03/30/17 04:30: Sodium 139, Potassium 4.4, Chloride 103, Carbon Dioxide 21 L, Anion Gap 19.4, BUN 19 H, Creatinine 0.83, Estimated GFR (MDRD) 90.00, BUN/ Creatinine Ratio 22.89, Glucose 198 H, Calcium 7.8 L, Magnesium 1.6 L, Total Bilirubin 0.4, AST 13 L, ALT 12, Alkaline Phosphatase 109, Total Protein 7.1, Albumin 3.1 L, Globulin 4.0, Albumin/Globulin Ratio 0.78 03/30/17 04:30: WBC 15.24 H D, RBC 3.55 L, Hgb 10.1 L, Hct 30.4 L, MCV 85.6, MCH 28.5, MCHC 33.2, RDW Coeff of Jennifer 15.4 H, Plt Count 308, Immature Gran % ( Auto) 1.0, Neut % (Auto) 84.9, Lymph % (Auto) 9.3 L, [place] % (Auto) 4.6, Eos % ( Auto) 0.1, Baso % (Auto) 0.1, Immature Gran # (Auto) 0.2, Neut # 12.9 H, Lymph # 1.4, [place] # 0.7, Eos # 0.0, Baso # 0.0 PLAN: DISCHARGE HOME TODAY RETURN TO SEE DR. PARKER IN HIS OFFICE ON 04/05/17 AT 10:30 A.M. COME TO OUTPATIENT PHYSICAL THERAPY AT [facility] ON 04/02/17 AT 1:30 P.M. RESUME YOUR HOME MEDICATIONS PER LIST PROVIDED BY THE NURSING STAFF NEW PRESCRIPTIONS MAGNESIUM OXIDE 800 MG, TAKE ONE TABLET BY MOUTH DAILY FOR 30 DAYS TOBRAMYCIN (TOBREX 0.3%) APPLY TWO DROPS TO EACH EYE THREE TIMES DAILY FOR 7 DAYS ACTIVITY GET PLENTY OF REST AT HOME. GRADUALLY INCREASE YOUR ACTIVITY LEVEL ACCORDING TO YOUR TOLERATION DIET CONSISTENT CARBS SUMMARY THE PATIENT IS ALERT AND ORIENTED X3. HE CURRENTLY RESIDES AT HOME WITH HIS SPOUSE. HIS SON IS SUPPORTIVE OF HIS NEEDS WHEN NECESSARY. HE HAS BEEN INDEPENDENT WITH ADL'S HE HAS RECENTLY BECOME MORE UNSTEADY ON HIS FEET AND IS MORE SAFE WITH USE OF A ROLLING WALKER. THE PATIENT REQUIRES ENCOURAGEMENT AND CONSTANT REMINDING TO USE HIS WALKER FOR SAFETY. HE WILL BENEFIT FROM HAVING PHYSICAL THERAPY/OCCUPATIONAL THERAPY IN THE OUTPATIENT SETTING. HE IS AGREEABLE TO RECEIVE THESE SERVICES. MR STACK HAS EXISTING OXYGEN AT HOME FOR USE AND A ROLLING WALKER MENTIONED ABOVE. HE DOES NOT QUALIFY FOR HOME HEALTH SINCE HE IS NOT HOME BOUND. HE HAS REQUESTED HOMEMAKING SERVICES BE CONTACTED, "[facility]LP AT HOME" TO ASSIST WITH WRAPPER STITCHER. HE HAS BEEN SCREENED FOR SERVICES BY [facility] BUT FOUND TO NOT QUALIFY FOR ASSISTANCE. HE TELLS US HE IS WILLING TO PRIVATE PAY FOR SERVICES. PER HIS REQUEST CASE MANAGEMENT HAS CONTACTED "[facility]LP AT HOME" TO GET IN TOUCH WITH MR. STACK FOR POSSIBLE SERVICES. THE SKIN TURGOR IS INTACT AND WITHOUT DECUBITUS ULCERS. HYDRATION AND NUTRITIONAL STATUS ARE VERY GOOD. MR. STACK HAS MADE GOOD CLINICAL PROGRESS DURING THIS HOSPITAL STAY. HE IS AWARE AND AGREEABLE FOR DISCHARGE PLANS TODAY. CURRENT CODE STATUS FULL CODE ALICIA HOGAN APRN HIRA PARKER M.D.
--- NOTE | 2017-04-03 14:35 | HP ---
DATE OF SERVICE: 03/27/17 REASON FOR HOSPITALIZATION/HISTORY OF PRESENT ILLNESS: Dizziness, numbness of the face. The patient had similar episode and went to [facility] and found magnesium level to be very low. The emergency room physician checked him out and didn't find anything much in the way of abnormality except for magnesium level less than 0.7. The patient was hospitalized with diagnosis of flu-type of symptoms with mild cough, congestion , tingling and numbness of the face. PAST MEDICAL HISTORY: Degenerative joint disease sees Dr. Valerio every 1 to 2 months for pain management Right sciatica History of CHF Atrial fibrillation on Xarelto Restless leg disease Diabetes mellitus Type 2 Anxiety disorder Atherosclerotic heart disease Dyslipidemia Obesity History of gout PAST SURGICAL HISTORY: Right carotid endarterectomy 09/2015 Left knee replacement Cholecystectomy REVIEW OF SYSTEMS: CONSTITUTIONAL: Weakness and fatigue. No night sweats. No malaise, lethargy. No fever or chills. HEENT: Eyes: No visual changes. No eye pain. No eye discharge. ENT: Nasal congestion. No epistaxis. No sinus pain. No sore throat. No odynophagia. No ear pain. No congestion. RESPIRATORY: Mild cough. No hemoptysis. Shortness of breath on exertion as usual. No PND. CARDIOVASCULAR: No angina symptoms. No CHF symptoms. No atypical chest pain for CAD. No palpitations. No orthopnea. GASTROINTESTINAL: No abdominal pain. No nausea or vomiting. No diarrhea or constipation. No hematemesis. No hematochezia. GENITOURINARY: No urgency. No frequency. No dysuria. No hematuria. No obstructive symptoms. No discharge. No pain. No significant abnormal bleeding. MUSCULOSKELETAL: No musculoskeletal pain. No joint swelling. No arthritis. NEUROLOGICAL: Numbness and tingling of the face. No weakness of the extremities. No problem with vision. No diplopia. No headache. No neck pain. No syncope. No seizures. No dizziness. PSYCHIATRIC: Not anxious. No depression. No suicidal thoughts. No homicidal thoughts. SKIN: No rash. No lesions. No wounds. ENDOCRINE: No unexplained weight loss. No weight gain. HEMATOLOGIC/LYMPHATIC: No anemia. No purpura. No petechiae. No prolonged or excessive bleeding. No palpable lymph nodes. PERSONAL/FAMILY/SOCIAL HISTORY: The patient is , lives with the . Nonsmoker. No alcohol abuse. He does all activities of daily living. MEDICATIONS: (HOME) K-Dur 20 mEq p.o. daily Januvia 100 mg p.o. daily Protonix 40 mg p.o. b.i.d. a.c. Zyrtec 10 mg p.o. daily Lasix 40 mg p.o. q.d a.c. Xarelto 20 mg p.o. daily Zestril 5 mg p.o. daily Metformin 500 mg p.o. bedtime Digoxin 125 mcg p.o. daily Synthroid 125 mcg p.o. daily Lipitor 40 mg p.o. daily Xanax 0.5 mg p.o. b.i.d. Allopurinol 100 mg p.o. daily Aspirin 81 mg p.o. bedtime Neurontin 100 mg p.o. q.8hr p.r.n. Cholecalciferol 1000 unit p.o. daily Ca/D3/Mag (x/Zinc/Caddy Packer/Fausto/Bor one each p.o. daily Cardizem 60 mg p.o. q.12hr Proventil Hfa 6.7 gm IH q.6h p.r.n. Flonase one spray NS daily Meclizine 12.5 mg p.o. t.i.d. p.r.n. Coreg 12.5 mg p.o. b.i.d. Zofran 4 mg p.o. q.8h p.r.n. Dulera 200 mcg/5 mcg inhaler two puff INH b.i.d. Olopatadine 30.5 gm NS daily Flagyl 500 mg p.o. as directed ALLERGIES: HYDROCODONE PHYSICAL EXAMINATION: GENERAL: The patient is oriented to time, place and person. Looks somewhat pale. VITAL SIGNS: Temperature 98, pulse 110/min, respiratory rate 20, BP 112/62, pulse ox 96%. HEENT: Head normocephalic, atraumatic. Face is symmetrical. Eyes: Extraocular muscles are intact. Pupils are equal, round and reactive to light and accommodation normally. Ears: No lesions. Nose appeared normal. Throat: No exudate or erythema. NECK: Supple. No JVD, no carotid bruit. No lymphadenopathy or thyromegaly. LUNGS: Decreased breath sounds but clear to auscultation. Percussion note normal. Chest symmetrical. HEART: S1, S2, no S3. No murmurs. No cyanosis or clubbing. No ascites. Pulses: Dorsalis pedis and posterior tibial pulses +1 bilaterally. ABDOMEN: Soft. Nontender. Bowel sounds active. No CVA tenderness. No mass felt. EXTREMITIES: No edema. Full range of motion of all extremities, equal. JUNIOR ESTIMATOR: Deep tendon reflexes, motor, sensory normal. Gait normal. Face is symmetrical. No neurological deficits noted. SKIN: Not dry. Intact. Turgor - normal. LYMPHATIC: No palpable lymph nodes/no lymphedema. MUSCULOSKELETAL: Normal joints with no swelling. Muscle tone is normal. LABS: Hemoglobin 10.4, hematocrit 31, WBC 11,000, normal differential. Creatinine 1.1 , BUN 14, magnesium less than 0.7. Troponin, CK all negative. Influenza A and B negative. ASSESSMENT: 1. SEVERE HYPOMAGNESEMIA 2. FLU TYPE OF SYMPTOMS 3. MILD LOW GRADE BRONCHITIS 4. NASAL CONGESTION 5. CONGESTIVE HEART FAILURE 6. ATRIAL FIBRILLATION 7. RIGHT CAROTID ENDARTERECTOMY 8. RIGHT SCIATICA 9. SEVERE DJD SPINE, FOLLOWED BY DR. VALERIO 10. CAROTID ENDARTERECTOMY WAS DONE IN SEPTEMBER 2015 11. DIABETES MELLITUS 12. BMI 28 13. RESTLESS LEG SYNDROME 14. GENERALIZED ANXIETY DISORDER 15. DYSLIPIDEMIA 16. HISTORY OF GOUT 17. GENERALIZED ATHEROSCLEROSIS PLAN: 1. Continue all medications that patient is on like, Lasix, Lanoxin, Allopurinol, Metoprolol, Lisinopril, Diltiazem, Levothyroxine, Xarelto, Januvia , Glucophage. 2. Will also give Magnesium IV supplement as ordered by the ER attending. 3. Telemetry. 4. Cardiac markers. 5. EKG. 6. Later on the patient was given Zithromax and steroids for his nasal congestion and bronchitis. CONDITION: Stable TIME SPENT: More than 70 minutes. [facility]
--- NOTE | 2017-04-03 14:39 | PN ---
DATE OF SERVICE: 03/29/17 SUBJECTIVE: The patient was seen and examined with the nurse practitioner 03/29/17. This is a 77-year-old white male hospitalized with hypomagnesemia. Still the level is 1.1, gave some more magnesium. We will give 800 mg three times a day. Also continue antibiotics and steroids. The patient is feeling a lot better. No evidence of CHF. CONDITION: Stable. TIME SPENT: More than 30 minutes. Plan and coordination of the patient's care discussed in the presence of nurse. LAYLA
--- NOTE | 2017-04-03 14:47 | PN ---
DATE OF SERVICE: 03/30/17 SUBJECTIVE: The patient is up and about. Magnesium level is acceptable. He will be discharged on magnesium supplements. He has no symptoms of CHF, CAD. His lungs are clear on auscultation. Hydration status is better. Arrhythmia is noted. CONDITION: Stable. The patient was seen and examined with nurse practitioner. TIME SPENT: More than 30 minutes. Plan and coordination of the patient's care discussed in the presence of nurse. LAYLA
--- NOTE | 2017-04-03 14:48 | PN ---
CODING FOR BILLING 03/27/17 LEVEL 5 03/28/17 INTERMEDIATE 03/29/17 INTERMEDIATE 03/30/17 DISCHARGE MTDD
--- NOTE | 2017-05-02 13:29 | DS ---
DATE OF SERVICE: 03/30/17 FINAL DIAGNOSIS: 1. HYPOMAGNESEMIA, REPLACED 2. HYPOKALEMIA, REPLACED 3. CONJUNCTIVITIS, TREATED 4. COPD 5. LVEF 25%, ECHO 10/12/16 6. ATRIAL FIBRILLATION, ON XARELTO 7. CAD 8. HYPERTENSION 9. DYSLIPIDEMIA 10. COPD 11. ANEMIA 12. DM, TYPE 2 13. HYPOTHYROIDISM 14. GOUTY ARTHRITIS 15. CHRONIC BACK PAIN/SCIATICA 16. DEGENERATIVE DISC DISEASE - LUMBAR 17. GERD 18. ANXIETY/DEPRESSION 19. ARTHRITIS 20. LEFT FOREARM FRACTURE AND PINNING 21. TOTAL LEFT KNEE ARTHROPLASTY 22. CHOLECYSTECTOMY 23. RIGHT CAROTID ENDARTERECTOMY, DR. MARVIN 24. FORMER SMOKER - NONE NOW DISCHARGE INSTRUCTIONS: Followup appointment with Dr. Ferguson in his office on 04/05/17 at 10:30 a.m. Come to outpatient physical therapy at [facility] for services on at 1:30 p.m. MEDICATIONS AT DISCHARGE: Proventil Hfa 6.7 gm IH q.6hr p.r.n. Zyloprim 100 mg p.o. daily SANDIE Xanax 0.5 mg p.o. b.i.d. SANDIE Aspirin 81 mg p.o.bedtime SANDIE Lipitor 40 mg p.o. bedtime SANDIE Ca/D3/Mag Ox/Zinc/Supervisor Composing Room/Fausto/Bor (calcium 60+D3 plus caplet one each p.o. daily Coreg 12.5 mg p.o. b.i.d. with meal SANDIE Zyrtec 10 mg p.o. daily SANDIE Vitamin D 1000 unit p.o. daily SANDIE Decadron 2 mg IM daily SANDIE Lanoxin 125 mcg p.o. daily SANDIE Cardizem 60 mg p.o. q.12hr SANDIE Flonase one spray RAO daily SANDIE Lasix 40 mg p.o. q.d a.c. SANDIE Neurontin 100 mg p.o. q.8hr p.r.n. Synthroid 125 mcg p.o. q.d a.c. SANDIE Zestril 5 mg p.o. daily SANDIE Antivert 12.5 mg p.o. t.i.d. p.r.n. Glucophage 500 mg p.o. bedtime SANDIE Mometasone/Formoterol two puff INH b.i.d. SANDIE Olopatadine HcI 30.5 gm NS daily [facility] Zofran 4 mg p.o. q.8h p.r.n. Protonix 40 mg p.o. b.i.d. a.c. SANDIE K-Dur 20 mEq p.o. t.i.d. with meal [facility] Xarelto 20 mg p.o. q.p.m. SANDIE Januvia 100 mg p.o. daily [facility] NEW PRESCRIPTIONS: Magnesium Oxide 800 mg take one tablet by mouth daily for 30 days Tobramycin apply two drops to each eye three times daily for 7 days DIET INSTRUCTIONS: Consistent carbs ACTIVITY: Get plenty of rest at home. Gradually increase your activity level according to your toleration. SMOKING: Former smoker None now DISEASE SPECIFIC EDUCATION: Hypomagnesemia Hypokalemia Conjunctivitis Home medications New prescriptions Physical and Occupational Therapy in the outpatient setting Use of rolling walker to ambulate for safety Homemaking services Follow Up HOSPITAL COURSE: This is a 77-year-old white male with a long history of CHF, COPD, atrial fibrillation, who has been in and out of the hospital in [place] several times recently. He has been home for approximately 2 weeks. He presented to the emergency room believing that his magnesium was low. He was having some numbness and tingling in his cheeks and his ears. His magnesium level was found to be 0.9. He was subsequently admitted, placed on mag-oxide 800 mg daily initially. His kidney function was normal. He was found to be anemic initially, which is normal for him. He did have some nasal congestion as well on admission and was given 1 cc of Decadron IM two days in a row and started on Zithromax 500 mg p.o. daily for three days. Over the course of a couple days his nasal congestion has improved. He did start complaining of some eye drainage and redness with yellow drainage from both eyes. His conjunctivae were both red so we started on Tobramycin ophthalmic drops two drops three times a day. These were started yesterday. Today, his eye redness has significantly improved. He did report a scant amount of drainage this morning although his eyes were not matted together as they had been the past several days. For the first two days he was on Mag-Oxide 800 mg p.o. daily. For 2 days in a row his levels stayed at 1.1. Yesterday we increased his Mag-Oxide level to 800 mg t.i.d. and his level jose to 1.6 today. He has been up and about on his own. He does wear oxygen at home and he has been up and about walking around with his oxygen. His shortness of breath is not a concern. He has no leg edema, no signs or symptoms of acute heart failure. He has been in atrial fib while he is here which is normal for him. He is on Xarelto. We will discharge him home in stable condition. Today his kidney function is good. His white count is slightly elevated at 15.24, this is thought to be due to 2 days of Decadron. Hemoglobin 10.1, hematocrit 30.4, platelets 308, sodium 139, potassium 4.4, magnesium 1.6, BUN 19, creatinine 0.83, glucose 198. Will discharge him home on Mag-Oxide 800 mg p.o. daily and continue the Tobramycin eyedrops t.i.d. for the next week. His vital signs have been stable today on day of discharge with 97.8 temperature , heart rate 80, respirations 20, BP 123/60, pulse ox 99% on 2L. His symptoms have resolved as he did present with symptomatic hypomagnesia. He seems to be significantly improved. Will follow him up in the office next week. The patient has exhibited some weakness especially due to recent hospitalization. He and his are both in poor health and live alone. We will try to get some assistance with Home Health through Case Management due to generalized weakness and chronic CHF. TIME SPENT: More than 60 minutes. LAYLA
== END 2017-03-30 12:50 | disposition home or self-care (01) | DRG 641 ==
LOC: ED 21:52 → MEDSURG B 23:27
PROVIDERS: ADMIT Internal Medicine; ATTEND Internal Medicine
DX: E83.42 Hypomagnesemia (principal); E87.6 Hypokalemia; H10.9 Unspecified conjunctivitis; J44.9 Chronic obstructive pulmonary disease, unspecified; I48.91 Unspecified atrial fibrillation; I25.10 Atherosclerotic heart disease of native coronary artery without angina pectoris; I10 Essential (primary) hypertension; E78.5 Hyperlipidemia, unspecified; D64.9 Anemia, unspecified; E11.9 Type 2 diabetes mellitus without complications; E03.9 Hypothyroidism, unspecified; M10.9 Gout, unspecified; M54.31 Sciatica, right side; M47.9 Spondylosis, unspecified; K21.9 Gastro-esophageal reflux disease without esophagitis; F41.1 Generalized anxiety disorder; J40 Bronchitis, not specified as acute or chronic; R09.81 Nasal congestion; I50.9 Heart failure, unspecified; G25.81 Restless legs syndrome; I70.91 Generalized atherosclerosis; Z87.891 Personal history of nicotine dependence
CPT/HCPCS: 36415; 80053; 82550; 82553; 82962; 83735; 84443; 84484; 85025; 87502; 87651; 93005; 93010; 96365; 96366; 99223; 99232; 99239; 99284

== ENCOUNTER 2017-04-02 13:36 | Outpatient (RCR) ==
--- NOTE | 2017-04-04 09:09 | RS.OPPTEV2 ---
Date of Note: 04/02/17 Visit #: 1 Date of Evaluation: 04/02/17 Payer Source: MEDICARE Surgery Performed?: No Treatment Diagnosis: gait disturbance, LBP, OA Prior Level of Function.....Patient was independent with: ADL's, Self Care, Work /Vocation, Caregiving, Ambulation/Mobility, Community Integration/Access Functional Limitations: Sleep, ADL's, Reaching, Pushing, Pulling, Lifting, Carrying, Standing, Bending, Ambulation, Community Access/Integration Current Subjective/complaints:: pt just dc from hospital last week. pt states he has been very weak due to recent illness and feels like he has been getting weaker over the last few months. pt states that he is exhausted just from getting here today. Treatment Side (optional): N/A *Precautions: fall precautions Medical History Medical History: Hypertension, COPD, Diabetes, CHF, Arthritis Medical History Comments:: afib, gout, depression Surgical History: Knee Replacement, Cholecystectomy Surgical History Comments:: R CEA Smoking Status: Never smoker Hx Home Medications: pt does not have a list of medications with him. pt states he was just dc from hospital. Patient's Goals: get stronger and be able to take care of self Pain Assessment - Pain Description Pain Location: low back pain Pain Description: Aching Current Pain Intensity: 1-2/10 Functional Outcome Measure Tinetti: 10 (64%) - G Codes & Severity Modifier G Codes & Modifier: mobility current CL. mobility goal CL. mobility dc CL Source of G Code score: tinetti score Observation - Observation Posture: Forward Head, Rounded Shoulders, Increased Thoracic Kyphosis, Decreased Lumbar Lordosis Handedness: Right Gait - Gait Pattern General Gait Pattern Observation: Crouched Gait, Decrease Stride Lngth (R), Decrease Stride Lngth (L) Gait Comments: pt amb with decreased step length, height as well as flexed posture. pt amb 40ft with CGA with rwx. pt with 1 episode of loss of balance required min assist to maintain balance. Advised pt to use rwx at home instead of walking stick. General Range of Motion: B shld flex and abd limited. otherwise WFL's Muscle Strength: BUE shld flex 3-/5, elbow flex/ext 4-/5. BLE hip flex 4-/5, knee flex/ext 4-/5, ankle Df/PF 4/5 Palpation Palpation Findings: Muscle Guarding (lumbar spine) Sensation - Sensation Right Upper Extremity: Intact/Normal Left Upper Extremity: Impaired Right Lower Extremity: Intact/Normal Left Lower Extremity: Impaired Comments: pt reports L hand n/t due to accident years ago, and LLE foot n/t Balance - Sitting Balance Static Sitting Balance: Good Dynamic Sitting Balance: Fair - Standing Balance Static Standing Balance: Poor Dynamic Standing Balance: Poor - Comments Balance Assessment Comments: Tinetti score 10/28, pt with flexed posture, increased lat sway, occasional scissoring Interventions - Exercise/Activities/Manual Therapy Exercises/Activities: pt unable to tolerate ex this visit due to decreased endurance Manual Therapy: na - Charges Timed Code Treatment Minutes: 52 Total Treatment Time: 64 Procedures billed for this date of service:: eval med EVALUATION COMPLEXITY LEVEL EVALUATION COMPLEXITY LEVEL: HISTORY: High (DM, HTN, CHF, COPD, OA), EXAM OF BODY SYSTEMS: Medium (balance, strength, gait ), CLINICAL PRESENTATION: Medium ( evolving), CLINICAL DECISION MAKING: Medium Assessment Assessment: pt presents with decreased strength, balance, gait ability and decreased endurance. pt fatigued with just getting to PT. pt endurance limits ability to perform ex. pt reports is extreme taxing effort to come in for PT. Feel pt would benefit from home health PT/OT due to decreased endurance and safety. Called and spoke with Sri at Dr. Ferguson's office and she stated they would arrange home health for patient when he comes in for appt on 04/05/17. Eval only at this time. Patient Education: Home Safety, Activity Modification Rehab Potential: Good Short Term Goals Goal #1: . Goal #2: . Goal #3: . Fdc Goals Goal #1: . Goal #2: . Goal #3: . Goal #4: . Plan - Treatment to be Provided Procedures: Patient Education Modalities: No Modalities - Treatment Plan Frequency: eval only Duration: One time treatment ORDER # VISITS AND/OR THROUGH DATE: 04/02/17 - Treatment Code (1) Gait disturbance Code(s): R26.9 - UNSPECIFIED ABNORMALITIES OF GAIT AND MOBILITY (2) Osteoarthritis Code(s): M19.90 - UNSPECIFIED OSTEOARTHRITIS, UNSPECIFIED SITE Qualifiers: Osteoarthritis location: unspecified site Osteoarthritis type: unspecified Qualified Code(s): M19.90 - Unspecified osteoarthritis, unspecified site (3) Lumbar degenerative disc disease Code(s): M51.36 - OTHER INTERVERTEBRAL DISC DEGENERATION, LUMBAR REGION
== END 2017-04-25 ==
PROVIDERS: ATTEND Internal Medicine
DX: R26.9 Unspecified abnormalities of gait and mobility (principal); M51.36 Other intervertebral disc degeneration, lumbar region; M19.90 Unspecified osteoarthritis, unspecified site

== ENCOUNTER 2021-05-15 04:15 | Observation (INO) ==
[~2021-05-15 04:15] MED LIST: SODIUM CHLORIDE 1,000 ML IV STA
--- NOTE | 2021-05-15 04:24 | ED.PDOC ---
General ED Provider: Dr. MARY EPSTEIN Chief Complaint: Fall Stated Complaint: fell asleep in his recliner tonight. Woke up to go to bed and he became weak and fell hitting lft anterior lower rib. Came in to see if he broke a rib 4 weeks ago today he did the same thing and came her and had right posterior / lateral lower 7th rib fx. This past sun or he fell again but didnt come in saying he didnt hurt anything. No hx of seeing black or bloody stool but he says he doesnt pay much attention . Report nl colonoscopy about 10 yrs. Denies striking head .No headache , chest pain , back pain abdomen pain ,pelvic pain ,hip pain . Left patella is sore - prior hardware placed. Took 20 mg xarelto am yesterday / 81 mg asa yesterday PM For a fib and CAD ?( denies stent ) Time Seen by Provider: 05/15/21 04:24 Mode of Arrival: Wheelchair Information Source: Patient Exam Limitations: No limitations Primary Care Provider: HIRA PARKER Nursing and Triage Documentation Reviewed and Agree: Yes Does patient meet sepsis criteria?: No System Inflammatory Response Syndrome: Not Applicable Sepsis Protocol: For patient's 13 years and over: Temp is 96.8 and below OR 101 and greater Pulse >90 BPM Resp >20/minute Acutely Altered Mental Status Are patient's symptoms suggestive of a new infection, such as: -Pneumonia -Skin, Soft Tissue -Endocarditis -UTI -Bone, Joint Infection -Implantable Device -Acute Abdominal Infection -Wound Infection -Meningitis -Blood Stream Catheter Infection -Unknown Trauma/Injury Complaint Exam Truncal Trauma Complaint/Exam Location of Pain: 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 present Onset of Pain: Reports Immediate Initial Severity: Mild Current Severity: Mild Mechanism: Reports Blunt trauma Aggravating: Reports Movement Alleviating: Reports Rest Associated Signs and Symptoms: Denies Short of air, Chest pain, Cough, Hematuria, Abdominal pain, Fever, Nausea or Vomiting Related History: Reports Similar episode, Anticoagulants, Prior rib fracture and Heart Disease Related Surgical History: Denies CABG, Thoracotomy or Pneumonectomy Vertebral Tenderness Present: No Trachial Deviation Present: No JVD Present: No Crepitus Present: No Diminished Breath Sounds: No Reproducible Pain at: left anterior lower rib Muffled Heart Sounds Present: No Paradoxical Chest Wall Movement Present: No Abdominal Guarding Present: No Abdominal Rigidity Present: No Referred Shoulder Pain (Kehr's Sign) Present: No Skin Findings: Present Normal findings Differential Diagnoses: Chest Wall Contusion and Rib Fracture Review of Systems Review Of Systems Constitutional: Reports Weakness (past 4 weeks ) Eyes: Reports No symptoms Ears, Nose, Mouth, Throat: Reports No symptoms Respiratory: Reports No symptoms Cardiac: Reports No symptoms GI: Reports No symptoms : Reports No symptoms Musculoskeletal: Reports Other (right rib fx 7th 4 weeks ago ) Skin: Reports No symptoms Neurological: Reports No symptoms Endocrine: Reports No symptoms Hematologic/Lymphatic: Reports No symptoms (hgb 14mg Dec 2-) All Other Systems: Reviewed and Negative [facility] Social History Smoking and tobacco status: Never smoker Additional Medical History: atrial fib / pacer - defib ,left patella hardware ,CHF , CAD Physical Exam Physical Exam Appearance: Reports Ill-appearing (some pale ) Ill-appearing: Moderate Pain Distress: Mild Eyes: Reports VISHAL, EOMI and Conjunctiva clear ENT: Reports Ears normal, Nose normal, Oropharynx normal, Dry mucosa and Other (conjunctiva pale ) Neck: Supple Respiratory: Reports Airway patent, Breath sounds clear and Breath sounds equal; Denies Crackles, Rhonchi or Wheezes Cardiovascular: Reports RRR (paced ) GI/: Reports Soft, Nontender and No masses; Denies Tender or Mass Musculoskeletal: Reports Normal strength Skin: Reports Warm, Dry and Pale; Denies Diaphoretic or Cyanotic Neurological: Reports Sensation intact, Motor intact, Cranial nerves intact, Alert and Oriented Psychiatric: Reports Affect appropriate and Mood appropriate Interpretation Radiology Interpretation Radiology Interpretation By: Radiologist Exam Interpreted: CXR Xray Comments: no new rib fx prior rt 7th no pneumo no subdiphragmatic free air EKG Interpretation Time of EKG #1: 05:00 Rate: Normal Rhythm: Other (paced ) Interpretation: pac / paced Critical Care Note Critical Care Note Total Critical Care Time (mins): 20 Comments: Hx / primary exam / Orders - pt placed supine bp improved / 100ml medica crystalolid bolus - map 75 102/63 p 73 =100RA l IV ,100ml saline bolus / labs / portable image no pneumo or free air / secondary exam / additional hx / literature check / chart check / patient agrees with blood / perirectal check - protonix 80 precautionary / rectal exterior exam suspicious for melana- specimen sent / Kcentra not administered as this appears as a gradual anemia. In addition, patient reports not being a candidate in the past possibly for coronary stent due to potential risks along with having hx a fibrillation. 2nd IV & 1st unit PRBC started at 0720 MAP 72 pt comfortable awake. !st transfer call to higher level - no beds. Pt advised / Requested two units due to lack of regional bed availability / Patient SBAR to Dr Polk / intoduced to patient at shift change. Second hospital being contacted Course Course Hematology/Chemistry: 05/15/21 04:50 05/15/21 04:50 Orders, Labs, Meds: Lab Review 05/15/21 05/15/21 05/15/21 04:50 04:50 04:50 WBC 6.42 RBC 2.23 L Hgb 6.7 L Hct 21.5 L MCV 96.4 H MCH 30.0 MCHC 31.2 L RDW Coeff of Jennifer 15.2 H Plt Count 272 Immature Gran % (Auto) 1.1 Neut % (Auto) 56.1 Lymph % (Auto) 28.0 [place] % (Auto) 10.0 Eos % (Auto) 4.0 Baso % (Auto) 0.8 Neut # (Auto) 3.6 Lymph # (Auto) 1.8 [place] # (Auto) 0.6 Eos # (Auto) 0.3 Baso # (Auto) 0.1 Immature Gran # (Auto) 0.1 PT 14.0 H INR 1.37 APTT 30.1 Sodium 139.1 Potassium 4.31 Chloride 108.3 H Carbon Dioxide 21.2 L Anion Gap 13.91 BUN 42.3 H Creatinine 1.68 H Estimated GFR (MDRD) 40.00 BUN/Creatinine Ratio 25.17 Glucose 106.9 H Calcium 8.09 L Total Bilirubin 0.32 AST 22.2 ALT 13.8 Alkaline Phosphatase 114.6 Troponin I < 0.012 NT-Pro-B Natriuret Pep Total Protein 6.40 Albumin 3.96 Globulin 2.44 Albumin/Globulin Ratio 1.62 Stl Occult Blood (IFOB) Stool Occult Blood #2 Stool Occult Blood #3 Adenovirus (PCR) B. pertussis DNA (PCR) B.parapertussis DNA PCR C. pneumoniae DNA (PCR) Coronavirus OC43 (PCR) Coronavirus HKU1 (PCR) Coronavirus 229E (PCR) Coronavirus NL63 (PCR) Human Metapneumovir PCR Influenza Type A (PCR) Influenza B (RT-PCR) M. pneumoniae (PCR) Parainfluenza 1 (PCR) Parainfluenza 2 (PCR) Parainfluenza 3 (PCR) Parainfluenza 4 (PCR) RSV (PCR) Entero/Rhino (PCR) SARS-CoV-2 (PCR) Blood Type Antibody Screen Crossmatch (AHG) 05/15/21 05/15/21 05/15/21 04:50 04:50 05:26 WBC RBC Hgb Hct MCV MCH MCHC RDW Coeff of Jennifer Plt Count Immature Gran % (Auto) Neut % (Auto) Lymph % (Auto) [place] % (Auto) Eos % (Auto) Baso % (Auto) Neut # (Auto) Lymph # (Auto) [place] # (Auto) Eos # (Auto) Baso # (Auto) Immature Gran # (Auto) PT INR APTT Sodium Potassium Chloride Carbon Dioxide Anion Gap BUN Creatinine Estimated GFR (MDRD) BUN/Creatinine Ratio Glucose Calcium Total Bilirubin AST ALT Alkaline Phosphatase Troponin I NT-Pro-B Natriuret Pep 411.000 H Total Protein Albumin Globulin Albumin/Globulin Ratio Stl Occult Blood (IFOB) Stool Occult Blood #2 Stool Occult Blood #3 Adenovirus (PCR) B. pertussis DNA (PCR) B.parapertussis DNA PCR C. pneumoniae DNA (PCR) Coronavirus OC43 (PCR) Coronavirus HKU1 (PCR) Coronavirus 229E (PCR) Coronavirus NL63 (PCR) Human Metapneumovir PCR Influenza Type A (PCR) Influenza B (RT-PCR) M. pneumoniae (PCR) Parainfluenza 1 (PCR) Parainfluenza 2 (PCR) Parainfluenza 3 (PCR) Parainfluenza 4 (PCR) RSV (PCR) Entero/Rhino (PCR) SARS-CoV-2 (PCR) Blood Type O POSITIVE O POSITIVE Antibody Screen Negative Crossmatch (G) See Detail 05/15/21 05/15/21 05:35 06:00 WBC RBC Hgb Hct MCV MCH MCHC RDW Coeff of Jennifer Plt Count Immature Gran % (Auto) Neut % (Auto) Lymph % (Auto) [place] % (Auto) Eos % (Auto) Baso % (Auto) Neut # (Auto) Lymph # (Auto) [place] # (Auto) Eos # (Auto) Baso # (Auto) Immature Gran # (Auto) PT INR APTT Sodium Potassium Chloride Carbon Dioxide Anion Gap BUN Creatinine Estimated GFR (MDRD) BUN/Creatinine Ratio Glucose Calcium Total Bilirubin AST ALT Alkaline Phosphatase Troponin I NT-Pro-B Natriuret Pep Total Protein Albumin Globulin Albumin/Globulin Ratio Stl Occult Blood (IFOB) Positive Stool Occult Blood #2 Pending Stool Occult Blood #3 Pending Adenovirus (PCR) Not detected B. pertussis DNA (PCR) Not detected B.parapertussis DNA PCR Not detected C. pneumoniae DNA (PCR) Not detected Coronavirus OC43 (PCR) Not detected Coronavirus HKU1 (PCR) Not detected Coronavirus 229E (PCR) Not detected Coronavirus NL63 (PCR) Not detected Human Metapneumovir PCR Not detected Influenza Type A (PCR) Not detected Influenza B (RT-PCR) Not detected M. pneumoniae (PCR) Not detected Parainfluenza 1 (PCR) Not detected Parainfluenza 2 (PCR) Not detected Parainfluenza 3 (PCR) Not detected Parainfluenza 4 (PCR) Not detected RSV (PCR) Not detected Entero/Rhino (PCR) Not detected SARS-CoV-2 (PCR) Not detected Blood Type Antibody Screen Crossmatch (AHG) Orders Category Date Time Status EKG-(ED ONLY) Stat CARDIO 05/15/21 04:45 Completed NPO [NOTHING BY MOUTH] DIETARY 05/15/21 Breakfast Ordered Blood Sugar [ED ACCUCHECK ASSESSMENT] .ONCE EMERGENCY 05/15/21 04:45 Active ED STEEPING PRESS TENDER APPLIED .ONCE EMERGENCY 05/15/21 04:50 Active ED IV/MEDIPORT/POWERPORT .ONCE EMERGENCY 05/15/21 04:45 Active O2 [ED APPLY O2] .ONCE EMERGENCY 05/15/21 04:50 Active CBC W/ AUTO DIFF Stat LAB 05/15/21 04:50 Completed CMP [COMPREHENSIVE METABOLIC PANEL] Stat LAB 05/15/21 04:50 Completed HEMOCCULT [OCCULT BLOOD, STOOL] Stat LAB 05/15/21 05:35 Results NT-PROBNP Stat LAB 05/15/21 04:50 Completed PARTIAL THROMBOPLASTIN TIME Stat LAB 05/15/21 04:50 Completed PT WITH INR Stat LAB 05/15/21 04:50 Completed Packed Red Blood Cells [PACKED CELLS] Stat LAB 05/15/21 04:50 Results RESPIRATORY PANEL 2.1 (PCR) Stat LAB 05/15/21 06:00 Completed TROPONIN I Stat LAB 05/15/21 04:50 Completed TYPE AND SCREEN Stat LAB 05/15/21 04:50 Results 0.9 % Sodium Chloride [Saline Flush] MEDS 05/15/21 04:45 Active 1 syr IVF PRN PRN Pantoprazole Sodium [Protonix IV] MEDS 05/15/21 05:25 Discontinued 80 mg IVP ONCE STA Sodium Chloride 0.9% [Sodium Chloride] 1,000 ml MEDS 05/15/21 06:04 Active IV 50 mls/hr Sodium Chloride 0.9% [Sodium Chloride] 1,000 ml MEDS 05/15/21 04:45 Discontinued IV BOLUS Sodium Chloride 0.9% [Sodium Chloride] 500 ml MEDS 05/15/21 06:12 Active IV BOLUS CHEST, 1V AP ONLY Stat RADS 05/15/21 04:36 Completed CHEST, 1V AP ONLY Stat RADS 05/15/21 04:45 Ordered KNEE, LEFT 1 OR 2 VIEWS Stat RADS 05/15/21 05:39 Completed Medications Generic Name Dose Route Start Last Admin Trade Name Freq PRN Reason Stop Dose Admin Sodium Chloride 1,000 mls @ 50 mls/hr 05/15/21 06:04 05/15/21 06:30 Sodium Chloride IV 05/16/21 02:03 50 mls/hr .Q20H STA Administration Sodium Chloride 500 mls @ 100 mls/hr 05/15/21 06:12 05/15/21 06:30 Sodium Chloride IV 05/15/21 11:11 Not Given BOLUS STA Sodium Chloride 1 syr 05/15/21 04:45 0.9% Sodium Chloride 10 Ml Disp.Syrin IVF PRN PRN To flush IV Discontinued Medications Generic Name Dose Route Start Last Admin Trade Name Freq PRN Reason Stop Dose Admin Sodium Chloride 1,000 mls @ 500 mls/min 05/15/21 04:45 05/15/21 05:22 Sodium Chloride IV 05/15/21 04:46 500 mls/min BOLUS STA Administration Pantoprazole Sodium 80 mg 05/15/21 05:25 05/15/21 05:39 Pantoprazole Sodium 40 Mg Vial IVP 05/15/21 05:26 80 mg ONCE STA Administration Vital Signs: Temp Pulse Resp BP Pulse Ox 05/15/21 07:16 97.8 F 70 16 108/61 05/15/21 04:36 73/49 L 05/15/21 04:35 84/50 L 05/15/21 04:34 83/55 L 05/15/21 04:15 97.5 F L 70 18 84/48 L 98 Discharge Plan Discharge Prescriptions: No Action cholecalciferol (vitamin D3) 1,000 UNIT capsule 1,000 unit PO DAILY 0RF albuterol sulfate [Proventil HFA] 6.7 GM HFA aerosol inhaler 6.7 g inhalation Q6H PRN (Reason: Wheezing) Qty: 1 0RF Rx Instructions: TAKE TWO PUFFS EVERY 6 HOURS NEEDED (PRN) FOR WHEEZING AND SHORTNESS OF BREATH fluticasone propionate 1 SPRAY spray,suspension 1 spray NS DAILY PRN (Reason: ALLERGIES) 0RF olopatadine 30.5 GM spray,non-aerosol 30.5 g NS DAILY PRN (Reason: ALLERGIES) 0RF Dulera 8.8 GM HFA aerosol inhaler 2 puff INH BID PRN (Reason: SOB/WHEEZING) 0RF magnesium oxide 400 MG tablet 800 mg PO DAILY Qty: 30 0RF furosemide [Lasix] 40 mg Tablet 40 mg PO DAILY PRN (Reason: EXT SWELLING) 0RF Rx Instructions: MAY TAKE ONCE A DAY NEEDED FOR EXTREMITY SWELLING/WT GAIN OF 3 POUNDS OR MORE carvedilol 25 mg Tablet 25 mg PO BID 0RF Rx Instructions: must administer with a meal/food lisinopril 20 mg Tablet 20 mg PO DAILY 0RF diltiazem HCl 240 mg Capsule,Extended Release 24 Hr 240 mg PO DAILY 0RF Trulicity 1.5 mg/0.5 mL pen injector 1.5 mg SUBCUT DAILY 0RF ondansetron 4 mg tablet,disintegrating 4 mg PO Q6H PRN (Reason: nausea and vomiting) Qty: 12 1RF tramadol 50 mg tablet 50 mg PO Q6H PRN (Reason: pain) Qty: 20 0RF furosemide 40 MG tablet 40 mg PO QDAC 0RF atorvastatin [Lipitor] 40 MG tablet 40 mg PO DAILY 0RF metformin 500 MG tablet 500 mg PO BEDTIME 0RF cetirizine 10 MG tablet 10 mg PO DAILY 0RF allopurinol 100 MG tablet 100 mg PO DAILY 0RF aspirin 81 MG tablet,delayed release (DR/EC) 81 mg PO BEDTIME 0RF alprazolam 0.5 MG tablet 0.5 mg PO BID 0RF potassium chloride [Klor-Con M20] 20 MEQ tablet,ER particles/crystals 20 meq PO DAILY 0RF pantoprazole 40 MG tablet,delayed release (DR/EC) 40 mg PO BIDAC 0RF levothyroxine [Synthroid] 125 MCG tablet 125 mcg PO DAILY 0RF Januvia 100 MG tablet 100 mg PO DAILY 0RF Xarelto 20 MG tablet 20 mg PO DAILY 0RF ferrous sulfate 325 MG tablet 325 mg PO DAILY 0RF ED Provider: MARY EPSTEIN Physician Progress Note: []BUN was 12 in Oct - in Nov and toay it is 44 with mild elevation of creatinine. Plan initiate transfusion when ready and call higher level center with covid result / heme. BNP 404 last Dec was 702. No dyspnea or rales Saline at 50ml/ hr
[2021-05-15] MEDS ORDERED: SODIUM CHLORIDE 1,000 ML IV STA ×2 (04:45→06:04)
--- NOTE | 2021-05-15 05:05 | DI ---
EXAM: Chest, single view HISTORY: Fall COMPARISON: 04/17/2021. FINDINGS / IMPRESSION: Left-sided pacer device in place. Cardiomediastinal countours appear stable. There is no focal pulmonary consolidation. No pleural effusion or pneumothorax. No acute cardiopulmonary process.
[2021-05-15 05:10] LABS: BASOPHILS # (AUTO) 0.1 K/uL (0-0.2); BASOPHILS % (AUTO) 0.8 % (0.0-3.0); EOSINOPHILS # (AUTO) 0.3 K/ul (0.0-0.7); HEMATOCRIT 21.5 % (42.0-52.0); HEMOGLOBIN 6.7 g/dl (14.0-18.0); IMMATURE GRANULOCYTE # (AUTO) 0.1 (0.0-1.0); IMMATURE GRANULOCYTE % (AUTO) 1.1 % (0.0-5.0); LYMPHOCYTES # (AUTO) 1.8 K/uL (0.60-3.4); MEAN CORPUSCULAR HGB CONC 31.2 (31.8-35.4); MEAN CORPUSCULAR VOLUME 96.4 fl (80.0-94.0); MONOCYTES # (AUTO) 0.6 K/uL (0.4-2.0); NEUTROPHILS # (AUTO) 3.6 K/ul (2.0-6.9); NEUTROPHILS % (AUTO) 56.1 % (42.2-75.2); PLATELET COUNT 272 10^3/uL (140-440); RDW COEFFICIENT OF VARIATION 15.2 % (11.6-14.8); RED BLOOD COUNT 2.23 10^6/ul (4.70-6.10); WHITE BLOOD COUNT 6.42 K/ul (4.2-10.2)
[2021-05-15 05:23] LABS: ALANINE AMINOTRANSFERASE 13.8 U/L (0-50); ALBUMIN 3.96 g/dL (3.5-5.0); ALKALINE PHOSPHATASE 114.6 U/L (56-119); ASPARTATE AMINO TRANSFERASE 22.2 U/L (17-59); BILIRUBIN,TOTAL 0.32 mg/dL (0.2-1.3); BLOOD UREA NITROGEN 42.3 mg/dL (9-20); CALCIUM 8.09 mg/dL (8.4-10.2); CARBON DIOXIDE 21.2 mmol/L (22-30.0); CHLORIDE 108.3 mmol/L (98-107); CREATININE 1.68 mg/dL (0.60-1.10); GLUCOSE 106.9 mg/dL (74-106); POTASSIUM 4.31 mmol/L (3.5-5.1); SODIUM 139.1 mmol/L (134.5-145)
[2021-05-15] MEDS ORDERED: PROTONIX IV IVP STA (05:25)
[2021-05-15 05:36] LABS: TROPONIN I < 0.012 ng/ml (0.0000-0.120)
[2021-05-15 05:38] LABS: PARTIAL THROMBOPLASTIN TIME 30.1 SEC (23.9-40.0)
[2021-05-15 06:08] LABS: OCCULT BLOOD SAMPLE 1 POSITIVE (NEGATIVE)
[2021-05-15] MEDS ORDERED: SODIUM CHLORIDE 500 ML IV STA (06:12)
--- NOTE | 2021-05-15 06:20 | DI ---
EXAM: Left knee, two views HISTORY: Fall COMPARISON: None. FINDINGS / IMPRESSION: Left knee arthroplasty is in place. Hardware appears well positioned. The v isualized osseous structures a show no acute fracture. Small bony fragment adjacent to the proximal patella appears chronic. No acute osseous or hardware abnormality.
[2021-05-15 06:43] LABS: ADENOVIRUS (PCR) NOT DETECTED (NOT DETECT); BORDETELLA PARAPERTUSSIS (PCR) NOT DETECTED (NOT DETECT); BORDETELLA PERTUSSIS (PCR) NOT DETECTED (NOT DETECT); CHLAMYDIA PNEUMONIAE (PCR) NOT DETECTED (NOT DETECT); CORONAVIRUS 229E (PCR) NOT DETECTED (NOT DETECT); CORONAVIRUS HKU1 (PCR) NOT DETECTED (NOT DETECT); CORONAVIRUS NL63 (PCR) NOT DETECTED (NOT DETECT); CORONAVIRUS OC43 (PCR) NOT DETECTED (NOT DETECT); HUMAN METAPNEUMOVIRUS (PCR) NOT DETECTED (NOT DETECT); HUMAN RHINOVIRUS/ENTEROV (PCR) NOT DETECTED (NOT DETECT); INFLUENZA B (PCR) NOT DETECTED (NOT DETECT); MYCOPLASMA PNEUMONIAE (PCR) NOT DETECTED (NOT DETECT); PARAINFLUENZA VIRUS 1 (PCR) NOT DETECTED (NOT DETECT); PARAINFLUENZA VIRUS 2 (PCR) NOT DETECTED (NOT DETECT); PARAINFLUENZA VIRUS 3 (PCR) NOT DETECTED (NOT DETECT); PARAINFLUENZA VIRUS 4 (PCR) NOT DETECTED (NOT DETECT); RESPIRATORY SYNCYTIAL V (PCR) NOT DETECTED (NOT DETECT); SARS_COV_2 (PCR) NOT DETECTED (NOT DETECT)
--- NOTE | 2021-05-15 11:42 | CT ---
EXAM: CT of the chest without contrast. HISTORY: Multiple falls. Anemia. COMPARISON: None. TECHNIQUE: Contiguous axial images were obtained from the lung apices to the upper abdomen at 3 mm i ntervals. Soft tissue and lung algorithm images were reviewed. The study was performed without cont rast IV contrast. Sagittal and coronal reformats were reviewed. CONTRAST: None FINDINGS: LUNGS/AIRWAYS: The lung windows show no lobar consolidation or effusion. There are no suspicious pulmonary nodules. The pulmonary interstitium is normal. The airways are widely patent. There is no pleural thickening. HEART: The heart size is within normal limits. Coronary artery and aortic valve calcifications are s een. Left-sided cardiac pacer. MEDIASTINUM/JUDY: There is no significant mediastinal adenopathy or hilar adenopathy. CHEST WALL/THORACIC INLET: No masses or adenopathy. OSSEUS STRUCTURES: Normal for age. UPPER ABDOMEN: Limited views of the upper abdomen are available. ADDITIONAL FINDINGS: None IMPRESSION: 1. No acute pulmonary disease. 2. Coronary artery calcifications. All CT scans are performed using dose optimization techniques as appropriate to the performed exam an d include at least one of the following: Automated exposure control, adjustment of the mA and/or kV according t o size, and the use of iterative reconstruction technique.
--- NOTE | 2021-05-15 11:44 | CT ---
EXAM: CT brain without contrast HISTORY: Multiple falls, anemia TECHNIQUE: Multi-slice sequential. Coronal and sagittal reformations were performed. COMPARISON: 03/27/2017. FINDINGS: There is no acute intracranial hemorrhage, extraxial fluid collection, mass affect, or midlineshift. Small area of encephalomalacia at the right parietal lobe appears unchanged. There is mild diffuse sulcal prominence. Ventricular prominence is consistent with the degree of parenchymal volume loss. Periventricular white matter hypodensity is seen. Intracranial atherosclerosis is present. The bas al cisterns are patent. No large vascular territory area of hypodensity is seen within the brain. T he calvarium is unremarkable. Visualized paranasal sinuses are clear. Mastoid air cells are clear. :::::::::::::::::::::::::::::: IMPRESSION: 1. No acute intracranial findings. 2. Unchanged right parietal lobe encephalomalacia, atrophy, and small vessel ischemic disease. :::::::::::::::::::::::::::::: All CT scans are performed using dose optimization techniques as appropriate to the performed exam an d include at least one of the following: Automated exposure control, adjustment of the mA and/or kV according t o size, and the use of iterative reconstruction technique.
--- NOTE | 2021-05-15 11:46 | CT ---
EXAM: Noncontrast CT of the abdomen and pelvis. HISTORY: Multiple falls. Anemia. COMPARISON: 03/10/2020 TECHNIQUE: Contiguous axial images at 3 mm intervals were obtained from lung bases through the pelvi s. No contrast was given. Coronal reformats were reviewed. FINDINGS: The study is limited without contrast. CHEST: LUNG BASES: The lung bases show no lobar consolidation or effusion. HEART: The heart size is within normal limits. ABDOMEN: Evaluation of the soft tissue organs is limited without contrast. LIVER: Noncontrast images of the liver show no solid mass lesion or intrahepatic ductal dilatation. BILIARY: The gallbladder is absent. There are clips in the gallbladder fossa. No fluid. The comm on bile duct is normal. SPLEEN: The spleen is unremarkable. PANCREAS: The pancreas shows no mass lesion or peripancreatic inflammation. ADRENAL GLANDS: The adrenal glands are normal. RENAL: The kidneys show no hydronephrosis or nephrolithiasis. There are no obstructing ureteral st ones. No solid mass lesions are identified. AORTA: Heavy aortic calcifications are seen. No aneurysm is identified. RETROPERITONEUM: There is no retroperitoneal or mesenteric adenopathy. BOWEL: The bowel is unopacified. There is no obstruction or inflammatory change. There is no free fluid or free air. No significant inflammatory changes are seen. Extensive sigmoid diverticulosis without evidence of acute diverticulitis. The appendix is identified and is normal. PELVIS: BLADDER: The bladder is well distended and appears normal. GENITOURINARY STRUCTURES: Unremarkable. OSSEOUS STRUCTURES: Disc narrowing osteophyte formation is seen at all levels of the spine. Scolios is to the left. Bilateral sacroiliitis, right greater left. IMPRESSION 1. Limited study without contrast.No acute intra-abdominal abnormality. No obstructing ureteral sto liz. 2. The appendix is normal. 3. Extensive sigmoid diverticulosis without evidence of acute diverticulitis. All CT scans are performed using dose optimization techniques as appropriate to the performed exam an d include at least one of the following: Automated exposure control, adjustment of the mA and/or kV according t o size, and the use of iterative reconstruction technique.
[2021-05-15 12:24] LABS: HEMATOCRIT 27.7 % (42.0-52.0); HEMOGLOBIN 8.8 g/dl (14.0-18.0)
[2021-05-15] MEDS ORDERED: LASIX TAB PO PRN (14:02)
[2021-05-15] MEDS ORDERED: VENTOLIN HFA (PER PUFF-WITH SPACER) IH PRN (14:02)
[2021-05-15 14:12] VITALS: BMI 28.8
[2021-05-15] MEDS: LIPITOR PO SCH (16:01)
[2021-05-15] MEDS: PREDNISONE PO SCH (16:01)
[2021-05-15] MEDS: K-DUR PO SCH (16:02)
[2021-05-15] MEDS: JANUVIA PO SCH (16:02)
[2021-05-15] MEDS: CETIRIZINE 10 MG PO SCH (16:02)
[2021-05-15] MEDS: ULTRAM PO PRN (18:36)
[2021-05-15] MEDS: XANAX PO SCH (20:53)
[2021-05-15] MEDS: COREG PO SCH (20:54)
[2021-05-15] MEDS ORDERED: GLUCOPHAGE PO SCH (21:00)
[2021-05-16] MEDS ORDERED: XANAX PO ONE (01:17)
[2021-05-16] MEDS ORDERED: SODIUM CHLORIDE 1,000 ML IV SCH (01:37)
[2021-05-16 03:12] LABS: BASOPHILS % (AUTO) 0.1 % (0.0-3.0); EOSINOPHILS % (AUTO) 0.1 % (0.0-7.0); HEMATOCRIT 25.3 % (42.0-52.0); IMMATURE GRANULOCYTE # (AUTO) 0.1 (0.0-1.0); IMMATURE GRANULOCYTE % (AUTO) 1.2 % (0.0-5.0); LYMPHOCYTES # (AUTO) 1.1 K/uL (0.60-3.4); LYMPHOCYTES % (AUTO) 15.7 (10.0-50.0); MEAN CORPUSCULAR HGB CONC 31.6 (31.8-35.4); MEAN CORPUSCULAR VOLUME 94.8 fl (80.0-94.0); MONOCYTES # (AUTO) 0.2 K/uL (0.4-2.0); MONOCYTES % (AUTO) 2.4 (0-10); NEUTROPHILS # (AUTO) 5.4 K/ul (2.0-6.9); NEUTROPHILS % (AUTO) 80.5 % (42.2-75.2); PLATELET COUNT 304 10^3/uL (140-440); RDW COEFFICIENT OF VARIATION 15.4 % (11.6-14.8); RED BLOOD COUNT 2.67 10^6/ul (4.70-6.10); WHITE BLOOD COUNT 6.69 K/ul (4.2-10.2)
[2021-05-16 03:24] LABS: ALANINE AMINOTRANSFERASE 16.4 U/L (0-50); ALBUMIN 4.2 g/dL (3.5-5.0); ALKALINE PHOSPHATASE 111.6 U/L (56-119); ASPARTATE AMINO TRANSFERASE 21.4 U/L (17-59); BILIRUBIN,TOTAL 0.58 mg/dL (0.2-1.3); BLOOD UREA NITROGEN 27.9 mg/dL (9-20); CALCIUM 8.83 mg/dL (8.4-10.2); CARBON DIOXIDE 20.4 mmol/L (22-30.0); CHLORIDE 109.3 mmol/L (98-107); CREATININE 1.04 mg/dL (0.60-1.10); GLUCOSE 154.6 mg/dL (74-106); POTASSIUM 4.66 mmol/L (3.5-5.1); SODIUM 138.6 mmol/L (134.5-145); TOTAL PROTEIN 6.74 g/dL (6.3-8.2)
[2021-05-16 03:46] LABS: PROTHROMBIN TIME 11.9 SEC (9.3-11.0)
[2021-05-16] MEDS: ULTRAM PO PRN (04:56)
[2021-05-16 05:48] LABS: MAGNESIUM 1.87 mg/dL (1.6-2.3)
[2021-05-16 06:01] LABS: TROPONIN I < 0.012 ng/ml (0.0000-0.120)
[2021-05-16 06:11] VITALS: TEMP 97.2
[2021-05-16] MEDS ORDERED: MORPHINE 2 MG/ML VIAL IVP STA (06:12)
[2021-05-16] MEDS ORDERED: ZOFRAN 4 MG/2 ML IVP STA (06:22)
[2021-05-16] MEDS ORDERED: ZOFRAN 4 MG/2 ML ONE (06:24)
[2021-05-16 07:14] LABS: OCCULT BLOOD SAMPLE 2 NO SPECIMEN RECEIVED (NEGATIVE); OCCULT BLOOD SAMPLE 3 NO SPECIMEN RECEIVED (NEGATIVE)
--- NOTE | 2021-05-16 07:46 | DI ---
EXAM: Single frontal view of the chest HISTORY: Chest pain. COMPARISON: Chest x-ray and CT chest 05/15/21 FINDINGS: Cardiomediastinal silhouette is normal with stable pacer and lead wires terminating in the right ventricle and coronary sinus. There is no pneumothorax or effusion. There is no consolidation , nodule or mass. The osseous structures are unremarkable. IMPRESSION: No acute cardiopulmonary process
--- NOTE | 2021-05-16 08:18 | PCM.DC ---
Final Diagnosis: gastroentestinal bleed biventricular pacemaker Atrial fibrillation diabetes prior right 7 th rib fx CHF Physical Exam Appearance: Ill-appearing (pale due to anemia ) Ill-appearing: Mild Pain Distress: Mild (hx of various arm and chest pains ) Eyes: VISHAL, EOMI, Conjunctiva clear and Conjunctiva pale ENT: Ears normal, Nose normal and Oropharynx normal Neck: Supple Respiratory: Airway patent, Breath sounds clear and Breath sounds equal Cardiovascular: No rub, No murmur and Other (afib R 102) GI/: Soft, Nontender and Other (heme posityive stools was on asa 81 mg and xaralto for AF ) Musculoskeletal: ROM intact, No calf tenderness and Edema (non pitting calf ) Skin: Warm, Dry and Pale Neurological: Sensation intact, Motor intact and Alert Psychiatric: Affect appropriate, Anxious and Depressed Reason for Hospitalization: Fall / volume depletion anemia 6.7 hgb Prognosis/Condition at Discharge: guarded / stable for transfer Medications at Discharge: Ambulatory Orders * Please see attached current in-patient list Medication Instructions Recorded allopurinol 100 mg tablet 100 mg PO DAILY 10/10/16 alprazolam 0.5 mg tablet 0.5 mg PO BID 10/10/16 aspirin 81 mg tablet,delayed 81 mg PO BEDTIME 10/10/16 release atorvastatin 40 mg tablet (Lipitor) 40 mg PO DAILY 10/10/16 cetirizine 10 mg tablet 10 mg PO DAILY 10/10/16 furosemide 40 mg tablet 40 mg PO QDAC 10/10/16 levothyroxine 125 mcg tablet 125 mcg PO DAILY 10/10/16 (Synthroid) metformin 500 mg tablet 500 mg PO BEDTIME 10/10/16 pantoprazole 40 mg tablet,delayed 40 mg PO BIDAC 10/10/16 release potassium chloride 20 mEq 20 meq PO DAILY 10/10/16 tablet,extended release(part/cryst) (Klor-Con M) rivaroxaban 20 mg tablet (Xarelto) 20 mg PO DAILY 10/10/16 sitagliptin 100 mg tablet (Januvia) 100 mg PO DAILY 10/10/16 albuterol sulfate 90 mcg/actuation 6.7 g INHALATION Q6H PRN #1 01/23/17 aerosol inhaler (Proventil HFA) hfa.aer.ad fluticasone propionate 50 1 spray NS DAILY PRN 01/30/18 mcg/actuation nasal spray,suspension mometasone-formoterol HFA 200 2 puff INH BID PRN 03/27/17 mcg-5 mcg/actuation aerosol inhaler (Dulera) olopatadine 0.6 % nasal spray 30.5 g NS DAILY PRN 03/27/17 magnesium oxide 400 mg (241.3 mg 800 mg PO DAILY #30 tablet 03/30/17 magnesium) tablet ferrous sulfate 325 mg (65 mg 325 mg PO DAILY 08/29/18 iron) tablet carvedilol 25 mg tablet 25 mg PO BID 01/19/21 diltiazem HCl 240 mg capsule,24 240 mg PO DAILY 01/19/21 hr,extended release dulaglutide 1.5 mg/0.5 mL 1.5 mg SUBCUT DAILY 01/19/21 subcutaneous pen injector (Trulicity) furosemide 40 mg tablet (Lasix) 40 mg PO DAILY PRN 01/19/21 lisinopril 20 mg tablet 20 mg PO DAILY 01/19/21 ondansetron 4 mg disintegrating 4 mg PO Q6H PRN #12 tab 01/19/21 tablet tramadol 50 mg tablet 50 mg PO Q6H PRN #20 tab 04/17/21 Lab/Diagnostics: trop at 0530 neg Ekg - previous pacer spikes notr visible - AF R 102 -104 Mag K Education Provided to Patient and Family: Discussed why we are transferring Follow-ups: Transferred to [facility] Discharge Disposition: [facility] - pt request Hospital Course: Pt presented to the ED after falling having stood up from recliner. Similar event 1 month ago. IN ED found to have 65.7 hgb . ED attemptyed to transfer and regional beds not available. Pt received a total of 2 units PRBC and hgb this am 8 l Plan: Transfer to higher level of care to hospital of patient choice ( reports his laboratory immunologist is there ) for cardiology, GI , and medicine consultation. Discussed with son and pt and they agree and under stand risks and benefits. We appreciate Dr. Mcintyre and Rossy for their assistance
[2021-05-16 08:31] LABS: HEMATOCRIT 23.2 % (42.0-52.0); HEMOGLOBIN 7.4 g/dl (14.0-18.0)
--- NOTE | 2021-05-16 08:40 | PCM.PROG ---
Date Seen by Provider: 05/16/21 Time Seen by Provider: 06:00 Subjective: vague aches to arms and chest - like i get when I work with them above my head. No radiation , change with baseline dyspnea nausea , abd pain , rash , chills , fever Objective: Vitals: T=97.2 F, P=101, R=18, LQ=541/60, SPO2=95 HEENT: [no icterus / pale unchanged ] Neck: [supple no jvd or bruits ] Lungs: [ CTAB ] CVS: [AF [id number] no pacerspike seen ] Abdomen: [soft ] Extremities: [non ankle edema ] Neurological: [intact A/O 3 ] Skin: [warm dry ] Lab/Tests/Diagnostic Imaging: [Trop < o.o12, PT 304,PTT 11.2 ,INR 1.5,K 4.6,CO@ 20.4,glucose 154 ,Covid 20th negative ] Plan: I had spoken with hospitalist at [facility] who accepted and later I was told by ED staff that I didnt need to discuss with another physician. Then at my sign off we received word there was no bed.Report to Dr Alvarez at shift change. Troponin repeat drawn at 0830 will request pace interrogation and see if Dr Ferguson is available today for a consult. Day staff will need to check on transfer alternatives as no GI services available here.
[2021-05-16] MEDS ORDERED: FERROUS SULFATE PO SCH (09:00)
[2021-05-16] MEDS ORDERED: CARDIZEM CD PO SCH (09:00)
[2021-05-16] MEDS ORDERED: ZESTRIL PO SCH (09:00)
[2021-05-16 09:36] VITALS: BP 100/63
[2021-05-16] MEDS: CETIRIZINE 10 MG PO SCH (09:37)
[2021-05-16] MEDS: COREG PO SCH (09:37)
[2021-05-16] MEDS: PREDNISONE PO SCH (09:37)
[2021-05-16] MEDS: JANUVIA PO SCH (09:37)
[2021-05-16] MEDS: XANAX PO SCH (09:38)
[2021-05-16] MEDS: LIPITOR PO SCH (09:38)
[2021-05-16] MEDS: K-DUR PO SCH (09:38)
== END 2021-05-16 10:16 | disposition short-term general hospital (02) ==
LOC: MEDSURG A 04:15 → ED 04:15 → MEDSURG A 14:06
PROVIDERS: ADMIT Emergency Medicine; ATTEND Surgery
DX: I25.10 Atherosclerotic heart disease of native coronary artery without angina pectoris; Z95.0 Presence of cardiac pacemaker; D64.9 Anemia, unspecified; I48.91 Unspecified atrial fibrillation; I50.9 Heart failure, unspecified; K92.2 Gastrointestinal hemorrhage, unspecified; Z51.81 Encounter for therapeutic drug level monitoring; Z79.899 Other long term (current) drug therapy; W19.XXXA Unspecified fall, initial encounter; Z79.01 Long term (current) use of anticoagulants; Z20.822 Contact with and (suspected) exposure to COVID-19

== ENCOUNTER 2022-03-22 02:33 | Inpatient (IN) ==
[2022-03-22 03:06] LABS: BASOPHILS # (AUTO) 0.1 K/uL (0-0.2); BASOPHILS % (AUTO) 0.3 % (0.0-3.0); EOSINOPHILS # (AUTO) 0.1 K/ul (0.0-0.7); EOSINOPHILS % (AUTO) 0.6 % (0.0-7.0); HEMOGLOBIN 13.9 g/dl (14.0-18.0); IMMATURE GRANULOCYTE # (AUTO) 0.5 (0.0-1.0); IMMATURE GRANULOCYTE % (AUTO) 2.6 % (0.0-5.0); LYMPHOCYTES # (AUTO) 1.6 K/uL (0.60-3.4); LYMPHOCYTES % (AUTO) 9.2 (10.0-50.0); MEAN CORPUSCULAR HEMOGLOBIN 29.3 pg (27.0-31.0); MEAN CORPUSCULAR HGB CONC 32.3 (31.8-35.4); MEAN CORPUSCULAR VOLUME 90.7 fl (80.0-94.0); MONOCYTES # (AUTO) 1.2 K/uL (0.4-2.0); MONOCYTES % (AUTO) 7.1 (0-10); NEUTROPHILS # (AUTO) 13.9 K/ul (2.0-6.9); NEUTROPHILS % (AUTO) 80.2 % (42.2-75.2); PLATELET COUNT 418 10^3/uL (140-440); RDW COEFFICIENT OF VARIATION 13.8 % (11.6-14.8); RED BLOOD COUNT 4.74 10^6/ul (4.70-6.10); WHITE BLOOD COUNT 17.34 K/ul (4.2-10.2)
[2022-03-22 03:18] LABS: ALANINE AMINOTRANSFERASE 31.2 U/L (0-50); ALBUMIN 4.07 g/dL (3.5-5.0); ALKALINE PHOSPHATASE 182.4 U/L (56-119); ASPARTATE AMINO TRANSFERASE 25.5 U/L (17-59); BILIRUBIN,TOTAL 0.73 mg/dL (0.2-1.3); BLOOD UREA NITROGEN 25.8 mg/dL (9-20); CALCIUM 8.73 mg/dL (8.4-10.2); CARBON DIOXIDE 24.3 mmol/L (22-30.0); CHLORIDE 100.7 mmol/L (98-107); CREATININE 0.81 mg/dL (0.60-1.10); GLUCOSE 172.6 mg/dL (74-106); POTASSIUM 4.33 mmol/L (3.5-5.1); SODIUM 133.4 mmol/L (134.5-145); TOTAL PROTEIN 7.04 g/dL (6.3-8.2)
--- NOTE | 2022-03-22 03:41 | CT ---
EXAM: CT of the abdomen and pelvis without contrast. HISTORY: Abdominal pain. PROCEDURE: Contiguous axial CT images of the abdomen and pelvis without contrast with coronal and sa gittal reformats. All CT scans are performed using dose optimization techniques as appropriate to a performed exam including the following: Automated exposure control, Adjustment of the mA and/or kV ac cording to patient size, Use of iterative reconstruction technique. COMPARISON: CT abdomen/pelvis 02/23/2022. FINDINGS: The liver is normal in appearance. The gallbladder is surgically absent. The pancreas, sp ernie, adrenal glands and kidneys are normal in appearance. The abdominal aorta is within normal limi ts in size. There are atherosclerotic calcifications in the major arteries of the abdomen and pelvis . The appendix is normal in appearance. There is diverticulosis of the colon. There is focal bowel wall thickening in the mid sigmoid colon measuring 0.5 cm with adjacent edema, consistent with diver ticulitis. No free fluid or free air in the abdomen or pelvis. The bladder is adequately filled and normal in appearance. The seminal vesicles and prostate gland are unremarkable. There are degenera tive changes in the spine. There are multiple chronic bilateral rib fractures. Impression: Sigmoid diverticulitis as described. Atherosclerotic vascular disease. Cholecystectomy. Chronic bilateral rib fractures. All CT scans are performed using dose optimization techniques as appropriate to the performed exam an d include at least one of the following: Automated exposure control, adjustment of the mA and/or kV according t o size, and the use of iterative reconstruction technique.
[2022-03-22] MEDS ORDERED: SODIUM CHLORIDE 1,000 ML IV STA (04:12)
[2022-03-22 04:32] LABS: SARS COV-2 RNA RAPID NAAT NEGATIVE (NEGATIVE)
[2022-03-22] MEDS ORDERED: ZOFRAN 4 MG/2 ML IVP PRN (04:51)
--- NOTE | 2022-03-22 04:53 | ED.PDOC ---
General ED Provider: Dr. SAUD GENAO Chief Complaint: Abdominal Pain Stated Complaint: abd pain a few d, hx diverticulitis, had some flagyl at home Rx by Dr. Ford, started that Time Seen by Provider: 03/22/22 02:50 Mode of Arrival: Walk-In Information Source: Patient Exam Limitations: No limitations Primary Care Provider: HIRA FERGUSON MD Nursing and Triage Documentation Reviewed and Agree: Yes Does patient meet sepsis criteria?: No System Inflammatory Response Syndrome: Not Applicable Sepsis Protocol: For patient's 13 years and over: Temp is 96.8 and below OR 101 and greater Pulse >90 BPM Resp >20/minute Acutely Altered Mental Status Are patient's symptoms suggestive of a new infection, such as: -Pneumonia -Skin, Soft Tissue -Endocarditis -UTI -Bone, Joint Infection -Implantable Device -Acute Abdominal Infection -Wound Infection -Meningitis -Blood Stream Catheter Infection -Unknown GI Complaint Exam Abdominal Pain Complaint/Exam Onset: Gradual Duration: fw d Symptoms Are: Still present Timing: Intermittent Initial Severity: Moderate Current Severity: Moderate Location of Pain: LLQ Character: Reports Dull and Aching Aggravating: Reports Food Alleviating: Reports None and Rest Associated Signs and Symptoms: Denies Diaphoresis, Fever, Cough, Chest pain, Dizziness, Back pain, Constipation, Blood in stool, Dysuria, Urinary frequency, Decreased urine output, Decreased appetite, Discharge, Nausea, Vomiting, Anu rrhea or Decreased activity AAA Risk Factors: Reports None Cardiac Risk Factors: Reports DM and Hypertension Testicular Torsion Risk Factors: Reports None Surgical Obstruction Risk Factors: Reports None Related Surgical History: Reports None Abdominal Findings: Present Other (TTP LLQ) Review of Systems Review Of Systems Constitutional: Reports Malaise and Weakness Eyes: Reports No symptoms Ears, Nose, Mouth, Throat: Reports No symptoms Respiratory: Reports No symptoms Cardiac: Reports No symptoms GI: Reports Abdominal pain : Reports No symptoms Musculoskeletal: Reports No symptoms Skin: Reports No symptoms Neurological: Reports No symptoms Endocrine: Reports No symptoms Hematologic/Lymphatic: Reports No symptoms All Other Systems: Reviewed and Negative [facility] Medical History (Updated 03/22/22 @ 04:45 by SAUD GENAO MD) A-fib CHF (congestive heart failure) Coronary artery disease Diabetes Diverticulosis Gout HTN (hypertension) Hypomagnesemia Family History Mother Diabetes FATHER Diabetes FATHER Heart abnormality Mother Heart abnormality Social History Smoking and tobacco status: Never smoker Surgical History (Updated 03/22/22 @ 03:45 by DORIAN TARIQ RN) History of cholecystectomy History of placement of internal cardiac defibrillator Physical Exam Physical Exam Appearance: Reports Ill-appearing Ill-appearing: Mild Pain Distress: Mild Eyes: Reports Conjunctiva inflammed ENT: Reports Oropharynx normal Neck: Supple Respiratory: Reports Airway patent and Breath sounds clear Cardiovascular: Reports Pulses normal and Irregular rhythm GI/: Reports Soft and Tender (LLQ) Musculoskeletal: Reports Normal strength and ROM intact Skin: Reports Warm and Dry Neurological: Reports Sensation intact, Motor intact and Alert Psychiatric: Reports Affect appropriate and Mood appropriate Interpretation Radiology Interpretation Radiology Interpretation By: Radiologist Radiology Results: Positive Exam Interpreted: CT Scan Xray Comments: diverticulitis Physician Notification Case Discussed Physician Notified: Dr. Ferguson Time of Notification: 04:45 Comments: Admit for IV abx, did not indicate need for any monitoring. Admit/Transition Orders Entered by ED Provider: Yes Admit To: Inpatient Critical Care Note Critical Care Note Total Critical Care Time (mins): 0 Course Course Hematology/Chemistry: 03/22/22 03:00 03/22/22 03:00 Orders, Labs, Meds: Lab Review 03/22/22 03/22/22 03/22/22 03:00 03:00 03:55 WBC 17.34 H RBC 4.74 Hgb 13.9 L Hct 43.0 MCV 90.7 MCH 29.3 MCHC 32.3 RDW Coeff of Jennifer 13.8 Plt Count 418 Immature Gran % (Auto) 2.6 Neut % (Auto) 80.2 H Lymph % (Auto) 9.2 L Arroyo % (Auto) 7.1 Eos % (Auto) 0.6 Baso % (Auto) 0.3 Neut # (Auto) 13.9 H Lymph # (Auto) 1.6 [place]royo # (Auto) 1.2 Eos # (Auto) 0.1 Baso # (Auto) 0.1 Immature Gran # (Auto) 0.5 Sodium 133.4 L Potassium 4.33 Chloride 100.7 Carbon Dioxide 24.3 Anion Gap 12.73 BUN 25.8 H Creatinine 0.81 Estimated GFR (MDRD) 91.00 BUN/Creatinine Ratio 31.85 Glucose 172.6 H Calcium 8.73 Total Bilirubin 0.73 AST 25.5 ALT 31.2 Alkaline Phosphatase 182.4 H Total Protein 7.04 Albumin 4.07 Globulin 2.97 Albumin/Globulin Ratio 1.37 SARS CoV-2 RNA Rapid LO Negative Orders Category Date Time Status CBC W/ AUTO DIFF Stat LAB 03/22/22 03:00 Completed COMPREHENSIVE METABOLIC PANEL Stat LAB 03/22/22 03:00 Completed SARS COV-2 RNA RAPID LO Stat LAB 03/22/22 03:55 Completed URINALYSIS C & S IF INDICATED Stat LAB 03/22/22 02:46 Uncollected Ciprofloxacin/D5w [Cipro 400 mg/200 ml D5w] MEDS 03/22/22 09:00 Active 400 mg in 200 ml IV Q12HR Sodium Chloride 0.9% [Sodium Chloride] 1,000 ml MEDS 03/22/22 04:12 Active IV 75 mls/hr CT ABDOMEN/PELVIS WO CONTRAST Stat RADS 03/22/22 02:46 Completed Medications Generic Name Dose Route Start Last Admin Trade Name Freq PRN Reason Stop Dose Admin Alprazolam 0.5 mg 03/22/22 09:00 Alprazolam 0.5 Mg Tablet PO BID [facility] Atorvastatin Calcium 40 mg 03/22/22 09:00 Atorvastatin Calcium 20 Mg Tablet PO DAILY SANDIE Carvedilol 12.5 mg 03/22/22 09:00 Carvedilol 12.5 Mg Tablet PO BIDWM [facility] Clopidogrel Bisulfate 75 mg 03/22/22 09:00 Clopidogrel Bisulfate 75 Mg Tablet PO DAILY SANDIE Digoxin 125 mcg 03/22/22 09:00 Digoxin 125 Mcg Tablet PO DAILY SANDIE Diltiazem HCl 120 mg 03/22/22 09:00 Diltiazem Hcl 120 Mg Cap.Er.24h PO DAILY SANDIE Enoxaparin Sodium 40 mg 03/22/22 09:00 Enoxaparin Sodium 40 Mg/0.4 Ml Syr SUBCUT DAILY SANDIE Ferrous Sulfate 324 mg 03/22/22 09:00 Ferrous Sulfate 324 Mg Tablet.Dr PO DAILY SANDIE Ciprofloxacin/Dextrose 400 mg in 200 mls @ 200 mls/hr 03/22/22 09:00 Cipro 400 Mg/200 Ml D5w IV 03/25/22 08:59 Q12HR SANDIE Sodium Chloride 1,000 mls @ 75 mls/hr 03/22/22 04:12 03/22/22 04:14 Sodium Chloride IV 03/22/22 17:31 75 mls/hr .[id number] STA Administration Sodium Chloride 1,000 mls @ 75 mls/hr 03/22/22 05:00 03/22/22 06:16 Sodium Chloride IV Not Given .[id number] SANDIE Metronidazole 500 mg in 100 mls @ 100 mls/hr 03/22/22 05:00 03/22/22 06:16 Flagyl 500 Mg/100 Ml IV 03/25/22 04:59 100 mls/hr Q8HR SANDIE Administration Lisinopril 2.5 mg 03/22/22 09:00 Lisinopril 5 Mg Tablet PO DAILY SANDIE Ondansetron HCl 4 mg 03/22/22 04:51 Ondansetron Hcl/Pf 4 Mg/2 Ml Sdv IVP Q6H PRN Nausea / Vomiting Oxycodone/Acetaminophen 1 tab 03/22/22 05:02 Oxycodone/Acetaminophen 5/325 Mg Tablet PO Q4H PRN Abdominal Pain Potassium Chloride 10 meq 03/22/22 08:30 Potassium Chloride 10 Meq Capsule.Er PO DAILYWM SANDIE Spironolactone 25 mg 03/22/22 09:00 Spironolactone 25 Mg Tablet PO BID SANDIE Vital Signs: Temp Pulse Resp BP Pulse Ox 03/22/22 04:19 60 15 102/48 L 97 03/22/22 02:35 98.1 F 71 18 132/73 98 Discharge Plan Discharge Patient Disposition: ADMITTED INPATIENT Discharge Problem: Diverticulitis large intestine Qualifiers: Diverticulitis bleeding: without bleeding Diverticulitis complication: without perforation or abscess Qualified Code(s): K57.32 - Diverticulitis of large intestine without perforation or abscess without bleeding Did you review [place] [employer] for ALL controlled substances?: Not Applicable ED Provider: SAUD GENAO Condition: Stable Physician Progress Note: []Admit per luc Akbar and tulio. Dr. Ferguson did not indicate initial need for any other tx except abx.
[2022-03-22] MEDS ORDERED: SODIUM CHLORIDE 1,000 ML IV SCH (05:00)
[2022-03-22] MEDS: FLAGYL 500 MG/100 ML 500 MG/100 ML BAG IV SCH ×3 (06:16→20:28)
[2022-03-22 06:32] VITALS: BMI 26.0
[2022-03-22] MEDS ORDERED: LOVENOX SUBCUT SCH (09:00)
[2022-03-22] MEDS ORDERED: COREG PO SCH (09:00)
[2022-03-22] MEDS ORDERED: ALDACTONE PO SCH (09:00)
[2022-03-22] MEDS: ZESTRIL PO SCH (09:13)
[2022-03-22] MEDS: CARDIZEM CD PO SCH (09:13)
[2022-03-22] MEDS: XANAX PO SCH ×2 (09:13→20:28)
[2022-03-22] MEDS: FERROUS SULFATE PO SCH (09:13)
[2022-03-22] MEDS: PLAVIX PO SCH (09:14)
[2022-03-22] MEDS: CIPRO 400 MG/200 ML D5W 400 MG/200 ML BAG IV SCH ×2 (09:14→21:40)
[2022-03-22] MEDS: LANOXIN PO SCH (09:15)
[2022-03-22] MEDS: LIPITOR PO SCH (09:15)
[2022-03-22] MEDS: MICRO-K CAP PO SCH (09:15)
--- NOTE | 2022-03-22 10:36 | PCM.PROG ---
Attending Provider: ATTENDING PROVIDER: Dr. HIRA PARKER MD This patient is seen with Aurelia Shirley, Nurse Practitioner. DATE OF SERVICE: 03/22/22 SUBJECTIVE: This 82 year old /WHITE M was hospitalized 03/22/22. The patient is resting comfortably. He is still complaining of abdominal pain. He had a spot of bright red blood in his stool. He has history of diverticular disease. Hemoglobin is stable. He stopped Lovenox. No fever but is somewhat nauseated. REVIEW OF SYSTEMS: CONSTITUTIONAL: No night sweats. No fatigue, malaise, lethargy. No fever or chills. HEENT: Eyes: No visual changes. No eye pain. No eye discharge. ENT: No runny nose. No epistaxis. No sinus pain. No odynophagia. No congestion. RESPIRATORY: No cough, no congestion. No hemoptysis. No shortness of breath. CARDIOVASCULAR: No angina symptoms. No CHF symptoms. No atypical chest pain for CAD. No palpitations. No orthopnea.. GASTROINTESTINAL: Loss of appetite. Nausea. Abdominal pain. No diarrhea or constipation. No hematemesis. No hematochezia. GENITOURINARY: No urgency. No frequency. No dysuria. No hematuria. No obstructive symptoms. No discharge. No pain. No significant abnormal bleeding. MUSCULOSKELETAL: No musculoskeletal pain; no joint swelling. NEUROLOGICAL: Awake, alert, oriented to time, place and person. No headache. No neck pain. No syncope. No seizures. No dizziness. PSYCHIATRIC: Not anxious. No depression. No suicidal thoughts. No homicidal thoughts. SKIN: No rash. No lesions. No wounds. ENDOCRINE: No unexplained weight loss. No weight gain. HEMATOLOGIC/LYMPHATIC: No anemia. No purpura. No petechiae. No prolonged or excessive bleeding. No palpable lymph nodes. PHYSICAL EXAMINATION: GENERAL: The patient is awake, alert and oriented, lying/sitting in bed in no distress. VITAL SIGNS: Temperature 97.0 F, Pulse 60, Respiratory Rate 18, BP 102/48, Pulse Ox 98% HEENT: Head normocephalic, atraumatic. Eyes: Extraocular muscles are intact. Pupils are equal, round and reactive to light and accommodation. Ears: No lesions. Nose appeared normal. Throat: No exudate or erythema. NECK: Supple. No JVD, no carotid bruit. No lymphadenopathy or thyromegaly. LUNGS: Diminished breath sounds. Clear to auscultation. Percussion note normal. Chest symmetrical. HEART: S1, S2, no S3. No murmurs. No cyanosis or clubbing. No ascites. Pulses: Dorsalis pedis and posterior tibial pulses +1 to +2 both sides. ABDOMEN: Left quadrant abdominal tenderness. Soft. Bowel sounds active. No CVA tenderness. No mass felt. EXTREMITIES: No edema. Full range of motion of all extremities, equal. NEUROLOGIC: No focal deficit. Cranial nerves II through XII are grossly intact. No headache. No double vision. SKIN: Not dry. Intact. Turgor-normal. LYMPHATIC: No palpable lymph nodes/no lymphedema. MUSCULOSKELETAL: Normal joints with no swelling. Muscle tone is normal. LAB REVIEW: 03/22/22 03:00 03/22/22 03:00 03/22/22 03:55: SARS CoV-2 RNA Rapid LO Negative 03/22/22 03:00: Sodium 133.4 L, Potassium 4.33, Chloride 100.7, Carbon Dioxide 24.3, Anion Gap 12.73, BUN 25.8 H, Creatinine 0.81, Estimated GFR (MDRD) 91.00, BUN/Creatinine Ratio 31.85, Glucose 172.6 H, Calcium 8.73, Total Bilirubin 0.73, AST 25.5, ALT 31.2, Alkaline Phosphatase 182.4 H, Total Protein 7.04, Albumin 4.07, Globulin 2.97, Albumin/Globulin Ratio 1.37 03/22/22 03:00: WBC 17.34 H, RBC 4.74, Hgb 13.9 L, Hct 43.0, MCV 90.7, MCH 29.3, MCHC 32.3, RDW Coeff of Jennifer 13.8, Plt Count 418, Immature Gran % (Auto) 2.6, Neut % (Auto) 80.2 H, Lymph % (Auto) 9.2 L, Orange % (Auto) 7.1, Eos % (Auto) 0.6, Baso % (Auto) 0.3, Neut # (Auto) 13.9 H, Lymph # (Auto) 1.6, Orange # (Auto) 1.2, Eos # (Auto) 0.1, Baso # (Auto) 0.1, Immature Gran # (Auto) 0.5 ASSESSMENT: Please see below. 1. Acute sigmoid diverticulitis. 2. Severe dilated cardiomyopathy with ejection fraction around 20%. 3. Renal azotemia. 4. Hypotension. PLAN: 1. Discontinue IV fluids after current bag. 2. Stop Lovenox. 3. Continue IV antibiotics. 4. Digoxin level. 5. Continue IV antibiotics. 6. Verify with pharmacy his home medications. 7. UA pending. 8. Follow diverticulitis diet. 9. Zofran 4 mg p.r.n. IV q.6hr. Plan and coordination of the patient's care discussed in the presence of Barker Operator and nurse. CONDITION: Stable SCRIBED BY: KE HOOD Laundry Pricing Clerk scribed while in presence of service performed by Dr. Parker/Aurelia Shirley APRN on 03/22/22 ([id number])
[2022-03-22] MEDS: SANTYL TP SCH (13:08)
[2022-03-22 13:32] LABS: BILIRUBIN,URINE Negative (NEGATIVE); CLARITY,URINE Clear (CLEAR); COLOR,URINE Yellow (YELLOW); GLUCOSE, URINE (UA) Negative (NEGATIVE); KETONES,URINE Negative (NEGATIVE); LEUKOCYTE ESTERASE ,URINE Negative (NEGATIVE); NITRITE,URINE Negative (NEGATIVE); PROTEIN,URINE 1+ (NEGATIVE); URINE, BLOOD Negative (NEGATIVE); UROBILINOGEN,URINE 0.2 (0.2)
[2022-03-22 13:34] LABS: MUCUS,URINE 1+ (NOT PRESENT); SQUAMOUS EPITHELIAL CELL,UR NOT PRESENT (0-5); STARCH,URINE TRACE (NOT PRESENT); URINE RBC, MICROSCOPIC 0-2 (0-2); URINE WBC, MICROSCOPIC 0-2 (0-2)
[2022-03-22] MEDS: PROTONIX PO SCH (16:20)
[2022-03-22] MEDS: CARAFATE PO SCH ×2 (18:15→20:28)
[2022-03-22] MEDS: PERCOCET 5-325 PO PRN (20:28)
[2022-03-22] MEDS ORDERED: ULTRAM PO PRN (21:00)
[2022-03-23 05:24] LABS: BASOPHILS # (AUTO) 0.1 K/uL (0-0.2); BASOPHILS % (AUTO) 0.4 % (0.0-3.0); EOSINOPHILS # (AUTO) 0.2 K/ul (0.0-0.7); EOSINOPHILS % (AUTO) 1.4 % (0.0-7.0); HEMATOCRIT 38.3 % (42.0-52.0); HEMOGLOBIN 12.2 g/dl (14.0-18.0); IMMATURE GRANULOCYTE # (AUTO) 0.3 (0.0-1.0); IMMATURE GRANULOCYTE % (AUTO) 2.5 % (0.0-5.0); LYMPHOCYTES # (AUTO) 1.8 K/uL (0.60-3.4); LYMPHOCYTES % (AUTO) 14.8 (10.0-50.0); MEAN CORPUSCULAR HEMOGLOBIN 29.2 pg (27.0-31.0); MEAN CORPUSCULAR HGB CONC 31.9 (31.8-35.4); MEAN CORPUSCULAR VOLUME 91.6 fl (80.0-94.0); MONOCYTES # (AUTO) 1.1 K/uL (0.4-2.0); MONOCYTES % (AUTO) 9.1 (0-10); NEUTROPHILS # (AUTO) 8.8 K/ul (2.0-6.9); NEUTROPHILS % (AUTO) 71.8 % (42.2-75.2); PLATELET COUNT 334 10^3/uL (140-440); RDW COEFFICIENT OF VARIATION 14.1 % (11.6-14.8); RED BLOOD COUNT 4.18 10^6/ul (4.70-6.10); WHITE BLOOD COUNT 12.24 K/ul (4.2-10.2)
[2022-03-23] MEDS: FLAGYL 500 MG/100 ML 500 MG/100 ML BAG IV SCH ×3 (05:27→21:06)
[2022-03-23] MEDS: LASIX TAB PO SCH (05:30)
[2022-03-23] MEDS: SYNTHROID PO SCH (05:31)
[2022-03-23] MEDS: PROTONIX PO SCH ×2 (05:31→17:40)
[2022-03-23 05:39] LABS: BLOOD UREA NITROGEN 20.2 mg/dL (9-20); CALCIUM 8.42 mg/dL (8.4-10.2); CARBON DIOXIDE 26.6 mmol/L (22-30.0); CHLORIDE 100.3 mmol/L (98-107); CREATININE 0.85 mg/dL (0.60-1.10); GLUCOSE 155.4 mg/dL (74-106); POTASSIUM 4.08 mmol/L (3.5-5.1); SODIUM 134.2 mmol/L (134.5-145)
[2022-03-23] MEDS: PERCOCET 5-325 PO PRN ×2 (07:57→21:09)
[2022-03-23] MEDS ORDERED: TORADOL IVP ONE (08:48)
[2022-03-23] MEDS ORDERED: DECADRON IM ONE (08:56)
--- NOTE | 2022-03-23 10:02 | PCM.PROG ---
Attending Provider: ATTENDING PROVIDER: Dr. HIRA PARKER MD This patient is seen with Aurelia Shirley, Nurse Practitioner. DATE OF SERVICE: 03/23/22 SUBJECTIVE: This 82 year old /WHITE M was hospitalized 03/22/22. The patient is resting comfortably in the chair. The patient is still reporting bright red blood in stool - this has persisted since admission. Hemoglobin is down to 12.2 was 13.9 on admission He is still having extensive left-sided abdominal pain and tenderness. CT scan noted acute sigmoid diverticulitis but no abscess. Pain has not been controlled with p.o medication. We will try IV Toradol. Renal function is still elevated indicating mild dehydration. He has required I V fluids despite eating well. Nausea and vomiting resolved. REVIEW OF SYSTEMS: CONSTITUTIONAL: Generalized weakness. No night sweats. No fatigue, malaise, lethargy. No fever or chills. HEENT: Eyes: No visual changes. No eye pain. No eye discharge. ENT: No runny nose. No epistaxis. No sinus pain. No odynophagia. No congestion. RESPIRATORY: No cough, no congestion. No hemoptysis. No shortness of breath. CARDIOVASCULAR: No angina symptoms. No CHF symptoms. No atypical chest pain for CAD. No palpitations. No orthopnea.. GASTROINTESTINAL: Loss of appetite. Abdominal pain. Blood in stool. No nausea or vomiting. No diarrhea or constipation. No hematemesis. GENITOURINARY: No urgency. No frequency. No dysuria. No hematuria. No obstructive symptoms. No discharge. No pain. No significant abnormal bleeding. MUSCULOSKELETAL: No musculoskeletal pain; no joint swelling. NEUROLOGICAL: Awake, alert, oriented to time, place and person. No headache. No neck pain. No syncope. No seizures. No dizziness. PSYCHIATRIC: Not anxious. No depression. No suicidal thoughts. No homicidal thoughts. SKIN: No rash. No lesions. No wounds. ENDOCRINE: No unexplained weight loss. No weight gain. HEMATOLOGIC/LYMPHATIC: Anemia. No purpura. No petechiae. No prolonged or excessive bleeding. No palpable lymph nodes. PHYSICAL EXAMINATION: GENERAL: The patient is awake, alert and oriented, lying/sitting in bed in no distress. VITAL SIGNS: Temperature 96.5 F, Pulse 61, Respiratory Rate 18, BP 111/65, Pulse Ox 97% HEENT: Head normocephalic, atraumatic. Eyes: Extraocular muscles are intact. Pupils are equal, round and reactive to light and accommodation. Ears: No lesions. Nose appeared normal. Throat: No exudate or erythema. NECK: Supple. No JVD, no carotid bruit. No lymphadenopathy or thyromegaly. LUNGS: Diminished breath sounds. Clear to auscultation. Percussion note normal. Chest symmetrical. HEART: S1, S2, no S3. No murmurs. No cyanosis or clubbing. No ascites. Pulses: Dorsalis pedis and posterior tibial pulses +1 to +2 both sides. ABDOMEN: Tenderness left upper and lower quadrant. Soft. Bowel sounds active. No CVA tenderness. No mass felt. EXTREMITIES: Abrasion left knee 1 cm healing well. No edema. Full range of motion of all extremities, equal. NEUROLOGIC: No focal deficit. Cranial nerves II through XII are grossly intact. No headache. No double vision. SKIN: Pallor positive. Not dry. Intact. Turgor-normal. LYMPHATIC: No palpable lymph nodes/no lymphedema. MUSCULOSKELETAL: Normal joints with no swelling. Muscle tone is normal. LAB REVIEW: 03/23/22 04:46 03/23/22 04:46 03/23/22 04:46: Sodium 134.2 L, Potassium 4.08, Chloride 100.3, Carbon Dioxide 26.6, Anion Gap 11.38, BUN 20.2 H, Creatinine 0.85, Estimated GFR (MDRD) 87.00, BUN/Creatinine Ratio 23.76, Glucose 155.4 H, Calcium 8.42 03/23/22 04:46: WBC 12.24 H D, RBC 4.18 L, Hgb 12.2 L, Hct 38.3 L, MCV 91.6, MCH 29.2, MCHC 31.9, RDW Coeff of Jennifer 14.1, Plt Count 334, Immature Gran % (Auto) 2.5, Neut % (Auto) 71.8, Lymph % (Auto) 14.8, [place] % (Auto) 9.1, Eos % (Auto) 1.4, Baso % (Auto) 0.4, Neut # (Auto) 8.8 H, Lymph # (Auto) 1.8, Borden # (Auto) 1.1, Eos # (Auto) 0.2, Baso # (Auto) 0.1, Immature Gran # (Auto) 0.3 03/22/22 13:15: Urine Color Yellow, Urine Clarity Clear, Urine pH 6.0, Ur Specific [place] >=1.030, Urine Protein 1+ H, Urine Glucose (UA) Negative, Urine Ketones Negative, Urine Blood Negative, Urine Nitrite Negative, Urine Bilirubin Negative, Urine Urobilinogen 0.2, Ur Leukocyte Esterase Negative, Urine Microscopic RBC 0-2, Urine Microscopic WBC 0-2, Ur Squamous Epith Cells Not present, Urine Starch Trace, Urine Mucus 1+ 03/22/22 03:08: Digoxin 0.61 L ASSESSMENT: Please see below. 1. Acute sigmoid diverticulitis 2. Acute abdominal pain 3. Anemia 4. Dehydration 5. Renal azotemia PLAN: 1. Toradol 15 mg IV times one. 2. Continue .5 Xanax b.i.d. - add .25 at bedtime. 3. Continue Cipro and Flagyl IV. Plan and coordination of the patient's care discussed in the presence of Electric Deicer Inspector and nurse. CONDITION: Stable SCRIBED BY: KE HOOD Protection Mgr scribed while in presence of service performed by Dr. Parker/Aurelia Shirley APRN on 03/23/22 ([id number])
[2022-03-23] MEDS: PLAVIX PO SCH (11:11)
[2022-03-23] MEDS: TENORMIN PO SCH (11:11)
[2022-03-23] MEDS: CARDIZEM CD PO SCH (11:11)
[2022-03-23] MEDS: ASPIRIN CHEWABLE PO SCH (11:11)
[2022-03-23] MEDS: ZYLOPRIM PO SCH (11:11)
[2022-03-23] MEDS: JANUVIA PO SCH (11:12)
[2022-03-23] MEDS: XANAX PO SCH ×2 (11:13→21:06)
[2022-03-23] MEDS: LIPITOR PO SCH (11:13)
[2022-03-23] MEDS: FERROUS SULFATE PO SCH (11:13)
[2022-03-23] MEDS: LANOXIN PO SCH (11:13)
[2022-03-23] MEDS: ZESTRIL PO SCH (11:14)
[2022-03-23] MEDS: MICRO-K CAP PO SCH (11:14)
[2022-03-23] MEDS: ALDACTONE PO SCH (11:15)
[2022-03-23] MEDS: CIPRO 400 MG/200 ML D5W 400 MG/200 ML BAG IV SCH ×2 (11:18→22:30)
[2022-03-23] MEDS: CARAFATE PO SCH ×4 (11:24→21:06)
[2022-03-23] MEDS: SANTYL TP SCH (11:25)
--- NOTE | 2022-03-23 15:16 | PN ---
DATE OF SERVICE: 03/22/22 SUBJECTIVE: Patient was seen and examined with the nurse practitioner. Patient's condition is stable. He was admitted with sigmoid diverticulosis which started out with colitis. He is on Cipro and Flagyl. I examined him in the afternoon and condition had already improved. He had less pain. His cardiovascular status is stable. He has no evidence of CHF or coronary insufficiency. REVIEW OF SYSTEMS: CONSTITUTIONAL: No night sweats. No fatigue, malaise, lethargy. No fever or chills. HEENT: Eyes: No visual changes. No eye pain. No eye discharge. ENT: No runny nose. No epistaxis. No sinus pain. No sore throat. No odynophagia. No congestion. RESPIRATORY: No cough, no congestion. No hemoptysis. No shortness of breath. CARDIOVASCULAR: No angina symptoms. No CHF symptoms. No atypical chest pain for CAD. No palpitations. No PND. No orthopnea. GASTROINTESTINAL: No abdominal pain. No nausea or vomiting. No diarrhea or constipation. No hematemesis. No hematochezia. GENITOURINARY: No urgency. No frequency. No dysuria. No hematuria. No obstructive symptoms. No discharge. No pain. No significant abnormal bleeding. MUSCULOSKELETAL: No musculoskeletal pain; no joint swelling. NEUROLOGICAL: No headache. No neck pain. No syncope. No seizures. No dizziness. PSYCHIATRIC: Not anxious. No depression. No suicidal thoughts. No homicidal thoughts. SKIN: No rash. No lesions. No wounds. ENDOCRINE: No unexplained weight loss. No weight gain. HEMATOLOGIC/LYMPHATIC: No anemia. No purpura. No petechiae. No prolonged or excessive bleeding. No palpable lymph nodes. PHYSICAL EXAMINATION: GENERAL: The patient is in no distress. HEENT: Head normocephalic, atraumatic. Eyes: Extraocular muscles are intact. Pupils are equal, round and reactive to light and accommodation. Ears: No lesions. Nose appeared normal. Throat: No exudate or erythema. NECK: Supple. No JVD, no carotid bruit. No lymphadenopathy or thyromegaly. LUNGS: Clear to auscultation. Percussion note normal. Chest symmetrical. HEART: S1, S2, no S3. No murmurs. No cyanosis or clubbing. No ascites. Pulses: Dorsalis pedis and posterior tibial pulses +1 to +2 bilaterally. ABDOMEN: Soft. Nontender. Bowel sounds active. No CVA tenderness. No mass felt. EXTREMITIES: No edema. Full range of motion of all extremities, equal. NEUROLOGIC: No focal deficit. Cranial nerves II through XII are grossly intact. No headache. No double vision. SKIN: Not dry. Intact. Turgor - normal. LYMPHATIC: No palpable lymph nodes/no lymphedema. MUSCULOSKELETAL: Normal joints with no swelling. Muscle tone is normal. TIME SPENT: More than 35 minutes. Plan and coordination of the patient's care discussed in the presence of nurse. LAYLA
[2022-03-23] MEDS ORDERED: XANAX PO SCH (21:00)
[2022-03-24 05:27] LABS: BASOPHILS % (AUTO) 0.2 % (0.0-3.0); EOSINOPHILS % (AUTO) 0.1 % (0.0-7.0); HEMATOCRIT 34.8 % (42.0-52.0); HEMOGLOBIN 11.3 g/dl (14.0-18.0); IMMATURE GRANULOCYTE # (AUTO) 0.2 (0.0-1.0); IMMATURE GRANULOCYTE % (AUTO) 1.5 % (0.0-5.0); LYMPHOCYTES # (AUTO) 1.4 K/uL (0.60-3.4); LYMPHOCYTES % (AUTO) 9.4 (10.0-50.0); MEAN CORPUSCULAR HEMOGLOBIN 29.5 pg (27.0-31.0); MEAN CORPUSCULAR HGB CONC 32.5 (31.8-35.4); MEAN CORPUSCULAR VOLUME 90.9 fl (80.0-94.0); MONOCYTES # (AUTO) 0.8 K/uL (0.4-2.0); MONOCYTES % (AUTO) 5.2 (0-10); NEUTROPHILS # (AUTO) 12.3 K/ul (2.0-6.9); NEUTROPHILS % (AUTO) 83.6 % (42.2-75.2); PLATELET COUNT 307 10^3/uL (140-440); RDW COEFFICIENT OF VARIATION 13.7 % (11.6-14.8); RED BLOOD COUNT 3.83 10^6/ul (4.70-6.10); WHITE BLOOD COUNT 14.71 K/ul (4.2-10.2)
[2022-03-24 05:39] LABS: BLOOD UREA NITROGEN 20.7 mg/dL (9-20); CALCIUM 8.92 mg/dL (8.4-10.2); CARBON DIOXIDE 26.4 mmol/L (22-30.0); CHLORIDE 101.1 mmol/L (98-107); CREATININE 0.85 mg/dL (0.60-1.10); GLUCOSE 156.2 mg/dL (74-106); POTASSIUM 4.79 mmol/L (3.5-5.1); SODIUM 134.4 mmol/L (134.5-145)
[2022-03-24] MEDS: PERCOCET 5-325 PO PRN (05:42)
[2022-03-24] MEDS: PROTONIX PO SCH (05:42)
[2022-03-24] MEDS: LASIX TAB PO SCH (05:42)
[2022-03-24] MEDS: SYNTHROID PO SCH (05:42)
[2022-03-24] MEDS: FLAGYL 500 MG/100 ML 500 MG/100 ML BAG IV SCH (05:42)
[2022-03-24] MEDS: CARAFATE PO SCH ×2 (09:25→12:25)
[2022-03-24] MEDS: CIPRO 400 MG/200 ML D5W 400 MG/200 ML BAG IV SCH ×2 (09:25→09:44)
[2022-03-24] MEDS: ASPIRIN CHEWABLE PO SCH (09:26)
[2022-03-24] MEDS: JANUVIA PO SCH (09:26)
[2022-03-24] MEDS: XANAX PO SCH (09:26)
[2022-03-24] MEDS: LANOXIN PO SCH (09:26)
[2022-03-24] MEDS: MICRO-K CAP PO SCH (09:27)
[2022-03-24] MEDS: PLAVIX PO SCH (09:27)
[2022-03-24] MEDS: ZESTRIL PO SCH (09:27)
[2022-03-24] MEDS: CARDIZEM CD PO SCH (09:27)
[2022-03-24] MEDS: LIPITOR PO SCH (09:27)
[2022-03-24] MEDS: FERROUS SULFATE PO SCH (09:28)
[2022-03-24] MEDS: ALDACTONE PO SCH (09:29)
[2022-03-24] MEDS: TENORMIN PO SCH (09:29)
[2022-03-24] MEDS: ZYLOPRIM PO SCH (09:29)
[2022-03-24] MEDS: SANTYL TP SCH (09:39)
[2022-03-24] MEDS ORDERED: CIPRO PO ONE (09:45)
--- NOTE | 2022-03-24 10:14 | PCM.PROG ---
Attending Provider: ATTENDING PROVIDER: Dr. HIRA PARKER MD This patient is seen with Aurelia Shirley, Nurse Practitioner. DATE OF SERVICE: 03/24/22 SUBJECTIVE: This 82 year old /WHITE M was hospitalized 03/22/22. The patient reported abdominal pain significantly improved. Still has pain from chronic rid fracture which is not new. Hgb drop slightly, no more bright red blood in stool. Stool are normal in color and formed. He has been eating well. REVIEW OF SYSTEMS: CONSTITUTIONAL: No night sweats. Fatigue. No fever or chills. Weakness. HEENT: Eyes: No visual changes. No eye pain. No eye discharge. ENT: No runny nose. No epistaxis. No sinus pain. No odynophagia. No congestion. RESPIRATORY: No cough, no congestion. No hemoptysis. No shortness of breath. CARDIOVASCULAR: No angina symptoms. No CHF symptoms. No atypical chest pain for CAD. No palpitations. No orthopnea.. GASTROINTESTINAL: No abdominal pain. No nausea or vomiting. No diarrhea or constipation. No hematemesis. No hematochezia. GENITOURINARY: No urgency. No frequency. No dysuria. No hematuria. No obstructive symptoms. No discharge. No pain. No significant abnormal bleeding. MUSCULOSKELETAL: No musculoskeletal pain; no joint swelling. Bilateral rib pain. NEUROLOGICAL: Awake, alert, oriented to time, place and person. No headache. No neck pain. No syncope. No seizures. No dizziness. PSYCHIATRIC: Not anxious. No depression. No suicidal thoughts. No homicidal thoughts. SKIN: No rash. No lesions. No wounds. ENDOCRINE: No unexplained weight loss. No weight gain. HEMATOLOGIC/LYMPHATIC: No anemia. No purpura. No petechiae. No prolonged or excessive bleeding. No palpable lymph nodes. PHYSICAL EXAMINATION: GENERAL: The patient is awake, alert and oriented,sitting in bed in no distress. VITAL SIGNS: Temperature 96.8 F, Pulse 60, Respiratory Rate 19, BP 134/66, Pulse Ox 99% HEENT: Head normocephalic, atraumatic. Eyes: Extraocular muscles are intact. Pupils are equal, round and reactive to light and accommodation. Ears: No lesions. Nose appeared normal. Throat: No exudate or erythema. NECK: Supple. No JVD, no carotid bruit. No lymphadenopathy or thyromegaly. LUNGS: Diminished breath sounds. Bilateral chest wall tenderness. Clear to auscultation. Percussion note normal. Chest symmetrical. HEART: S1, S2, no S3. No murmurs. No cyanosis or clubbing. No ascites. Pulses: Dorsalis pedis and posterior tibial pulses +1 to +2 both sides. ABDOMEN: Soft. Non-tender. No left quadrant tenderness. Bowel sounds active. No CVA tenderness. No mass felt. EXTREMITIES: No edema. Full range of motion of all extremities, equal. NEUROLOGIC: No focal deficit. Cranial nerves II through XII are grossly intact. No headache. No double vision. SKIN: Not dry. Intact. Turgor-normal. LYMPHATIC: No palpable lymph nodes/no lymphedema. MUSCULOSKELETAL: Normal joints with no swelling. Muscle tone is normal. LAB REVIEW: 03/24/22 05:23 03/24/22 05:23 03/24/22 05:23: Sodium 134.4 L, Potassium 4.79, Chloride 101.1, Carbon Dioxide 26.4, Anion Gap 11.69, BUN 20.7 H, Creatinine 0.85, Estimated GFR (MDRD) 87.00, BUN/Creatinine Ratio 24.35, Glucose 156.2 H, Calcium 8.92 03/24/22 05:23: WBC 14.71 H, RBC 3.83 L, Hgb 11.3 L, Hct 34.8 L, MCV 90.9, MCH 29.5, MCHC 32.5, RDW Coeff of Jennifer 13.7, Plt Count 307, Immature Gran % (Auto) 1.5, Neut % (Auto) 83.6 H, Lymph % (Auto) 9.4 L, Bee % (Auto) 5.2, Eos % (Auto) 0.1, Baso % (Auto) 0.2, Neut # (Auto) 12.3 H, Lymph # (Auto) 1.4, Bee # (Auto) 0.8, Eos # (Auto) 0.0, Baso # (Auto) 0.0, Immature Gran # (Auto) 0.2 ASSESSMENT: Please see below. 1. Acute sigmoid diverticulitis 2. Chronic rib pain, chronic bilateral rib fracture 3. Chronic anemia 4. CHF 5. Hypertension PLAN: 1. Discharge home 2. Home medications to be resumed 3. Cipro 500mg BID for 7 days 4. Flagyl 500mg TID for 7 days 5. Diverticulosis diet 6. Appointment in our office next Sunday with labs 7. The patient has 24 hour care management assistant at home 8. The patient was told to go to the ER if experiencing any bleeding. Plan and coordination of the patient's care discussed in the presence of Key Maker and nurse. SCRIBED BY: KANDACE SANTOS Department Supervisor scribed while in presence of service performed by Dr. Parker/Aurelia Shirley APRN on 03/24/22 ([id number])
--- NOTE | 2022-03-24 10:23 | DS ---
DATE OF SERVICE: 03/24/22 FINAL DIAGNOSIS: 1. Acute sigmoid diverticulitis 2. Chronic rib pain, chronic bilateral rib fracture 3. Chronic anemia 4. CHF 5. Hypertension DISCHARGE INSTRUCTIONS: Discharge home today. Followup with Dr. Ferguson's office on Monday, March 28, 2022. Continue home medications. NEW PRESCRIPTIONS: Cipro 500mg BID Flagyl 500mg TID DIET INSTRUCTIONS: Diverticulosis diet HOSPITAL COURSE: 82 year old white male who presented to the ER with abdominal pain and diarrhea. CT of the abdomen showed acute sigmoid diverticulitis. WBC was elevated at 14,000. There was no evidence of abscess. He was in acute pain and required IV pain medication as he is already on PO Oxycodone. He was unable to eat having diarrhea and nausea. Renal function was elevated indicating dehydration. He was admitted and placed on IV fluids along with IV Cipro and Flagyl. Over the course of the past two days renal function has returned to baseline. WBC has improved. Abdominal pain has improved. he has been eating moderately well. Initial day of admission has two stools with small amount of bright red blood, the patient has history of hemorrhoids and has since had none. The patient would like to be discharged today. He has 24 hours personal care assistant at home. He will be given prescription for Cipro and Flagyl. He is to followup in our office next week. TIME SPENT: More than 60 minutes. LAYLA
[2022-03-24 10:37] VITALS: BP 141/80; TEMP 97.7
--- NOTE | 2022-03-26 09:40 | PN ---
DATE OF SERVICE: 03/23/22 SUBJECTIVE: Patient was seen and examined with the nurse practitioner. Patient was hospitalized with sigmoid diverticulitis. His condition is improving. Cardiovascular status is stable. Patient is up and about with help. REVIEW OF SYSTEMS: CONSTITUTIONAL: No night sweats. No fatigue, malaise, lethargy. No fever or chills. HEENT: Eyes: No visual changes. No eye pain. No eye discharge. ENT: No runny nose. No epistaxis. No sinus pain. No sore throat. No odynophagia. No congestion. RESPIRATORY: No cough, no congestion. No hemoptysis. No shortness of breath. CARDIOVASCULAR: No angina symptoms. No CHF symptoms. No atypical chest pain for CAD. No palpitations. No PND. No orthopnea. GASTROINTESTINAL: No abdominal pain. No nausea or vomiting. No diarrhea or constipation. No hematemesis. No hematochezia. GENITOURINARY: No urgency. No frequency. No dysuria. No hematuria. No obstructive symptoms. No discharge. No pain. No significant abnormal bleeding. MUSCULOSKELETAL: No musculoskeletal pain; no joint swelling. NEUROLOGICAL: No headache. No neck pain. No syncope. No seizures. No dizziness. PSYCHIATRIC: Not anxious. No depression. No suicidal thoughts. No homicidal thoughts. SKIN: No rash. No lesions. No wounds. ENDOCRINE: No unexplained weight loss. No weight gain. HEMATOLOGIC/LYMPHATIC: No anemia. No purpura. No petechiae. No prolonged or excessive bleeding. No palpable lymph nodes. PHYSICAL EXAMINATION: GENERAL: The patient is , lying/sitting in bed in no distress. VITAL SIGNS: HEENT: Head normocephalic, atraumatic. Eyes: Extraocular muscles are intact. Pupils are equal, round and reactive to light and accommodation. Ears: No lesions. Nose appeared normal. Throat: No exudate or erythema. NECK: Supple. No JVD, no carotid bruit. No lymphadenopathy or thyromegaly. LUNGS: Clear to auscultation. Percussion note normal. Chest symmetrical. HEART: S1, S2, no S3. No murmurs. No cyanosis or clubbing. No ascites. Pulses: Dorsalis pedis and posterior tibial pulses +1 to +2 bilaterally. ABDOMEN: Soft. Nontender. Bowel sounds active. No CVA tenderness. No mass felt. EXTREMITIES: No edema. Full range of motion of all extremities, equal. NEUROLOGIC: No focal deficit. Cranial nerves II through XII are grossly intact. No headache. No double vision. SKIN: Not dry. Intact. Turgor - normal. LYMPHATIC: No palpable lymph nodes/no lymphedema. MUSCULOSKELETAL: Normal joints with no swelling. Muscle tone is normal. PLAN: Continue antibiotics of Flagyl and Cipro . TIME SPENT: More than 35 minutes. Plan and coordination of the patient's care discussed in the presence of nurse. LAYLA
[2022-03-27] MEDS ORDERED: NON-FORMULARY MEDICATION (Dulaglutide [Trulicity] 1.5 mg/0.5 mL pen injector) SUBCUT SCH (09:00)
--- NOTE | 2022-03-28 15:34 | PN ---
DATE OF SERVICE: 03/24/22 SUBJECTIVE: The patient's condition has improved significantly. Diverticulitis has clinically resolved. Cardiovascular status stable. The patient will be discharged on antibiotics. TIME SPENT: More than 35 minutes. Plan and coordination of the patient's care discussed in the presence of nurse. LAYLA
--- NOTE | 2022-03-28 15:37 | PN ---
CODING FOR BILLIN03/22/22 ADMISSION DAY LEVEL 5 03/23/22 INTERMEDIATE 03/24/22 FINAL DAY "D" IN DISCHARGE MTDD
== END 2022-03-24 12:25 | disposition home or self-care (01) | DRG 392 ==
LOC: ED 02:33 → MEDSURG A 02:33 → OBSVTOIN 04:41 → MEDSURG A 05:10
PROVIDERS: ADMIT Internal Medicine; ATTEND Internal Medicine
DX: I11.0 Hypertensive heart disease with heart failure; K57.32 Diverticulitis of large intestine without perforation or abscess without bleeding; I42.9 Cardiomyopathy, unspecified; I95.9 Hypotension, unspecified; Z79.899 Other long term (current) drug therapy; I48.91 Unspecified atrial fibrillation; Z20.822 Contact with and (suspected) exposure to COVID-19; E86.0 Dehydration; Z51.81 Encounter for therapeutic drug level monitoring; R79.89 Other specified abnormal findings of blood chemistry; I25.10 Atherosclerotic heart disease of native coronary artery without angina pectoris; R07.82 Intercostal pain; I50.9 Heart failure, unspecified; D64.9 Anemia, unspecified; R11.2 Nausea with vomiting, unspecified